=== PATIENT | female | born 1940 | race Caucasian/White ===

== ENCOUNTER 2017-11-24 12:30 | Inpatient (IN) | payer MEDICAID, MEDICARE ==
--- NOTE | 2017-11-24 13:17 | C.PDOC ---
History Of Present Illness 77 year old female presents to the emergency department with a complaint of a chest pain and shortness of breath x3-4 days. 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 came from [place] 1 mo ago. Associated left foot swelling, and fever at night. Denies cough. Time Seen by Provider: 11/24/17 13:05 Chief Complaint (Nursing): Shortness Of Breath History Per: Patient History/Exam Limitations: no limitations Onset/Duration Of Symptoms: Days Current Symptoms Are (Timing): Still Present Past Medical History Reviewed: Historical Data, Nursing Documentation, Vital Signs Vital Signs: Last Vital Signs Temp 98 F 11/24/17 12:34 Pulse 67 11/24/17 17:03 Resp 16 11/24/17 17:03 BP 138/72 11/24/17 17:03 Pulse Ox 97 11/24/17 17:03 - Medical History PMH: CAD, Diabetes, HTN, Hypercholesterolemia Surgical History: CABG, Coronary Stent Family History: States: Unknown Family Hx - Social History Hx Tobacco Use: No Hx Alcohol Use: No Hx Substance Use: No - Immunization History Hx Tetanus Toxoid Vaccination: No Hx Influenza Vaccination: Yes Hx Pneumococcal Vaccination: Yes Review Of Systems Except As Marked, All Systems Reviewed And Found Negative. (As per HPI, othewise negative) Constitutional: Positive for: Fever Cardiovascular: Positive for: Chest Pain Respiratory: Positive for: Shortness of Breath. Negative for: Cough Musculoskeletal: Positive for: Other (Left foot swelling) Neurological: Positive for: Weakness (Left-sided (not new)) Physical Exam - Physical Exam Appears: Well, Non-toxic, No Acute Distress Skin: Normal Color, Warm, Dry Head: Atraumatic, Normacephalic, No Tenderness Chest: Symmetrical, No Deformity Cardiovascular: Rhythm Regular, No Murmur Respiratory: No Decreased Breath Sounds, No Accessory Muscle Use, No Wheezing, Other (crackles at the bases of the lungs bilaterally) Gastrointestinal/Abdominal: Normal Exam, Soft, No Tenderness Extremity: Normal ROM (Left-sided weakness), No Pedal Edema Neurological/Psych: Oriented x3, Normal Speech, Other ((+)lue weakness ) ED Course And Treatment - Laboratory Results Result Diagrams: 11/24/17 13:21 11/24/17 13:21 O2 Sat by Pulse Oximetry: 99 (RA) Pulse Ox Interpretation: Normal Medical Decision Making Medical Decision Making: cp ro acs pe,dvt pna - Time: 1311 EKG BNP CMP Troponin I CBC w/ diff PTT & Prothrombin Chest x-ray Aspirin 325 mg PO Duplex Venous Lower Extrm B/L Reevaluation --EKG: Normal sinus rhythm at 80 bpm. Non-specific ST wave changes laterally. new changes from previous. ct neg. trop neg. discussed wtih hospitalist. accepted. asa given Disposition - Disposition Disposition: HOSPITALIZED Disposition Time: 04:00 Condition: STABLE - Clinical Impression Clinical Impression: Chest pain - Scribe Statement Scribe~Attestation: Documented by Violetta Jacinto, acting as a~scribe~for Agapito Scanlon DO. ~ Provider~Scribe~Attestation: All medical record entries made by the~Kathiibe~were at my direction and personally dictated by me. I have reviewed the chart and agree that the record accurately reflects my personal performance of the history, physical exam, medical decision making, and the department course for this patient. I have also personally directed, reviewed, and agree with the discharge instructions and disposition. ~
[2017-11-24 13:28] LABS: HEMOGLOBIN 13.2 g/dL (11.0-16.0); MEAN CELL VOLUME 86.1 fL (81.0-99.0); MEAN CORPUSCULAR HEMOGLOBIN 30.5 pg (27.0-31.0); MEAN CORPUSCULAR HGB CONC 35.4 g/dL (33.0-37.0); RBC 4.32 Mil/uL (3.80-5.20); RED CELL DISTRIBUTION WIDTH 13.1 % (11.5-14.5); WHITE BLOOD COUNT 10.8 K/uL (4.8-10.8)
[2017-11-24 13:29] LABS: BASO # 0.1 K/uL (0.0-0.2); BASO % 0.7 % (0.0-2.0); EOS # 0.5 K/uL (0.0-0.7); EOS % 4.5 % (0.0-4.0); LYMPH # 1.7 K/uL (1.0-4.3); LYMPH % 15.9 % (20.0-40.0); MEAN PLATELET VOLUME 8.7 fL (7.2-11.7); MONO # 0.5 K/uL (0.0-0.8); MONO % 4.9 % (0.0-10.0)
[2017-11-24 13:43] LABS: INR 1.1; PROTHROMBIN TIME 12.1 SECONDS (9.7-12.2)
[2017-11-24 13:44] LABS: ALB/GLOB RATIO 1.1 (1.0-2.1); ALBUMIN 3.9 g/dL (3.5-5.0); ALT/SGPT 13 U/L (9-52); AST/SGOT 20 U/L (14-36); BLOOD UREA NITROGEN 16 mg/dL (7-17); CALCIUM 8.7 mg/dl (8.6-10.4); GFR AFRICAN-AMERICAN > 60; GFR NON-AFRICAN AMERICAN > 60
--- NOTE | 2017-11-24 14:47 | RAD ---
PROCEDURE: CHEST RADIOGRAPH, 1 VIEW HISTORY: chest pain COMPARISON: 05/01/2014 FINDINGS: LUNGS: Clear. PLEURA: No pneumothorax or pleural fluid seen. CARDIOVASCULAR: Normal. OSSEOUS STRUCTURES: No significant abnormalities. VISUALIZED UPPER ABDOMEN: Normal. OTHER FINDINGS: None. IMPRESSION: No active disease.
--- NOTE | 2017-11-24 15:29 | VASCLAB ---
PROCEDURE: Lower Extremity Venous Duplex Exam. HISTORY: leg swelling PRIORS: None. TECHNIQUE: Bilateral common femoral, femoral, popliteal and posterior tibial, peroneal and great saphenous veins were evaluated. Flow was assessed with color Doppler, compressibility, assessment of phasic flow and augmentation response. Report prepared by SLIM Golden, RVT FINDINGS: RIGHT: 1. Common Femoral Vein: 1.1. Compressibility - Fully compressible: Thrombus - None : Flow - Phasic: Augmentation -Normal: Reflux - None. 2. Femoral Vein: 2.1. Compressibility - Fully compressible: Thrombus - None : Flow - Phasic: Augmentation -Normal: Reflux - None. 3. Popliteal Vein: 3.1. Compressibility - Fully compressible: Thrombus - None : Flow - Phasic: Augmentation -Normal: Reflux - None. 4. Posterior Tibial Vein: 4.1. Compressibility - Fully compressible: Thrombus - None: Flow - Phasic: Augmentation -Normal: Reflux - None. 5. Peroneal Vein: 5.1. Compressibility - Fully compressible: Thrombus - None: Flow - Phasic: Augmentation -Normal: Reflux - None. 6. Great Saphenous Vein: 6.1. Compressibility - Fully compressible: Thrombus - None: Flow - Phasic: Augmentation - Normal: Reflux - None. LEFT: 1. Common Femoral Vein: 1.1. Compressibility - Fully compressible: Thrombus - None: Flow - Phasic: Augmentation -Normal: Reflux - None. 2. Femoral Vein: 2.1. Compressibility - Fully compressible: Thrombus - None: Flow - Phasic: Augmentation -Normal: Reflux - None. 3. Popliteal Vein: 3.1. Compressibility - Fully compressible: Thrombus - None : Flow - Phasic: Augmentation -Normal: Reflux - None. 4. Posterior Tibial Vein: 4.1. Compressibility - Fully compressible: Thrombus - None: Flow - Phasic: Augmentation -Normal: Reflux - None. 5. Peroneal Vein: 5.1. Compressibility - Fully compressible: Thrombus - None: Flow - Phasic: Augmentation -Normal: Reflux - None. 6. Great Saphenous Vein: 6.1. Compressibility - Fully compressible: Thrombus - None: Flow - Phasic: Augmentation - Normal: Reflux - None. OTHER FINDINGS: Right: None significant. Left: None significant. IMPRESSION: Right: No evidence of deep or superficial vein thrombosis of the right lower extremity. Normal valve function noted of the right side. Left: No evidence of deep or superficial vein thrombosis of the left lower extremity. Normal valve function noted of the left side.
--- NOTE | 2017-11-24 16:45 | CT ---
PROCEDURE: CT Chest with contrast (Pulmonary Angiogram) HISTORY: cp sob COMPARISON: None available. TECHNIQUE: Axial computed tomography images were obtained of the chest in the pulmonary arterial phase of enhancement. Coronal and sagittal reformatted images were created and reviewed. Intravenous contrast dose: 100 mL Visipaque 320 Radiation dose: Total exam DLP = 0192.81 mGy-cm. This CT exam was performed using one or more of the following dose reduction techniques: Automated exposure control, adjustment of the mA and/or kV according to patient size, and/or use of iterative reconstruction technique. FINDINGS: PULMONARY ARTERIES: Unremarkable. No pulmonary embolism. AORTA: No acute findings. No thoracic aortic aneurysm. LUNGS: Incidental 5 mm nodule in left upper lobe, lingular segment. No followup required. No other pulmonary mass. Mild bilateral dependent atelectasis in the lower lobes. No infiltrate. PLEURAL SPACES: Unremarkable. No effusion or pneuomothorax. HEART: Unremarkable. No cardiomegaly. No significant pericardial effusion. LYMPH NODES: Incidental 8 mm pre-vascular mediastinal node common nonspecific. No other mediastinal or hilar lymphadenopathy. BONES, CHEST WALL: Unremarkable. No fracture or destructive lesion OTHER FINDINGS: Unremarkable. IMPRESSION: No evidence of pulmonary embolism. No pulmonary infiltrate. No acute abnormality.
--- NOTE | 2017-11-24 17:29 | CP.PCM.HP ---
<Neli Weiss - Last Filed: 11/24/17 18:45> History of Present Illness - History of Present Illness History of Present Illness: CC: Chest pain, shortness of breath HPI: Patient presents with chest pain with breathing and shortness of breath. Patient's daughter at bedside and states that patient came back recently from [place] and started feeling chest pain that comes and goes with breathing. Patient states that it's a sharp pain. Patient lives at home with daughter. Per Daughter, Patient had a stroke in [place] October 15, 2017 and October 20, 2017) where she lost motor function of left upper extremity and decreased strength of left leg. Patient sits on the futon and is moved around the house in a wheelchair. Patient's daughter and patient state that patient is forgetful and memory is foggy. Patient's daughter states that she has difficulty eating at times and has decreased appetite. Patient denies fever, chills, nausea, vomiting, diarrhea, constipation. PMH: DM, Hypercholesterolemia, DE with stents x 2 events (latest about 2 years ago), Stroke x 2 (October 15, 2017, October 20, 2017 in [place]) PSH: stent placement Social history: no ETOH, no illicit drugs. No smoking. Patient lives at home with daughter. PMD: Dr. Wu Present on Admission - Present on Admission Any Indicators Present on Admission: No History of DVT/PE: No History of Uncontrolled Diabetes: No Urinary Catheter: No Decubitus Ulcer Present: No Review of Systems - Review of Systems Systems not reviewed;Unavailable: Acuity of Condition All systems: reviewed and no additional remarkable complaints except - Constitutional Constitutional: As Per HPI - Respiratory Respiratory: As Per HPI, Cough (non-productive, occasional). absent: Dyspnea, Hemoptysis, Wheezing, Stridor, Excessive Mucous Production, Change in Mucous Color - Genitourinary Genitourinary: Dysuria, Urinary Incontinence Past Patient History - Past Social History Smoking Status: Never Smoked - CARDIAC Hx Hypercholesterolemia: Yes Hx Hypertension: Yes - PSYCHIATRIC Hx Substance Use: No - SURGICAL HISTORY Hx Coronary Artery Bypass Graft: Yes Hx Coronary Stent: Yes Meds Allergies/Adverse Reactions: Allergies Allergy/AdvReac Type Severity Reaction Status Date / Time No Known Allergies Allergy Verified 05/01/14 12:49 Physical Exam - Constitutional Appears: Non-toxic, No Acute Distress, Chronically Ill - Head Exam Head Exam: NORMAL INSPECTION, NORMOCEPHALIC - Eye Exam Eye Exam: EOMI, Normal appearance Pupil Exam: NORMAL ACCOMODATION, PERRL - ENT Exam ENT Exam: Mucous Membranes Moist, Normal Exam - Neck Exam Neck exam: Positive for: Full Rom, Normal Inspection - Respiratory Exam Respiratory Exam: Chest Wall Tenderness (right side that travels to back on palpation of ribs, sternal chest pain. ). absent: Accessory Muscle Use - Cardiovascular Exam Cardiovascular Exam: REGULAR RHYTHM, +S1, +S2 - GI/Abdominal Exam GI & Abdominal Exam: Normal Bowel Sounds, Soft. absent: Tenderness - Extremities Exam Extremities exam: Positive for: full ROM. Negative for: pedal edema - Back Exam Back exam: FULL ROM, NORMAL INSPECTION. absent: paraspinal tenderness - Neurological Exam Neurological exam: Alert Additional comments: Patient has 3/5 muscle strength of left lower extremity Patient has 5/5 muscle strength of right upper and right lower extremity Patient's left upper extremity is kept in a sling like position unless lifted by patients own right upper extremity. Patient states no sensation of left lower extremity - Psychiatric Exam Psychiatric exam: Normal Affect, Normal Mood - Skin Skin Exam: Dry, Intact, Pallor Results - Vital Signs Recent Vital Signs: Last Vital Signs Temp 98 F 11/24/17 12:34 Pulse 67 11/24/17 17:03 Resp 16 11/24/17 17:03 BP 138/72 11/24/17 17:03 Pulse Ox 97 11/24/17 17:03 - Labs Result Diagrams: 11/24/17 13:21 11/24/17 13:21 Labs: Laboratory Results - last 24 hr 11/24/17 11/24/17 11/24/17 13:21 13:21 13:21 WBC 10.8 RBC 4.32 Hgb 13.2 Hct 37.2 MCV 86.1 D MCH 30.5 MCHC 35.4 RDW 13.1 Plt Count 270 MPV 8.7 Neut % (Auto) 74.0 Lymph % (Auto) 15.9 L [place] % (Auto) 4.9 Eos % (Auto) 4.5 H Baso % (Auto) 0.7 Neut # (Auto) 8.0 H Lymph # (Auto) 1.7 [place] # (Auto) 0.5 Eos # (Auto) 0.5 Baso # (Auto) 0.1 PT 12.1 INR 1.1 APTT 30 Sodium 139 Potassium 3.7 Chloride 101 Carbon Dioxide 26 Anion Gap 16 BUN 16 Creatinine 0.8 Est GFR ( Amer) > 60 Est GFR (Non-Af Amer) > 60 Random Glucose 322 H Calcium 8.7 Total Bilirubin 0.5 AST 20 ALT 13 Alkaline Phosphatase 75 Troponin I < 0.0120 NT-Pro-B Natriuret Pep 68.0 Total Protein 7.6 Albumin 3.9 Globulin 3.7 Albumin/Globulin Ratio 1.1 Assessment & Plan - Assessment and Plan (Free Text) Assessment: chest pain, SOB, ACS r/o YARI neg x 1, f/u YARI Q6H 1900, 0100 CT Chest: incidental 5mm nodule on left upper lobe, lingular segment. No evidence of PE. no pulmonary infiltrate CXR: no active disease ASA 325 mg PO once given in ED Cardiac stent x 2 (last stent placed 2 years ago) Cardio consult: Dr. Muñoz Plavix 75 mg POQD ASA 81 mg PO QD glucotrol 10mg POQD CVA x 2 October 15, 2017 and October 20, 2017 Neuro: Dr. Yessica PAYTON glucotrol 10mg POQD ?arrythmia? cardizem Social: Speak with slab worker about Visiting nurse, home health care, patient may need physical therapy and/or help at home due to left lower extremity weakness and left upper extremity immobility secondary to stroke ( October 15, 2017 and October 20, 2017) discussed with Dr. Tia Weiss DO PGY1 - Date & Time Date: 11/24/17 Time: 18:26 <Nimo Weber - Last Filed: 11/28/17 00:10> Results - Vital Signs Recent Vital Signs: Last Vital Signs Temp 99 F 11/27/17 15:40 Pulse 74 11/27/17 15:46 Resp 18 11/27/17 15:40 BP 156/63 H 11/27/17 15:40 Pulse Ox 96 11/27/17 15:40 - Labs Result Diagrams: 11/27/17 07:20 11/27/17 07:20 Labs: Laboratory Results - last 24 hr 11/27/17 11/27/17 11/27/17 06:39 07:20 07:20 WBC 9.8 RBC 4.12 Hgb 12.4 Hct 35.5 MCV 86.1 MCH 30.1 MCHC 35.0 RDW 13.3 Plt Count 231 MPV 8.6 Neut % (Auto) 58.3 Lymph % (Auto) 27.2 [place] % (Auto) 7.1 Eos % (Auto) 6.8 H Baso % (Auto) 0.6 Neut # (Auto) 5.7 Lymph # (Auto) 2.7 [place] # (Auto) 0.7 Eos # (Auto) 0.7 Baso # (Auto) 0.1 Sodium 142 Potassium 5.0 Chloride 104 Carbon Dioxide 29 Anion Gap 14 BUN 9 Creatinine 0.8 Est GFR ( Amer) > 60 Est GFR (Non-Af Amer) > 60 POC Glucose (mg/dL) 133 H Random Glucose 134 H Calcium 9.0 Phosphorus 3.9 Magnesium 1.8 Total Bilirubin 0.4 AST 23 ALT 10 Alkaline Phosphatase 68 Total Protein 7.2 Albumin 3.8 Globulin 3.4 Albumin/Globulin Ratio 1.1 11/27/17 11/27/17 11/27/17 12:00 16:59 21:11 WBC RBC Hgb Hct MCV MCH MCHC RDW Plt Count MPV Neut % (Auto) Lymph % (Auto) [place] % (Auto) Eos % (Auto) Baso % (Auto) Neut # (Auto) Lymph # (Auto) [place] # (Auto) Eos # (Auto) Baso # (Auto) Sodium Potassium Chloride Carbon Dioxide Anion Gap BUN Creatinine Est GFR ( Amer) Est GFR (Non-Af Amer) POC Glucose (mg/dL) 159 H 151 H 126 H Random Glucose Calcium Phosphorus Magnesium Total Bilirubin AST ALT Alkaline Phosphatase Total Protein Albumin Globulin Albumin/Globulin Ratio Attending/Attestation - Attestation I have personally seen and examined this patient.: Yes I have fully participated in the care of the patient.: Yes I have reviewed all pertinent clinical information: Yes Notes (Text): Patient was seen and examined by me in the ER History taken from her daughter. Patient has dementia.s/p stroke in October 2017 with L side weakness She was brought for chest pain. 1.Chest r/o ACS 2.Recent CVA Neuro consult,work up for CVA and PT 3.HTN ,s/p stent and CAD continue home meds Assessment and the plan discussed with the resident I agree with the documentation of the residents assessment athe plan
[2017-11-24] MEDS ORDERED: diltiaZEM 240 mg/24 Hours CD Cap PO ONE (18:40)
[2017-11-24] MEDS ORDERED: Glucagon Recombinant 1 mg Inj IM PRN (18:41)
[2017-11-24] MEDS ORDERED: Dextrose 50% SYRINGE Inj (50 ml) IV PRN (18:41)
[2017-11-24 20:07] LABS: CK-MB 0.84 ng/mL (0.0-3.38); TROPONIN I 0.016 ng/mL (0.00-0.120)
--- NOTE | 2017-11-24 21:46 | CP.PCM.CON ---
History of Present Illness - History of Present Illness History of Present Illness: 77 years old lady with history of diabetes, questionable coronary artery disease and percutaneous intervention. The daughter does not family member that time and place of THE procedure if any. Reportedly she was in [place] where she had cerebrovascular accident, currently she is confused bedridden and left arm flaccid. She was admitted through the emergency department with reported chest pain. Upon questioning there is no chest pain and no EKG changes, enzymes are negative. There was a report in the chart of pleuritic chest pain however the patient and the daughter denies at this time. With the history of diabetes the likelihood of coronary artery disease is high whether or not with percutaneous intervention mentioned. We will rule out DE by enzymes check an echocardiogram and observe. She has a high risk for complication as invasive management. We will follow-up with the neurology workup. Review of Systems - Review of Systems Systems not reviewed;Unavailable: Altered Mental Status, Language Barrier - Constitutional Constitutional: Anorexia, Weakness - EENT Eyes: absent: Discharge Ears: absent: Ear Discharge, Dizziness Nose/Mouth/Throat: absent: Epistaxis - Cardiovascular Cardiovascular: absent: Acrocyanosis, Chest Pain, Diaphoresis, Dyspnea, Edema, Palpitations, Syncope - Respiratory Respiratory: absent: Cough, Hemoptysis - Gastrointestinal Gastrointestinal: absent: Abdominal Pain, Diarrhea, Hematochezia, Vomiting - Genitourinary Genitourinary: absent: Change in Urinary Stream - Reproductive: Female Reproductive:Female: Post Menopausal Past Patient History - Past Social History Smoking Status: Never Smoked - CARDIAC Hx Hypercholesterolemia: Yes Hx Hypertension: Yes - MUSCULOSKELETAL/RHEUMATOLOGICAL Hx Falls: Yes - PSYCHIATRIC Hx Substance Use: No - SURGICAL HISTORY Hx Coronary Artery Bypass Graft: Yes Hx Coronary Stent: Yes Meds Allergies/Adverse Reactions: Allergies Allergy/AdvReac Type Severity Reaction Status Date / Time No Known Allergies Allergy Verified 05/01/14 12:49 - Medications Medications: Current Medications Aspirin (Aspirin Chewable) 81 mg PO DAILY [facility] Clopidogrel Bisulfate (Plavix) 75 mg PO DAILY [facility] Dextrose (Dextrose 50% Inj) 0 ml IV STAT PRN; Protocol PRN Reason: Hypoglycemia Protocol Dextrose (Glutose 15) 0 gm PO ONCE PRN; Protocol PRN Reason: Hypoglycemia Protocol Diltiazem HCl (Cardizem) 240 mg PO DAILY [facility] Glipizide (Glucotrol) 10 mg PO DAILY [facility] Glucagon (Glucagen Diagnostic Kit) 0 mg IM STAT PRN; Protocol PRN Reason: Hypoglycemia Protocol Heparin Sodium (Porcine) (Heparin) 5,000 units SC Q8 [facility] Dextrose (Dextrose 5% In Water 1000 Ml) 1,000 mls @ 0 mls/hr IV .Q0M PRN; Protocol; Per Protocol PRN Reason: Hypoglycemia Protocol Insulin Human Regular (Novolin R) 0 unit SC ACHS [facility] PRN Reason: Protocol Rosuvastatin Calcium (Crestor) 20 mg PO HS [facility] Physical Exam - Constitutional Appears: Non-toxic - Head Exam Head Exam: ATRAUMATIC - Eye Exam Eye Exam: EOMI - ENT Exam ENT Exam: Mucous Membranes Moist - Neck Exam Neck exam: Negative for: Lymphadenopathy, Thyromegaly - Respiratory Exam Respiratory Exam: Clear to Auscultation Bilateral. absent: Rales - Cardiovascular Exam Cardiovascular Exam: REGULAR RHYTHM, Systolic Murmur - GI/Abdominal Exam GI & Abdominal Exam: Normal Bowel Sounds. absent: Organomegaly - Rectal Exam Rectal Exam: Deferred - Extremities Exam Extremities exam: Positive for: normal capillary refill. Negative for: calf tenderness - Neurological Exam Neurological exam: Altered - Psychiatric Exam Psychiatric exam: Anxious - Skin Skin Exam: Dry Results - Vital Signs Recent Vital Signs: Last Vital Signs Temp 98 F 11/24/17 12:34 Pulse 67 11/24/17 17:03 Resp 16 11/24/17 17:03 BP 138/72 11/24/17 17:03 Pulse Ox 99 11/24/17 19:19 - Labs Result Diagrams: 11/24/17 13:21 11/24/17 13:21 Labs: Laboratory Results - last 24 hr 11/24/17 11/24/17 11/24/17 13:21 13:21 13:21 WBC 10.8 RBC 4.32 Hgb 13.2 Hct 37.2 MCV 86.1 D MCH 30.5 MCHC 35.4 RDW 13.1 Plt Count 270 MPV 8.7 Neut % (Auto) 74.0 Lymph % (Auto) 15.9 L [place] % (Auto) 4.9 Eos % (Auto) 4.5 H Baso % (Auto) 0.7 Neut # (Auto) 8.0 H Lymph # (Auto) 1.7 [place] # (Auto) 0.5 Eos # (Auto) 0.5 Baso # (Auto) 0.1 PT 12.1 INR 1.1 APTT 30 Sodium 139 Potassium 3.7 Chloride 101 Carbon Dioxide 26 Anion Gap 16 BUN 16 Creatinine 0.8 Est GFR ( Amer) > 60 Est GFR (Non-Af Amer) > 60 Random Glucose 322 H Calcium 8.7 Total Bilirubin 0.5 AST 20 ALT 13 Alkaline Phosphatase 75 Total Creatine Kinase CK-MB (Mass) Troponin I < 0.0120 NT-Pro-B Natriuret Pep 68.0 Total Protein 7.6 Albumin 3.9 Globulin 3.7 Albumin/Globulin Ratio 1.1 11/24/17 19:35 WBC RBC Hgb Hct MCV MCH MCHC RDW Plt Count MPV Neut % (Auto) Lymph % (Auto) [place] % (Auto) Eos % (Auto) Baso % (Auto) Neut # (Auto) Lymph # (Auto) [place] # (Auto) Eos # (Auto) Baso # (Auto) PT INR APTT Sodium Potassium Chloride Carbon Dioxide Anion Gap BUN Creatinine Est GFR ( Amer) Est GFR (Non-Af Amer) Random Glucose Calcium Total Bilirubin AST ALT Alkaline Phosphatase Total Creatine Kinase 32 CK-MB (Mass) 0.84 Troponin I 0.0160 NT-Pro-B Natriuret Pep Total Protein Albumin Globulin Albumin/Globulin Ratio Assessment & Plan (1) Chest pain Status: Acute Comment: atypical with pleuritic component check an echocardiogram and enzymes (2) History of CVA (cerebrovascular accident) Status: Chronic (3) Diabetes mellitus Status: Chronic (4) History of percutaneous coronary intervention Status: Chronic
[2017-11-24] MEDS: (Novolin R) Insulin Human Regular 100 units/ml vial SC SCH (22:21)
[2017-11-25 01:49] LABS: CK-MB 0.95 ng/mL (0.0-3.38); TROPONIN I 0.012 ng/mL (0.00-0.120)
[2017-11-25] MEDS: (Novolin R) Insulin Human Regular 100 units/ml vial SC SCH ×4 (08:00→21:57)
[2017-11-25 08:18] LABS: BASO # 0.1 K/uL (0.0-0.2); BASO % 0.8 % (0.0-2.0); EOS # 0.8 K/uL (0.0-0.7); EOS % 8.9 % (0.0-4.0); HEMOGLOBIN 12.5 g/dL (11.0-16.0); LYMPH # 2.2 K/uL (1.0-4.3); LYMPH % 23.8 % (20.0-40.0); MEAN CELL VOLUME 85.1 fL (81.0-99.0); MEAN CORPUSCULAR HEMOGLOBIN 30.1 pg (27.0-31.0); MEAN CORPUSCULAR HGB CONC 35.4 g/dL (33.0-37.0); MEAN PLATELET VOLUME 8.4 fL (7.2-11.7); MONO # 0.5 K/uL (0.0-0.8); MONO % 5.5 % (0.0-10.0); NEUT # 5.6 K/uL (1.8-7.0); RBC 4.14 Mil/uL (3.80-5.20); RED CELL DISTRIBUTION WIDTH 12.9 % (11.5-14.5); WHITE BLOOD COUNT 9.1 K/uL (4.8-10.8)
[2017-11-25 08:30] LABS: ALBUMIN 3.4 g/dL (3.5-5.0); ALT/SGPT 15 U/L (9-52); AST/SGOT 20 U/L (14-36); BLOOD UREA NITROGEN 12 mg/dL (7-17); CALCIUM 9.1 mg/dl (8.6-10.4); GFR AFRICAN-AMERICAN > 60; GFR NON-AFRICAN AMERICAN > 60; HDL CHOLESTEROL 30 mg/dL (30-70)
[2017-11-25 08:41] LABS: LDL CHOLESTEROL 73 mg/dL (0-129)
[2017-11-25] MEDS ORDERED: diltiaZEM 240 mg/24 Hours CD Cap PO SCH (10:00)
--- NOTE | 2017-11-25 10:11 | CP.PCM.PN ---
Subjective - Date & Time of Evaluation Date of Evaluation: 11/25/17 Time of Evaluation: 09:45 - Subjective Subjective: Patient seen and examined at bedside with family present. No acute events reported overnight. Patient still has no strength on left upper extremity and decreased strength on left lower extremity. Patient has good appetite, resting in bed comfortably. She denies fever, chills, shortness of breath, chest pain, nausea, vomiting, diarrhea, or urinary symptoms. Objective - Vital Signs/Intake and Output Vital Signs (last 24 hours): Temp Pulse Resp BP Pulse Ox 98.0 F 80 20 155/62 H 99 11/25/17 07:00 11/25/17 07:00 11/25/17 07:00 11/25/17 07:00 11/25/17 07:00 Intake and Output: 11/25/17 11/25/17 06:59 18:59 Intake Total 260 Balance 260 - Medications Medications: Current Medications Aspirin (Aspirin Chewable) 81 mg PO DAILY [facility] Clopidogrel Bisulfate (Plavix) 75 mg PO DAILY [facility] Dextrose (Dextrose 50% Inj) 0 ml IV STAT PRN; Protocol PRN Reason: Hypoglycemia Protocol Dextrose (Glutose 15) 0 gm PO ONCE PRN; Protocol PRN Reason: Hypoglycemia Protocol Diltiazem HCl (Cardizem) 240 mg PO DAILY [facility] Glipizide (Glucotrol) 10 mg PO DAILY [facility] Glucagon (Glucagen Diagnostic Kit) 0 mg IM STAT PRN; Protocol PRN Reason: Hypoglycemia Protocol Heparin Sodium (Porcine) (Heparin) 5,000 units SC Q8 [facility] Last Admin: 11/25/17 05:54 Dose: 5,000 units Dextrose (Dextrose 5% In Water 1000 Ml) 1,000 mls @ 0 mls/hr IV .Q0M PRN; Protocol; Per Protocol PRN Reason: Hypoglycemia Protocol Insulin Human Regular (Novolin R) 0 unit SC ACHS [facility] PRN Reason: Protocol Last Admin: 11/24/17 22:21 Dose: Not Given Rosuvastatin Calcium (Crestor) 20 mg PO HS [facility] Last Admin: 11/24/17 22:20 Dose: 20 mg - Labs Labs: 11/25/17 08:05 11/25/17 08:05 PT 12.1 SECONDS (9.7-12.2) 11/24/17 13:21 INR 1.1 11/24/17 13:21 APTT 30 SECONDS (21-34) 11/24/17 13:21 - Additional Findings Additional findings: - Constitutional Appears: Non-toxic, No Acute Distress, Chronically Ill - Head Exam Head Exam: NORMAL INSPECTION, NORMOCEPHALIC - Eye Exam Eye Exam: EOMI, Normal appearance Pupil Exam: NORMAL ACCOMODATION, PERRL - ENT Exam ENT Exam: Mucous Membranes Moist, Normal Exam - Neck Exam Neck exam: Positive for: Full Rom, Normal Inspection - Respiratory Exam Respiratory Exam: Chest Wall Tenderness (right side that travels to back on palpation of ribs, sternal chest pain. ). absent: Accessory Muscle Use - Cardiovascular Exam Cardiovascular Exam: REGULAR RHYTHM, +S1, +S2 - GI/Abdominal Exam GI & Abdominal Exam: Normal Bowel Sounds, Soft. absent: Tenderness - Extremities Exam Extremities exam: Positive for: full ROM. Negative for: pedal edema - Back Exam Back exam: FULL ROM, NORMAL INSPECTION. absent: paraspinal tenderness - Neurological Exam Neurological exam: Alert Additional comments: Patient has 3/5 muscle strength of left lower extremity Patient has 5/5 muscle strength of right upper and right lower extremity Patient's left upper extremity is kept in a sling like position unless lifted by patients own right upper extremity. Patient states no sensation of left lower extremity - Psychiatric Exam Psychiatric exam: Normal Affect, Normal Mood - Skin Skin Exam: Dry, Intact, Pallor Assessment and Plan - Assessment and Plan (Free Text) Assessment: Chest pain -Resolved -Troponin negative x3 -EKG negative for acute ST changes -CTA shows no evidence of PE -LE doppler shows no evidence of DVT -Echo shows estimate EF 46%, mild impaired systolic function -Cardiology consulted, Dr. Muñoz help appreciated -Follow neurology recommendations -Plavix 75 mg -ASA 81 mg Hx of Right sided CVA -Neurology consulted, Dr. 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 Per Dr. Lama, will arrange for neurology intervention procedure -Follow up with carotid doppler DM -Glipizide 10mg po -ISS -Hypoglycemic protocol -Accucheck ACHS Prophylactic measures -Plavix, ASA -GI ppx not indicated -PT/OT Dispo: patient will require home visiting nurse and physical therapy upon discharge
--- NOTE | 2017-11-25 13:10 | CARD ---
APPROVED REPORT EXAM: Two-dimensional and M-mode echocardiogram with Doppler and color Doppler. Other Information Quality : GoodRhythm : INDICATION CVA/TIA CAD Chest Pain 2D DIMENSIONS IVSd1.3 (0.7-1.1cm)LVDd2.9 (3.9-5.9cm) LVOT Diameter1.5 (1.8-2.4cm)PWd1.3 (0.7-1.1cm) LVDs2.2 (2.5-4.0cm)FS (%) 22.0 % LVEF (%)46.1 (>50%) M-Mode DIMENSIONS Left Atrium (MM)3.16 (2.5-4.0cm)Aortic Root2.76 (2.2-3.7cm) Aortic Cusp Exc.1.46 (1.5-2.0cm) Aortic Valve AI P 1/2 [id number] Mitral Valve MV E Dziiemhq147.1cm/sMV A Jcndekrn374.9cm/sMV [id number] E/A ratio0.9MVA (PHT)2.00cm2 TDI E/Lateral E'0.0E/Medial E'0.0 Tricuspid Valve TR Peak Grgzoarw765lk/sTR Peak Gr.[id number] LEFT VENTRICLE The left ventricle is normal size. There is mild concentric left ventricular hypertrophy. The systolic function is mildly impaired. There is global hypokinesis of the left ventricle. Transmitral Doppler flow pattern is Grade I-abnormal relaxation pattern. RIGHT VENTRICLE The right ventricle is normal size. There is normal right ventricular wall thickness. The right ventricular systolic function is normal. ATRIA The left atrium size is normal. The right atrium size is normal. AORTIC VALVE The aortic valve is moderately thickened. There is mild aortic regurgitation. There is no aortic valvular stenosis. MITRAL VALVE The mitral valve is moderately thickened. There is no mitral valve stenosis. There is no mitral valve regurgitation noted. TRICUSPID VALVE The tricuspid valve is normal in structure. There is no tricuspid valve regurgitation noted. GREAT VESSELS The aortic root is normal in size. PERICARDIAL EFFUSION There is a small loculated anterior pericardial effusion. <Conclusion> The left ventricle is normal size. There is mild concentric left ventricular hypertrophy. The systolic function is mildly impaired. There is global hypokinesis of the left ventricle. Transmitral Doppler flow pattern is Grade I-abnormal relaxation pattern. There is mild aortic regurgitation.
--- NOTE | 2017-11-25 15:09 | MRI ---
PROCEDURE: MRI BRAIN WITHOUT CONTRAST HISTORY: stroke COMPARISON: None. TECHNIQUE: Multiplanar, multisequence MR images of the brain were obtained without intravenous contrast enhancement. FINDINGS: HEMORRHAGE: None. DWI: Heterogeneous restricted diffusion pattern seen involving a sub distribution of the anterior to mid right middle cerebral artery distribution compatible with a subacute or acute infarct with small infarction of the right parietal lobe ended discontinuous fashion. No significant mass effect appreciated in the infarcted may be hyperacute. BRAIN PARENCHYMA: Diffuse cerebral atrophy and chronic microangiopathy are reiterated with by thalamic, bilateral basal ganglia chronic lacunes identified. A chronic lobar infarct in the left occipital lobe. One are 2 tiny chronic lacune is seen in the right cerebellum as well. VENTRICLES: Unremarkable. No hydrocephalus. CRANIUM: Unremarkable. ORBITS: Grossly unremarkable. PARANASAL SINUSES/MASTOIDS: Clear VASCULAR SYSTEM: Skull base flow voids intact. OTHER FINDINGS: None. IMPRESSION: 1. Potential hyperacute lobar infarction right frontal lobe and limited portions of the right parietal lobe as there is no significant mass effect at this time. 2. Small chronic lobar infarction left occipital lobe. Multiple chronic lacunes noted. 3. Reiterated age related neuro degenerative changes. CT follow-up advised.
[2017-11-25] MEDS ORDERED: Iohexol 300 100 ML IJ ONE (16:23)
--- NOTE | 2017-11-25 16:54 | CT ---
PROCEDURE: CT Angiography of the Brain. HISTORY: stroke COMPARISON: None available. TECHNIQUE: CT angiography of the intracranial and neck arteries was performed. Coronal and sagittal maximum intensity projection reformatted images were generated. Contrast Dose: Omnipaque 300, 100 cc Radiation dose:Total exam DLP = 381.26 mGy-cm. This CT exam was performed using one or more of the following dose reduction techniques: Automated exposure control, adjustment of the mA and/or kV according to patient size, and/or use of iterative reconstruction technique. FINDINGS: INTERNAL CEREBRAL ARTERIES: The right ICA is occluded completely. The left internal carotid arteries skull base, petrous, cavernous and supraclinoid segments are bilaterally widely patent. ANTERIOR CEREBRAL ARTERIES: Unremarkable. A1 and A2 segments are widely patent. Smaller distal branches unremarkable, as visualized. MIDDLE CEREBRAL ARTERIES: Unremarkable. M1 and M2 segments are widely patent. Perisylvian branches grossly symmetric. POSTERIOR CIRCULATION: Basilar Artery: Unremarkable. Distal Vertebral Arteries: Unremarkable. Posterior Cerebral Arteries: Unremarkable. Posterior Inferior Cerebellar Arteries: Unremarkable. NECK CTA: Common Carotid arteries: The bilateral common carotid appear widely patent from their origins to their bifurcations with no significant stenosis appreciated. No evidence to suggest common carotid artery dissection. Internal Carotid arteries: There is a high-grade stenosis at the origin of the right internal carotid artery with the subsequent occlusion proxy 1 cm after the origin. No reconstitution is appreciated distally. No significant stenosis is appreciated throughout the left cervical internal carotid artery segment and there is no evidence of dissection either. External Carotid arteries: Appear unremarkable bilaterally. Vertebral arteries: The bilateral vertebral arteries appear normal in caliber from their origins to their junction with the basilar artery. No significant stenosis or definite pattern of dissection. ANEURYSM/ VASCULAR MALFORMATIONS: None. OTHER FINDINGS: Incidental extensive coronary artery atherosclerosis. IMPRESSION: 1. 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 No enhancement is seen in the skullbase/ intracranial right ICA segment either. Not necessarily discordant with ultrasound carotid arteries 11/25/2017 as this test covers only the initial few cm of the internal carotid arteries bilaterally. 2. Right anterior and middle cerebral artery collateralized blood flows provided via patent anterior communicating and posterior communicating arteries. 3. Widely patent cervical and, skullbase and intracranial left ICA. Widely patent bilateral common carotid arteries.
--- NOTE | 2017-11-25 22:33 | CP.PCM.CON ---
History of Present Illness - History of Present Illness History of Present Illness: 77 yr old woman who was brought here from [place], with chief complaint of chest pain and shortness of breath, who also had a stroke on October 20, 2017 when she was in [place], presenting with acute leg weakness. Apparently, the patient had a prior stroke, territory unknown about a year ago, leaving her with right arm weakness. She was evaluated there, but couldnt complete her workup due to lack of electricity in [facility]. Daughter became concerned when she became weaker in her left leg a week ago and brought her to [place]. 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 She has minimal decrease in ft, and pin on the left side, and no facial droop. Carotid Dopplers were already done and MRI Brain is pending. Dopplers show 100 % occlusion in the right ICA. The patient is already on aspirin and plavix. PMH/PSH: DM, HTN, FH/SH: lives in [place], no tobacco, no etoh. Has 8 children. All:nkda ON exam: AAOX3. pupils 3mm-2mm with light EOMI. CN 2-12 normal. Speech fluent, can name and repeat. motor; right arm plegia, left le/5, left foot drop, Sensory: decreased ft, pin, in left arm and left leg. Gait : not tested. DTR: +3 rul and rll and +2 ll bl. Toes downgoing. No clonus. Past Patient History - Past Social History Smoking Status: Never Smoked - CARDIAC Hx Hypercholesterolemia: Yes Hx Hypertension: Yes - MUSCULOSKELETAL/RHEUMATOLOGICAL Hx Falls: Yes - PSYCHIATRIC Hx Substance Use: No - SURGICAL HISTORY Hx Coronary Artery Bypass Graft: Yes Hx Coronary Stent: Yes Meds Allergies/Adverse Reactions: Allergies Allergy/AdvReac Type Severity Reaction Status Date / Time No Known Allergies Allergy Verified 05/01/14 12:49 - Medications Medications: Current Medications Aspirin (Aspirin Chewable) 81 mg PO DAILY [facility] Clopidogrel Bisulfate (Plavix) 75 mg PO DAILY [facility] Dextrose (Dextrose 50% Inj) 0 ml IV STAT PRN; Protocol PRN Reason: Hypoglycemia Protocol Dextrose (Glutose 15) 0 gm PO ONCE PRN; Protocol PRN Reason: Hypoglycemia Protocol Diltiazem HCl (Cardizem) 240 mg PO DAILY [facility] Glipizide (Glucotrol) 10 mg PO DAILY [facility] Glucagon (Glucagen Diagnostic Kit) 0 mg IM STAT PRN; Protocol PRN Reason: Hypoglycemia Protocol Heparin Sodium (Porcine) (Heparin) 5,000 units SC Q8 [facility] Last Admin: 11/25/17 05:54 Dose: 5,000 units Dextrose (Dextrose 5% In Water 1000 Ml) 1,000 mls @ 0 mls/hr IV .Q0M PRN; Protocol; Per Protocol PRN Reason: Hypoglycemia Protocol Insulin Human Regular (Novolin R) 0 unit SC ACHS [facility] PRN Reason: Protocol Last Admin: 11/24/17 22:21 Dose: Not Given Rosuvastatin Calcium (Crestor) 20 mg PO HS [facility] Last Admin: 11/24/17 22:20 Dose: 20 mg Results - Vital Signs Recent Vital Signs: Last Vital Signs Temp 98.0 F 11/25/17 07:00 Pulse 80 11/25/17 07:00 Resp 20 11/25/17 07:00 BP 155/62 H 11/25/17 07:00 Pulse Ox 99 11/25/17 07:00 - Labs Result Diagrams: 11/25/17 08:05 11/25/17 08:05 Labs: Laboratory Results - last 24 hr 11/24/17 11/24/17 11/24/17 13:21 13:21 13:21 WBC 10.8 RBC 4.32 Hgb 13.2 Hct 37.2 MCV 86.1 D MCH 30.5 MCHC 35.4 RDW 13.1 Plt Count 270 MPV 8.7 Neut % (Auto) 74.0 Lymph % (Auto) 15.9 L [place] % (Auto) 4.9 Eos % (Auto) 4.5 H Baso % (Auto) 0.7 Neut # (Auto) 8.0 H Lymph # (Auto) 1.7 [place] # (Auto) 0.5 Eos # (Auto) 0.5 Baso # (Auto) 0.1 PT 12.1 INR 1.1 APTT 30 Sodium 139 Potassium 3.7 Chloride 101 Carbon Dioxide 26 Anion Gap 16 BUN 16 Creatinine 0.8 Est GFR ( Amer) > 60 Est GFR (Non-Af Amer) > 60 POC Glucose (mg/dL) Random Glucose 322 H Calcium 8.7 Phosphorus Magnesium Total Bilirubin 0.5 AST 20 ALT 13 Alkaline Phosphatase 75 Total Creatine Kinase CK-MB (Mass) Troponin I < 0.0120 NT-Pro-B Natriuret Pep 68.0 Total Protein 7.6 Albumin 3.9 Globulin 3.7 Albumin/Globulin Ratio 1.1 Triglycerides Cholesterol LDL Cholesterol Direct HDL Cholesterol 11/24/17 11/24/17 11/25/17 19:35 21:36 01:20 WBC RBC Hgb Hct MCV MCH MCHC RDW Plt Count MPV Neut % (Auto) Lymph % (Auto) [place] % (Auto) Eos % (Auto) Baso % (Auto) Neut # (Auto) Lymph # (Auto) [place] # (Auto) Eos # (Auto) Baso # (Auto) PT INR APTT Sodium Potassium Chloride Carbon Dioxide Anion Gap BUN Creatinine Est GFR ( Amer) Est GFR (Non-Af Amer) POC Glucose (mg/dL) 174 H Random Glucose Calcium Phosphorus Magnesium Total Bilirubin AST ALT Alkaline Phosphatase Total Creatine Kinase 32 31 CK-MB (Mass) 0.84 0.95 Troponin I 0.0160 0.0120 NT-Pro-B Natriuret Pep Total Protein Albumin Globulin Albumin/Globulin Ratio Triglycerides Cholesterol LDL Cholesterol Direct HDL Cholesterol 11/25/17 11/25/17 11/25/17 06:13 08:05 08:05 WBC 9.1 RBC 4.14 Hgb 12.5 Hct 35.2 MCV 85.1 MCH 30.1 MCHC 35.4 RDW 12.9 Plt Count 256 MPV 8.4 Neut % (Auto) 61.0 Lymph % (Auto) 23.8 [place] % (Auto) 5.5 Eos % (Auto) 8.9 H Baso % (Auto) 0.8 Neut # (Auto) 5.6 Lymph # (Auto) 2.2 [place] # (Auto) 0.5 Eos # (Auto) 0.8 H Baso # (Auto) 0.1 PT INR APTT Sodium 140 Potassium 4.2 Chloride 103 Carbon Dioxide 26 Anion Gap 15 BUN 12 Creatinine 0.6 L Est GFR ( Amer) > 60 Est GFR (Non-Af Amer) > 60 POC Glucose (mg/dL) 167 H Random Glucose 143 H Calcium 9.1 Phosphorus 3.9 Magnesium 1.8 Total Bilirubin 0.4 AST 20 ALT 15 Alkaline Phosphatase 65 Total Creatine Kinase CK-MB (Mass) Troponin I NT-Pro-B Natriuret Pep Total Protein 6.6 Albumin 3.4 L Globulin 3.3 Albumin/Globulin Ratio 1.0 Triglycerides 168 H Cholesterol 130 LDL Cholesterol Direct 73 HDL Cholesterol 30 11/25/17 11:29 WBC RBC Hgb Hct MCV MCH MCHC RDW Plt Count MPV Neut % (Auto) Lymph % (Auto) [place] % (Auto) Eos % (Auto) Baso % (Auto) Neut # (Auto) Lymph # (Auto) [place] # (Auto) Eos # (Auto) Baso # (Auto) PT INR APTT Sodium Potassium Chloride Carbon Dioxide Anion Gap BUN Creatinine Est GFR ( Amer) Est GFR (Non-Af Amer) POC Glucose (mg/dL) 167 H Random Glucose Calcium Phosphorus Magnesium Total Bilirubin AST ALT Alkaline Phosphatase Total Creatine Kinase CK-MB (Mass) Troponin I NT-Pro-B Natriuret Pep Total Protein Albumin Globulin Albumin/Globulin Ratio Triglycerides Cholesterol LDL Cholesterol Direct HDL Cholesterol Assessment & Plan - Assessment and Plan (Free Text) Assessment: 77 yr old woman with what appears to subacute stroke on MRI BRain Plan: 77 yr old woman with subacute stroke that is ischemic in nature, with MRI Brain showing stroke in right motor strip extending in to the subcortical regions. This is her second stroke in a year, and CTA of head and neck would be helpful, as well as stroke workup. Plan: 1. aspirin 325 mg po daily with plavix 75 mg po daily. 2. IV fluids normal saline 100 cc's 3. Echo 4. Physical therapy 5. DVT prophylaxis with venodynes. 6. Possible neurovascular consult if cta shows significant stenosis. Thank you Dr. copeland
--- NOTE | 2017-11-26 07:43 | CP.PCM.PN ---
Subjective - Date & Time of Evaluation Date of Evaluation: 11/26/17 Time of Evaluation: 07:43 - Subjective Subjective: Patient seen and examined at bedside. No acute events reported overnight. Patient is resting in bed comfortably eating breakfast. She still complains of no strength on left upper extremity and decreased strength on left lower extremity. She denies fever, chills, shortness of breath, chest pain, nausea, vomiting, diarrhea, or urinary symptoms. Objective - Vital Signs/Intake and Output Vital Signs (last 24 hours): Temp Pulse Resp BP Pulse Ox 98.3 F 62 20 144/58 L 96 11/26/17 04:25 11/26/17 04:25 11/26/17 04:25 11/26/17 04:25 11/26/17 04:25 Intake and Output: 11/26/17 11/26/17 06:59 18:59 Output Total 300 Balance -300 - Medications Medications: Current Medications Aspirin (Aspirin Chewable) 81 mg PO DAILY [facility] Last Admin: 11/25/17 14:13 Dose: 81 mg Clopidogrel Bisulfate (Plavix) 75 mg PO DAILY [facility] Last Admin: 11/25/17 14:13 Dose: 75 mg Dextrose (Dextrose 50% Inj) 0 ml IV STAT PRN; Protocol PRN Reason: Hypoglycemia Protocol Dextrose (Glutose 15) 0 gm PO ONCE PRN; Protocol PRN Reason: Hypoglycemia Protocol Diltiazem HCl (Cardizem) 240 mg PO DAILY [facility] Last Admin: 11/25/17 14:13 Dose: 240 mg Glipizide (Glucotrol) 10 mg PO DAILY [facility] Glucagon (Glucagen Diagnostic Kit) 0 mg IM STAT PRN; Protocol PRN Reason: Hypoglycemia Protocol Heparin Sodium (Porcine) (Heparin) 5,000 units SC Q8 [facility] Last Admin: 11/26/17 05:25 Dose: 5,000 units Dextrose (Dextrose 5% In Water 1000 Ml) 1,000 mls @ 0 mls/hr IV .Q0M PRN; Protocol; Per Protocol PRN Reason: Hypoglycemia Protocol Insulin Human Regular (Novolin R) 0 unit SC ACHS [facility] PRN Reason: Protocol Last Admin: 11/25/17 21:57 Dose: Not Given Rosuvastatin Calcium (Crestor) 20 mg PO HS [facility] Last Admin: 11/25/17 21:57 Dose: 20 mg - Labs Labs: 11/25/17 08:05 11/25/17 08:05 PT 12.1 SECONDS (9.7-12.2) 11/24/17 13:21 INR 1.1 11/24/17 13:21 APTT 30 SECONDS (21-34) 11/24/17 13:21 - Additional Findings Additional findings: - Constitutional Appears: Non-toxic, No Acute Distress, Chronically Ill - Head Exam Head Exam: NORMAL INSPECTION, NORMOCEPHALIC - Eye Exam Eye Exam: EOMI, Normal appearance Pupil Exam: NORMAL ACCOMODATION, PERRL - ENT Exam ENT Exam: Mucous Membranes Moist, Normal Exam - Neck Exam Neck exam: Positive for: Full Rom, Normal Inspection - Respiratory Exam Respiratory Exam: Chest Wall Tenderness (right side that travels to back on palpation of ribs, sternal chest pain. ). absent: Accessory Muscle Use - Cardiovascular Exam Cardiovascular Exam: REGULAR RHYTHM, +S1, +S2 - GI/Abdominal Exam GI & Abdominal Exam: Normal Bowel Sounds, Soft. absent: Tenderness - Extremities Exam Extremities exam: Positive for: full ROM. Negative for: pedal edema - Back Exam Back exam: FULL ROM, NORMAL INSPECTION. absent: paraspinal tenderness - Neurological Exam Neurological exam: Alert, awake, oriented x3 No slurred speech, no facial droop Decreased left upper and lower extremity sensory Motor 5/5 RLE and RUE, 3/5 LLE - Psychiatric Exam Psychiatric exam: Normal Affect, Normal Mood - Skin Skin Exam: Dry, Intact Assessment and Plan - Assessment and Plan (Free Text) Assessment: Hx of Right sided CVA -Neurology consulted, Dr. 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 Baltazar help appreciated Chest pain -Resolved -Troponin negative x3 -EKG negative for acute ST changes -CTA shows no evidence of PE -LE doppler shows no evidence of DVT -Echo shows estimate EF 46%, mild impaired systolic function -Cardiology consulted, Dr. Muñoz help appreciated -Follow neurology recommendations -Plavix 75 mg -ASA 81 mg DM -Glipizide 10mg po -ISS -Hypoglycemic protocol -Accucheck ACHS Prophylactic measures -Plavix, ASA -GI ppx not indicated -PT/OT Dispo: patient will require home visiting nurse and physical therapy upon discharge
[2017-11-26 07:57] LABS: BASO # 0.1 K/uL (0.0-0.2); BASO % 0.9 % (0.0-2.0); EOS # 0.8 K/uL (0.0-0.7); EOS % 6.7 % (0.0-4.0); LYMPH % 26.1 % (20.0-40.0); MEAN CELL VOLUME 84.7 fL (81.0-99.0); MEAN CORPUSCULAR HEMOGLOBIN 29.9 pg (27.0-31.0); MEAN CORPUSCULAR HGB CONC 35.3 g/dL (33.0-37.0); MEAN PLATELET VOLUME 8.4 fL (7.2-11.7); MONO # 0.7 K/uL (0.0-0.8); MONO % 6.1 % (0.0-10.0); NEUT # 6.9 K/uL (1.8-7.0); NEUT % 60.2 % (50.0-75.0); RBC 4.34 Mil/uL (3.80-5.20); WHITE BLOOD COUNT 11.5 K/uL (4.8-10.8)
[2017-11-26] MEDS: (Novolin R) Insulin Human Regular 100 units/ml vial SC SCH ×4 (08:02→23:00)
[2017-11-26 08:19] LABS: ALB/GLOB RATIO 1.1 (1.0-2.1); ALBUMIN 4.1 g/dL (3.5-5.0); ALT/SGPT 11 U/L (9-52); AST/SGOT 23 U/L (14-36); BLOOD UREA NITROGEN 11 mg/dL (7-17); CALCIUM 9.2 mg/dl (8.6-10.4); GFR AFRICAN-AMERICAN > 60; GFR NON-AFRICAN AMERICAN > 60
--- NOTE | 2017-11-26 10:00 | CP.PCM.PN ---
Subjective - Date & Time of Evaluation Date of Evaluation: 11/26/17 Time of Evaluation: 09:57 - Subjective Subjective: Mr. Gutierrez was seen and examined at the bedside. She is alert, oriented x 3. She denies any headache, lightheadedness, but claims of vision problem which has been going on for a couple months. She remains with left sided weakness including asymmetrical sensation. She is able to follow simple commands and tolerate PO intake. 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 No enhancement is seen in the skullbase/intracranial right ICA segment either. Not necessary discordant with ultrasound carotid arteries. Right anterior and middle MCA collateralized blood flows provided via patent anterior communicating and posterior communicating arteries. Widely patent cervical and skullbase and intracranial left ICA. Widely patent bilateral common carotid arteries. There was no untoward events overnight. Objective - Vital Signs/Intake and Output Vital Signs (last 24 hours): Temp Pulse Resp BP Pulse Ox 98.1 F 69 20 133/88 96 11/26/17 08:18 11/26/17 08:18 11/26/17 08:18 11/26/17 08:18 11/26/17 08:18 Intake and Output: 11/26/17 11/26/17 06:59 18:59 Output Total 300 Balance -300 - Medications Medications: Current Medications Aspirin (Aspirin Chewable) 81 mg PO DAILY [facility] Last Admin: 11/26/17 09:45 Dose: 81 mg Clopidogrel Bisulfate (Plavix) 75 mg PO DAILY [facility] Last Admin: 11/26/17 09:45 Dose: 75 mg Dextrose (Dextrose 50% Inj) 0 ml IV STAT PRN; Protocol PRN Reason: Hypoglycemia Protocol Dextrose (Glutose 15) 0 gm PO ONCE PRN; Protocol PRN Reason: Hypoglycemia Protocol Diltiazem HCl (Cardizem) 240 mg PO DAILY [facility] Last Admin: 11/26/17 09:44 Dose: 240 mg Glipizide (Glucotrol) 10 mg PO DAILY [facility] Glucagon (Glucagen Diagnostic Kit) 0 mg IM STAT PRN; Protocol PRN Reason: Hypoglycemia Protocol Heparin Sodium (Porcine) (Heparin) 5,000 units SC Q8 [facility] Last Admin: 11/26/17 05:25 Dose: 5,000 units Dextrose (Dextrose 5% In Water 1000 Ml) 1,000 mls @ 0 mls/hr IV .Q0M PRN; Protocol; Per Protocol PRN Reason: Hypoglycemia Protocol Sodium Chloride (Sodium Chloride 0.9%) 1,000 mls @ 100 mls/hr IV .Q10H [facility] Insulin Human Regular (Novolin R) 0 unit SC ACHS [facility] PRN Reason: Protocol Last Admin: 11/26/17 08:02 Dose: Not Given Rosuvastatin Calcium (Crestor) 20 mg PO HS [facility] Last Admin: 11/25/17 21:57 Dose: 20 mg - Labs Labs: 11/26/17 07:45 11/26/17 07:45 PT 12.1 SECONDS (9.7-12.2) 11/24/17 13:21 INR 1.1 11/24/17 13:21 APTT 30 SECONDS (21-34) 11/24/17 13:21 - Constitutional Appears: No Acute Distress - Head Exam Head Exam: NORMAL INSPECTION - Eye Exam Pupil Exam: PERRL Additional comments: sluggish 2 mm - Neurological Exam Neurological Exam: Alert, Awake, Oriented x3 Neuro motor strength exam: Left Upper Extremity: 2/1, Right Upper Extremity: 5, Left Lower Extremity: 2/1, Right Lower Extremity: 5 Additional comments: alert, awake, follows commands, asymmetrical sensation with left is less sensitive than the right. Assessment and Plan (1) History of CVA (cerebrovascular accident) Assessment & Plan: Case discussed with Dr. Lama, continue all current medical, physical, occupational, and speech therapies. Recommend neurointerventionalist to evaluate and recommend treatment for right ICA ( Dr. Jae Baltazar is aware). Recommend to keep head of bed elevated, blood pressure, and glycemic control. Status: Chronic
[2017-11-26] MEDS: Sodium Chloride 0.9% 1,000 ML IV SCH ×2 (10:16→20:30)
[2017-11-26 14:54] LABS: SQUAMOUS EPITHIAL < 1 /hpf (0-5); URINE BILIRUBIN NEGATIVE (NEGATIVE); URINE BLOOD NEGATIVE (NEGATIVE); URINE CLARITY Clear (Clear); URINE COLOR Yellow (YELLOW); URINE GLUCOSE (UA) NORMAL (Normal); URINE LEUKOCYTE ESTERASE NEG Leu/uL (Negative); URINE PROTEIN NEGATIVE (NEGATIVE); URINE UROBILINOGEN NORMAL mg/dL (0.2-1.0)
--- NOTE | 2017-11-27 04:43 | CP.PCM.PN ---
<Antwon Fields - Last Filed: 11/27/17 04:44> Subjective - Date & Time of Evaluation Date of Evaluation: 11/27/17 Time of Evaluation: 04:45 - Subjective Subjective: Progress note. Patient seen and examined at bedside. No acute events reported overnight. Patient is resting in bed comfortably. She still complains of no strength on left upper extremity and decreased strength on left lower extremity. She denies fever, chills, shortness of breath, chest pain, nausea, vomiting, diarrhea, or urinary symptoms. Objective - Vital Signs/Intake and Output Vital Signs (last 24 hours): Temp Pulse Resp BP Pulse Ox 97.9 F 56 L 20 165/65 H 96 11/26/17 23:20 11/27/17 01:00 11/26/17 23:20 11/26/17 23:20 11/27/17 01:00 Intake and Output: 11/26/17 11/27/17 18:59 06:59 Intake Total 1100 Output Total 400 Balance 700 - Medications Medications: Current Medications Aspirin (Aspirin Chewable) 81 mg PO DAILY [facility] Last Admin: 11/26/17 09:45 Dose: 81 mg Clopidogrel Bisulfate (Plavix) 75 mg PO DAILY [facility] Last Admin: 11/26/17 09:45 Dose: 75 mg Dextrose (Dextrose 50% Inj) 0 ml IV STAT PRN; Protocol PRN Reason: Hypoglycemia Protocol Dextrose (Glutose 15) 0 gm PO ONCE PRN; Protocol PRN Reason: Hypoglycemia Protocol Diltiazem HCl (Cardizem) 240 mg PO DAILY [facility] Last Admin: 11/26/17 09:44 Dose: 240 mg Glipizide (Glucotrol) 10 mg PO DAILY [facility] Last Admin: 11/26/17 18:26 Dose: 10 mg Glucagon (Glucagen Diagnostic Kit) 0 mg IM STAT PRN; Protocol PRN Reason: Hypoglycemia Protocol Heparin Sodium (Porcine) (Heparin) 5,000 units SC Q8 [facility] Last Admin: 11/26/17 23:00 Dose: 5,000 units Dextrose (Dextrose 5% In Water 1000 Ml) 1,000 mls @ 0 mls/hr IV .Q0M PRN; Protocol; Per Protocol PRN Reason: Hypoglycemia Protocol Sodium Chloride (Sodium Chloride 0.9%) 1,000 mls @ 100 mls/hr IV .Q10H [facility] Last Admin: 11/26/17 20:30 Dose: 100 mls/hr Insulin Human Regular (Novolin R) 0 unit SC ACHS [facility] PRN Reason: Protocol Last Admin: 11/26/17 23:00 Dose: Not Given Rosuvastatin Calcium (Crestor) 20 mg PO HS [facility] Last Admin: 11/26/17 23:00 Dose: 20 mg - Labs Labs: 11/26/17 07:45 11/26/17 07:45 PT 12.1 SECONDS (9.7-12.2) 11/24/17 13:21 INR 1.1 11/24/17 13:21 APTT 30 SECONDS (21-34) 11/24/17 13:21 - Constitutional Appears: Non-toxic, No Acute Distress, Chronically Ill - Head Exam Head Exam: ATRAUMATIC, NORMAL INSPECTION, NORMOCEPHALIC - Eye Exam Eye Exam: EOMI - ENT Exam ENT Exam: Mucous Membranes Moist - Respiratory Exam Respiratory Exam: Chest Wall Tenderness - Cardiovascular Exam Cardiovascular Exam: REGULAR RHYTHM, +S1, +S2 - GI/Abdominal Exam GI & Abdominal Exam: Soft, Normal Bowel Sounds. absent: Tenderness - Extremities Exam Extremities Exam: Full ROM, Normal Inspection - Back Exam Back Exam: NORMAL INSPECTION - Neurological Exam Neurological Exam: Alert, Awake, Oriented x3 Neuro motor strength exam: Left Upper Extremity: 5, Right Upper Extremity: 5, Left Lower Extremity: 3, Right Lower Extremity: 5 - Psychiatric Exam Psychiatric exam: Normal Affect, Normal Mood - Skin Skin Exam: Dry, Intact, Normal Color, Warm Assessment and Plan - Assessment and Plan (Free Text) Assessment: This is a 77 yo female with 1. Hx of Right sided CVA -Neurology consulted, Dr. Lama. recs appreciated -MRI brain shows potential hyperacute lobar infarction right frontal lobe -CT head/neck shows high-grade stenosis >75% at the origin of the right ICA ( see report) -Imaging results discussed with neurology team -Follow up with carotid doppler -Neurointerventionalist consulted, Dr. Baltazar. melchor appreciated 2. Chest pain -Resolved -Troponin negative x3 -EKG negative for acute ST changes -CTA shows no evidence of PE -LE doppler shows no evidence of DVT -Echo shows estimate EF 46%, mild impaired systolic function -Cardiology consulted, Dr. Wanda pfeiffer appreciated -Follow neurology recommendations -Plavix 75 mg po daily -ASA 81 mg po daily 3. hx of DM -Glipizide 10mg po daily -regular ISS -Hypoglycemic protocol -Accucheck ACHS 4. GI/DVT Prophylactic measures -asa 81 mg po daily -plavix 75 mg po daily -GI ppx not indicated -PT/OT Dispo: patient will require home visiting nurse and physical therapy upon discharge <Bj Craig - Last Filed: 11/27/17 12:07> Objective - Vital Signs/Intake and Output Vital Signs (last 24 hours): Temp Pulse Resp BP Pulse Ox 98.2 F 63 20 137/57 L 98 11/27/17 07:40 11/27/17 07:40 11/27/17 07:40 11/27/17 07:40 11/27/17 07:40 Intake and Output: 11/27/17 11/27/17 06:59 18:59 Intake Total 1900 Output Total 700 Balance 1200 - Medications Medications: Current Medications Aspirin (Aspirin Chewable) 81 mg PO DAILY [facility] Last Admin: 11/27/17 10:07 Dose: 81 mg Clopidogrel Bisulfate (Plavix) 75 mg PO DAILY [facility] Last Admin: 11/27/17 10:06 Dose: 75 mg Dextrose (Dextrose 50% Inj) 0 ml IV STAT PRN; Protocol PRN Reason: Hypoglycemia Protocol Dextrose (Glutose 15) 0 gm PO ONCE PRN; Protocol PRN Reason: Hypoglycemia Protocol Diltiazem HCl (Cardizem) 240 mg PO DAILY [facility] Last Admin: 11/27/17 10:07 Dose: 240 mg Glipizide (Glucotrol) 10 mg PO DAILY [facility] Last Admin: 11/27/17 10:09 Dose: 10 mg Glucagon (Glucagen Diagnostic Kit) 0 mg IM STAT PRN; Protocol PRN Reason: Hypoglycemia Protocol Heparin Sodium (Porcine) (Heparin) 5,000 units SC Q8 [facility] Last Admin: 11/27/17 05:32 Dose: 5,000 units Dextrose (Dextrose 5% In Water 1000 Ml) 1,000 mls @ 0 mls/hr IV .Q0M PRN; Protocol; Per Protocol PRN Reason: Hypoglycemia Protocol Sodium Chloride (Sodium Chloride 0.9%) 1,000 mls @ 100 mls/hr IV .Q10H [facility] Last Admin: 11/27/17 05:41 Dose: 100 mls/hr Insulin Human Regular (Novolin R) 0 unit SC [facility] PRN Reason: Protocol Last Admin: 11/27/17 08:00 Dose: Not Given Rosuvastatin Calcium (Crestor) 20 mg PO HS [facility] Last Admin: 11/26/17 23:00 Dose: 20 mg - Labs Labs: 11/27/17 07:20 11/27/17 07:20 PT 12.1 SECONDS (9.7-12.2) 11/24/17 13:21 INR 1.1 11/24/17 13:21 APTT 30 SECONDS (21-34) 11/24/17 13:21 Attending/Attestation - Attestation I have personally seen and examined this patient.: Yes I have fully participated in the care of the patient.: Yes I have reviewed all pertinent clinical information, including history, physical exam and plan: Yes Notes (Text): 11/27/17 11:58 Medical attending: Patient was seen and examined by me. Agree with the above note by the resident The patient's family members were present at bedside and we discussed Patient was confused according to the family. She was awake, and alert and talkative but the family remarked she seemed off. The left body weakness remains at this time. Left upper arm and hand strength is 0/5. 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 Pending if neuro interventionalist can intervene thank you Bj Craig
[2017-11-27] MEDS: Sodium Chloride 0.9% 1,000 ML IV SCH ×2 (05:41→17:39)
[2017-11-27 07:30] LABS: BASO # 0.1 K/uL (0.0-0.2); BASO % 0.6 % (0.0-2.0); EOS # 0.7 K/uL (0.0-0.7); EOS % 6.8 % (0.0-4.0); HEMOGLOBIN 12.4 g/dL (11.0-16.0); LYMPH # 2.7 K/uL (1.0-4.3); LYMPH % 27.2 % (20.0-40.0); MEAN CELL VOLUME 86.1 fL (81.0-99.0); MEAN CORPUSCULAR HEMOGLOBIN 30.1 pg (27.0-31.0); MEAN PLATELET VOLUME 8.6 fL (7.2-11.7); MONO # 0.7 K/uL (0.0-0.8); MONO % 7.1 % (0.0-10.0); NEUT # 5.7 K/uL (1.8-7.0); NEUT % 58.3 % (50.0-75.0); RBC 4.12 Mil/uL (3.80-5.20); RED CELL DISTRIBUTION WIDTH 13.3 % (11.5-14.5); WHITE BLOOD COUNT 9.8 K/uL (4.8-10.8)
[2017-11-27 07:56] LABS: ALB/GLOB RATIO 1.1 (1.0-2.1); ALBUMIN 3.8 g/dL (3.5-5.0); ALT/SGPT 10 U/L (9-52); AST/SGOT 23 U/L (14-36); BLOOD UREA NITROGEN 9 mg/dL (7-17); GFR AFRICAN-AMERICAN > 60; GFR NON-AFRICAN AMERICAN > 60
[2017-11-27] MEDS: (Novolin R) Insulin Human Regular 100 units/ml vial SC SCH ×4 (08:00→21:32)
[2017-11-28] MEDS: Sodium Chloride 0.9% 1,000 ML IV SCH ×4 (01:36→21:47)
[2017-11-28 06:23] LABS: BASO # 0.1 K/uL (0.0-0.2); BASO % 0.6 % (0.0-2.0); EOS # 0.8 K/uL (0.0-0.7); EOS % 7.3 % (0.0-4.0); HEMOGLOBIN 12.3 g/dL (11.0-16.0); LYMPH # 2.9 K/uL (1.0-4.3); LYMPH % 26.1 % (20.0-40.0); MEAN CELL VOLUME 85.2 fL (81.0-99.0); MEAN CORPUSCULAR HEMOGLOBIN 30.2 pg (27.0-31.0); MEAN CORPUSCULAR HGB CONC 35.4 g/dL (33.0-37.0); MEAN PLATELET VOLUME 8.4 fL (7.2-11.7); MONO # 0.7 K/uL (0.0-0.8); MONO % 6.3 % (0.0-10.0); NEUT # 6.5 K/uL (1.8-7.0); NEUT % 59.7 % (50.0-75.0); RBC 4.07 Mil/uL (3.80-5.20); WHITE BLOOD COUNT 10.9 K/uL (4.8-10.8)
[2017-11-28 06:41] LABS: ALB/GLOB RATIO 1.2 (1.0-2.1); ALT/SGPT 11 U/L (9-52); AST/SGOT 24 U/L (14-36); BLOOD UREA NITROGEN 6 mg/dL (7-17); CALCIUM 8.9 mg/dl (8.6-10.4); GFR AFRICAN-AMERICAN > 60; GFR NON-AFRICAN AMERICAN > 60
[2017-11-28] MEDS: (Novolin R) Insulin Human Regular 100 units/ml vial SC SCH ×4 (08:06→21:47)
--- NOTE | 2017-11-28 09:42 | VASCLAB ---
PROCEDURE: HISTORY: CVA and left weakness COMPARISON: None available. TECHNIQUE: Grayscale and duplex Doppler evaluation of the cervical carotid and vertebral arteries were performed. The common carotid, carotid bifurcations and cervical Internal Carotid Artery (ICA) and proximal External Carotid Artery (ECA) were evaluated. The vertebral arteries were evaluated for gross patency and flow direction. Report prepared by SITA Malcolm FINDINGS: RIGHT CAROTID ARTERIES: 1. Common Carotid Artery: Moderate plaque formation of the right CCA which does not result in hemodynamically significant stenosis. Maximum Peak Systolic velocity: 62.5 cm/sec: End-diastolic velocity 0 cm/sec. 2. Carotid Bifurcation: Heterogeneous and calcified plaque formation. Maximum Peak Systolic velocity: 59.9 cm/sec: End-diastolic velocity 0 cm/sec. 3. Internal Carotid Artery: Severe plaque formation of the left ICA. Plaque description: Heterogeneous and calcified 3.1. Proximal Segment: Peak systolic velocity 41.9 cm/sec: End-diastolic velocity 0 cm/sec - % stenosis 3.2. Middle Segment: Peak systolic velocity 24.8 cm/sec: End-diastolic velocity 0 cm/sec - % stenosis 3.3. Distal Segment: Peak systolic velocity 15.7 cm/sec: End-diastolic velocity 0 cm/sec - % stenosis 4. External Carotid Artery: Mild plaque formation of the right proximal ECA which results in a hemodynamically significant stenosis. Peak systolic velocity 194.9 cm/sec 5. ICA/CCA Ratio: 1.0 LEFT CAROTID ARTERIES: 1. Common Carotid Artery: Moderate plaque formation of the left CCA which does not result in hemodynamically significant stenosis. Maximum Peak Systolic velocity: 68.0 cm/sec: End-diastolic velocity 17.5 cm/sec. 2. Carotid Bifurcation: Heterogeneous and calcified plaque formation. Maximum Peak Systolic velocity: 79.0 cm/sec: End-diastolic velocity 20.8 cm/sec. 3. Internal Carotid Artery: Moderate plaque formation of the left proximal ICA which results in a hemodynamically significant stenosis. Plaque description: Heterogeneous and calcified 3.1. Proximal Segment: Peak systolic velocity 194.8 cm/sec: End-diastolic velocity 83.3 cm/sec - % stenosis 60-70% 3.2. Middle Segment: Peak systolic velocity 88.9 cm/sec: End-diastolic velocity 22.8 cm/sec - % stenosis 0-15% 3.3. Distal Segment: Peak systolic velocity 76.6 cm/sec: End-diastolic velocity 20.8 cm/sec - % stenosis 0-15% 4. External Carotid Artery: Moderate plaque formation of the right proximal ECA which results in hemodynamically significant stenosis. Peak systolic velocity 175.8 cm/sec 5. ICA/CCA Ratio: 3.5 VERTEBRAL ARTERIES: 1. Right Vertebral Artery: The right vertebral artery flow direction is antegrade. 2. Left Vertebral Artery: The left vertebral artery flow direction is antegrade. OTHER FINDINGS: 1. Blip like flow noted in the ICA suggestive of ICA occlusion. Further testing recommended for correlation. 2. Left Brachial Blood pressure: mmHg. IMPRESSION: RIGHT: Duplex scan suggest possible Internal Carotid Artery occlusion. Further testing recommended for correlation. LEFT: Duplex scan suggest hemodynamically significant stenosis of the left Internal Carotid Artery
--- NOTE | 2017-11-28 12:14 | CP.PCM.PN ---
Subjective - Date & Time of Evaluation Date of Evaluation: 11/28/17 Time of Evaluation: 12:00 - Subjective Subjective: Occlusion of internal carotid with reconstitution at the level of the [place], echo with mildly depressed left ventricular contractility, expected with diabetes, no DE. Needs to change diltiazem to MILLY inhibitor and beta ramonita of your choice Objective - Vital Signs/Intake and Output Vital Signs (last 24 hours): Temp Pulse Resp BP Pulse Ox 98.2 F 62 20 138/63 96 11/28/17 09:00 11/28/17 09:00 11/28/17 09:00 11/28/17 09:00 11/28/17 09:00 Intake and Output: 11/28/17 11/28/17 06:59 18:59 Intake Total 500 Output Total 1200 Balance -700 - Medications Medications: Current Medications Aspirin (Aspirin Chewable) 81 mg PO DAILY [facility] Last Admin: 11/28/17 09:31 Dose: 81 mg Clopidogrel Bisulfate (Plavix) 75 mg PO DAILY [facility] Last Admin: 11/28/17 09:31 Dose: 75 mg Dextrose (Dextrose 50% Inj) 0 ml IV STAT PRN; Protocol PRN Reason: Hypoglycemia Protocol Dextrose (Glutose 15) 0 gm PO ONCE PRN; Protocol PRN Reason: Hypoglycemia Protocol Diltiazem HCl (Cardizem) 240 mg PO DAILY [facility] Last Admin: 11/28/17 09:31 Dose: 240 mg Glipizide (Glucotrol) 10 mg PO DAILY [facility] Last Admin: 11/28/17 09:33 Dose: 10 mg Glucagon (Glucagen Diagnostic Kit) 0 mg IM STAT PRN; Protocol PRN Reason: Hypoglycemia Protocol Heparin Sodium (Porcine) (Heparin) 5,000 units SC Q12 [facility] Last Admin: 11/28/17 11:30 Dose: 5,000 units Dextrose (Dextrose 5% In Water 1000 Ml) 1,000 mls @ 0 mls/hr IV .Q0M PRN; Protocol; Per Protocol PRN Reason: Hypoglycemia Protocol Sodium Chloride (Sodium Chloride 0.9%) 1,000 mls @ 100 mls/hr IV .Q10H [facility] Last Admin: 11/28/17 11:00 Dose: Not Given Insulin Human Regular (Novolin R) 0 unit SC ACHS [facility] PRN Reason: Protocol Last Admin: 11/28/17 08:06 Dose: 2 unit Pneumococcal Polyvalent Vaccine (Pneumovax 23 Vaccine) 0.5 ml IM .ONCE ONE Stop: 11/29/17 10:01 Rosuvastatin Calcium (Crestor) 20 mg PO HS [facility] Last Admin: 11/27/17 21:33 Dose: 20 mg - Labs Labs: 11/28/17 06:16 11/28/17 06:16 PT 12.1 SECONDS (9.7-12.2) 11/24/17 13:21 INR 1.1 11/24/17 13:21 APTT 30 SECONDS (21-34) 11/24/17 13:21 - Constitutional Appears: Non-toxic - Head Exam Head Exam: ATRAUMATIC - Eye Exam Eye Exam: EOMI - ENT Exam ENT Exam: Mucous Membranes Moist - Neck Exam Neck Exam: absent: Lymphadenopathy, Thyromegaly - Respiratory Exam Respiratory Exam: Clear to Ausculation Bilateral. absent: Rales - Cardiovascular Exam Cardiovascular Exam: REGULAR RHYTHM, Murmur - GI/Abdominal Exam GI & Abdominal Exam: Normal Bowel Sounds. absent: Organomegaly - Rectal Exam Rectal Exam: Deferred - Extremities Exam Extremities Exam: Normal Capillary Refill. absent: Calf Tenderness - Neurological Exam Neurological Exam: Alert, Oriented x3 - Psychiatric Exam Psychiatric exam: Normal Mood - Skin Skin Exam: Dry Assessment and Plan (1) Chest pain Status: Acute (2) History of CVA (cerebrovascular accident) Status: Chronic (3) Diabetes mellitus Status: Chronic (4) History of percutaneous coronary intervention Status: Chronic
--- NOTE | 2017-11-28 13:57 | CP.PCM.PN ---
<IselaNeli - Last Filed: 11/28/17 13:57> Subjective - Date & Time of Evaluation Date of Evaluation: 11/28/17 Time of Evaluation: 14:13 - Subjective Subjective: Progress Note Patient seen and examined at bedside. No acute events overnight. Patient states she feels a little better but expresses some frustration since she use to write with her left hand and her left arm and hand are not mobile. Objective - Vital Signs/Intake and Output Vital Signs (last 24 hours): Temp Pulse Resp BP Pulse Ox 98.2 F 62 20 138/63 96 11/28/17 09:00 11/28/17 09:00 11/28/17 09:00 11/28/17 09:00 11/28/17 09:00 Intake and Output: 11/28/17 11/28/17 06:59 18:59 Intake Total 500 Output Total 1200 Balance -700 - Medications Medications: Current Medications Aspirin (Aspirin Chewable) 81 mg PO DAILY [facility] Last Admin: 11/28/17 09:31 Dose: 81 mg Clopidogrel Bisulfate (Plavix) 75 mg PO DAILY [facility] Last Admin: 11/28/17 09:31 Dose: 75 mg Dextrose (Dextrose 50% Inj) 0 ml IV STAT PRN; Protocol PRN Reason: Hypoglycemia Protocol Dextrose (Glutose 15) 0 gm PO ONCE PRN; Protocol PRN Reason: Hypoglycemia Protocol Diltiazem HCl (Cardizem) 240 mg PO DAILY [facility] Last Admin: 11/28/17 09:31 Dose: 240 mg Glipizide (Glucotrol) 10 mg PO DAILY [facility] Last Admin: 11/28/17 09:33 Dose: 10 mg Glucagon (Glucagen Diagnostic Kit) 0 mg IM STAT PRN; Protocol PRN Reason: Hypoglycemia Protocol Heparin Sodium (Porcine) (Heparin) 5,000 units SC Q12 [facility] Last Admin: 11/28/17 11:30 Dose: 5,000 units Dextrose (Dextrose 5% In Water 1000 Ml) 1,000 mls @ 0 mls/hr IV .Q0M PRN; Protocol; Per Protocol PRN Reason: Hypoglycemia Protocol Sodium Chloride (Sodium Chloride 0.9%) 1,000 mls @ 100 mls/hr IV .Q10H [facility] Last Admin: 11/28/17 12:30 Dose: 100 mls/hr Insulin Human Regular (Novolin R) 0 unit SC ACHS [facility] PRN Reason: Protocol Last Admin: 11/28/17 12:25 Dose: Not Given Pneumococcal Polyvalent Vaccine (Pneumovax 23 Vaccine) 0.5 ml IM .ONCE ONE Stop: 11/29/17 10:01 Rosuvastatin Calcium (Crestor) 20 mg PO [facility] Last Admin: 11/27/17 21:33 Dose: 20 mg - Labs Labs: 11/28/17 06:16 11/28/17 06:16 PT 12.1 SECONDS (9.7-12.2) 11/24/17 13:21 INR 1.1 11/24/17 13:21 APTT 30 SECONDS (21-34) 11/24/17 13:21 - Additional Findings Additional findings: - Constitutional Appears: Non-toxic, No Acute Distress, Chronically Ill - Head Exam Head Exam: NORMAL INSPECTION, NORMOCEPHALIC - Eye Exam Eye Exam: EOMI, Normal appearance Pupil Exam: NORMAL ACCOMODATION, PERRL - ENT Exam ENT Exam: Mucous Membranes Moist, Normal Exam - Neck Exam Neck exam: Positive for: Full Rom, Normal Inspection - Respiratory Exam Respiratory Exam: Chest Wall Tenderness (right side that travels to back on palpation of ribs, sternal chest pain. ). absent: Accessory Muscle Use - Cardiovascular Exam Cardiovascular Exam: REGULAR RHYTHM, +S1, +S2 - GI/Abdominal Exam GI & Abdominal Exam: Normal Bowel Sounds, Soft. absent: Tenderness - Extremities Exam Extremities exam: Positive for: full ROM. Negative for: pedal edema - Back Exam Back exam: FULL ROM, NORMAL INSPECTION. absent: paraspinal tenderness - Neurological Exam Neurological exam: Alert Additional comments: Patient has 3/5 muscle strength of left lower extremity Patient has 5/5 muscle strength of right lower extremity Patient has 0/5 muscle strength of right upper extremity Patient's left upper extremity is kept in a sling like position unless lifted by patients own right upper extremity. Patient states no sensation of left lower extremity - Psychiatric Exam Psychiatric exam: Normal Affect, Normal Mood Assessment and Plan - Assessment and Plan (Free Text) Assessment: This is a 77 yo female with 1. Hx of Right sided CVA -Neurology consulted, Dr. Lama. 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 -f/u up Neurointerventionalist consulted, Dr. Baltazar 2. Chest pain -Resolved -Troponin negative x3 -EKG negative for acute ST changes -CTA shows no evidence of PE -LE doppler shows no evidence of DVT -Echo shows estimate EF 46%, mild impaired systolic function -Cardiology consulted, Dr. Muñoz -Follow neurology recommendations -Plavix 75 mg po daily -ASA 81 mg po daily 3. hx of DM -Glipizide 10mg po daily -regular ISS -Hypoglycemic protocol -Accucheck ACHS 4. GI/DVT Prophylactic measures -asa 81 mg po daily -plavix 75 mg po daily -GI ppx not indicated -PT/OT Dispo: patient will require home visiting nurse and physical therapy upon discharge f/u Neurointerventionalist Dr. Baltazar's recommendation discusssed with Dr. Kiara Weiss, DO PGY1 <Bj Craig - Last Filed: 11/28/17 16:06> Objective - Vital Signs/Intake and Output Vital Signs (last 24 hours): Temp Pulse Resp BP Pulse Ox 98.2 F 68 20 138/63 96 11/28/17 09:00 11/28/17 12:00 11/28/17 09:00 11/28/17 09:00 11/28/17 09:00 Intake and Output: 11/28/17 11/28/17 06:59 18:59 Intake Total 500 Output Total 1200 Balance -700 - Medications Medications: Current Medications Aspirin (Aspirin Chewable) 81 mg PO DAILY [facility] Last Admin: 11/28/17 09:31 Dose: 81 mg Clopidogrel Bisulfate (Plavix) 75 mg PO DAILY [facility] Last Admin: 11/28/17 09:31 Dose: 75 mg Dextrose (Dextrose 50% Inj) 0 ml IV STAT PRN; Protocol PRN Reason: Hypoglycemia Protocol Dextrose (Glutose 15) 0 gm PO ONCE PRN; Protocol PRN Reason: Hypoglycemia Protocol Diltiazem HCl (Cardizem) 240 mg PO DAILY [facility] Last Admin: 11/28/17 09:31 Dose: 240 mg Glipizide (Glucotrol) 10 mg PO DAILY [facility] Last Admin: 11/28/17 09:33 Dose: 10 mg Glucagon (Glucagen Diagnostic Kit) 0 mg IM STAT PRN; Protocol PRN Reason: Hypoglycemia Protocol Heparin Sodium (Porcine) (Heparin) 5,000 units SC Q12 [facility] Last Admin: 11/28/17 11:30 Dose: 5,000 units Dextrose (Dextrose 5% In Water 1000 Ml) 1,000 mls @ 0 mls/hr IV .Q0M PRN; Protocol; Per Protocol PRN Reason: Hypoglycemia Protocol Sodium Chloride (Sodium Chloride 0.9%) 1,000 mls @ 100 mls/hr IV .Q10H [facility] Last Admin: 11/28/17 12:30 Dose: 100 mls/hr Insulin Human Regular (Novolin R) 0 unit SC ACHS [facility] PRN Reason: Protocol Last Admin: 11/28/17 12:25 Dose: Not Given Pneumococcal Polyvalent Vaccine (Pneumovax 23 Vaccine) 0.5 ml IM .ONCE ONE Stop: 11/29/17 10:01 Rosuvastatin Calcium (Crestor) 20 mg PO HS [facility] Last Admin: 11/27/17 21:33 Dose: 20 mg - Labs Labs: 11/28/17 06:16 11/28/17 06:16 PT 12.1 SECONDS (9.7-12.2) 11/24/17 13:21 INR 1.1 11/24/17 13:21 APTT 30 SECONDS (21-34) 11/24/17 13:21 Attending/Attestation - Attestation I have personally seen and examined this patient.: Yes I have fully participated in the care of the patient.: Yes I have reviewed all pertinent clinical information, including history, physical exam and plan: Yes Notes (Text): 11/28/17 16:06 Medical Attending: Patient was seen and examined by me, agree with the above note by medical collector. I reviewed the above note by medical collector and for the most part agree, however there appears to be some areas of the neuro exam which were different I also examined as well. I will address this tomorrow When we saw her we had not yet had a decision if neuro interventional would be able to get in there for her right carotid area stenosis. Monitor the patient, possibly the patient can benefit from a carotid endarterectomy In the meantime she continues with PT/OT. She was frustrated by the ongoing weakness of her left arm, left hand, as well as her left lower extremity. She was fully conversant with us, pleasant affect. Family members was present at bedside as well Thank you very much, Bj Craig
--- NOTE | 2017-11-28 14:06 | CP.PCM.CON ---
History of Present Illness - History of Present Illness History of Present Illness: NEURO-INTERVENTIONAL CONSULTATION The patient is a 77 year old female with multiple vascular risk factors including DM 2. who suffered a right hemispheric anterior circulation infarct as likely result of a right ICA acute occlusion. Ultrasound shows high grade stenosis, with CTA showing distal to that occlusion. The right MARS and MCA appear to be filling via centralization across an acomm. There is no severe contralateral ICA stenosis. Review of Systems - Constitutional Constitutional: As Per HPI - EENT Eyes: As Per HPI - Musculoskeletal Musculoskeletal: As Per HPI - Neurological Neurological: As Per HPI Past Patient History - Past Social History Smoking Status: Never Smoked - CARDIAC Hx Cardiac Disorders: Yes Hx Hypercholesterolemia: Yes Hx Hypertension: Yes - NEUROLOGICAL HX Cerebrovascular Accident: Yes (left side weakness) - ENDOCRINE/METABOLIC Hx Diabetes Mellitus Type 2: Yes - MUSCULOSKELETAL/RHEUMATOLOGICAL Hx Falls: No - PSYCHIATRIC Hx Substance Use: No - SURGICAL HISTORY Hx Coronary Artery Bypass Graft: Yes Hx Coronary Stent: Yes Meds Allergies/Adverse Reactions: Allergies Allergy/AdvReac Type Severity Reaction Status Date / Time No Known Allergies Allergy Verified 05/01/14 12:49 - Medications Medications: Current Medications Aspirin (Aspirin Chewable) 81 mg PO DAILY [facility] Last Admin: 11/28/17 09:31 Dose: 81 mg Clopidogrel Bisulfate (Plavix) 75 mg PO DAILY [facility] Last Admin: 11/28/17 09:31 Dose: 75 mg Dextrose (Dextrose 50% Inj) 0 ml IV STAT PRN; Protocol PRN Reason: Hypoglycemia Protocol Dextrose (Glutose 15) 0 gm PO ONCE PRN; Protocol PRN Reason: Hypoglycemia Protocol Diltiazem HCl (Cardizem) 240 mg PO DAILY [facility] Last Admin: 11/28/17 09:31 Dose: 240 mg Glipizide (Glucotrol) 10 mg PO DAILY [facility] Last Admin: 11/28/17 09:33 Dose: 10 mg Glucagon (Glucagen Diagnostic Kit) 0 mg IM STAT PRN; Protocol PRN Reason: Hypoglycemia Protocol Heparin Sodium (Porcine) (Heparin) 5,000 units SC Q12 [facility] Last Admin: 11/28/17 11:30 Dose: 5,000 units Dextrose (Dextrose 5% In Water 1000 Ml) 1,000 mls @ 0 mls/hr IV .Q0M PRN; Protocol; Per Protocol PRN Reason: Hypoglycemia Protocol Sodium Chloride (Sodium Chloride 0.9%) 1,000 mls @ 100 mls/hr IV .Q10H [facility] Last Admin: 11/28/17 12:30 Dose: 100 mls/hr Insulin Human Regular (Novolin R) 0 unit SC ACHS [facility] PRN Reason: Protocol Last Admin: 11/28/17 12:25 Dose: Not Given Pneumococcal Polyvalent Vaccine (Pneumovax 23 Vaccine) 0.5 ml IM .ONCE ONE Stop: 11/29/17 10:01 Rosuvastatin Calcium (Crestor) 20 mg PO [facility] Last Admin: 11/27/17 21:33 Dose: 20 mg Physical Exam - Neurological Exam Additional comments: NEURO EXAM AOx3 PERRL, EOMI No facial droop No dysarthria No aphasia Left UE 0/5 Left LE 2/5 with proximal stronger than distal full strength on right. Results - Vital Signs Recent Vital Signs: Last Vital Signs Temp 98.2 F 11/28/17 09:00 Pulse 62 11/28/17 09:00 Resp 20 11/28/17 09:00 BP 138/63 11/28/17 09:00 Pulse Ox 96 11/28/17 09:00 - Labs Result Diagrams: 11/28/17 06:16 11/28/17 06:16 Labs: Laboratory Results - last 24 hr 11/27/17 11/27/17 11/28/17 16:59 21:11 06:16 WBC 10.9 H RBC 4.07 Hgb 12.3 Hct 34.7 MCV 85.2 MCH 30.2 MCHC 35.4 RDW 13.0 Plt Count 244 MPV 8.4 Neut % (Auto) 59.7 Lymph % (Auto) 26.1 [place] % (Auto) 6.3 Eos % (Auto) 7.3 H Baso % (Auto) 0.6 Neut # (Auto) 6.5 Lymph # (Auto) 2.9 [place] # (Auto) 0.7 Eos # (Auto) 0.8 H Baso # (Auto) 0.1 Sodium Potassium Chloride Carbon Dioxide Anion Gap BUN Creatinine Est GFR ( Amer) Est GFR (Non-Af Amer) POC Glucose (mg/dL) 151 H 126 H Random Glucose Calcium Phosphorus Magnesium Total Bilirubin AST ALT Alkaline Phosphatase Total Protein Albumin Globulin Albumin/Globulin Ratio 11/28/17 11/28/17 11/28/17 06:16 06:21 11:48 WBC RBC Hgb Hct MCV MCH MCHC RDW Plt Count MPV Neut % (Auto) Lymph % (Auto) [place] % (Auto) Eos % (Auto) Baso % (Auto) Neut # (Auto) Lymph # (Auto) [place] # (Auto) Eos # (Auto) Baso # (Auto) Sodium 142 Potassium 3.9 Chloride 103 Carbon Dioxide 28 Anion Gap 15 BUN 6 L Creatinine 0.7 Est GFR ( Amer) > 60 Est GFR (Non-Af Amer) > 60 POC Glucose (mg/dL) 162 H 111 H Random Glucose 162 H Calcium 8.9 Phosphorus 3.1 Magnesium 1.7 Total Bilirubin 0.4 AST 24 ALT 11 Alkaline Phosphatase 71 Total Protein 7.3 Albumin 4.0 Globulin 3.4 Albumin/Globulin Ratio 1.2 Assessment & Plan - Assessment and Plan (Free Text) Assessment: 77 year old female with a symptomatic right ICA intracranial occlusion. Plan: 1-given that there is no flow in the right ICA contributing to the intra- cranial circulation, there is no current indication for revascularization. 2-Recommend medical therapy as per the Neurology service, agree with dual anti- platelets and high dose statin. - Date & Time Date: 11/28/17 Time: 14:06
--- NOTE | 2017-11-28 14:30 | CARD ---
APPROVED REPORT EKG Measurement Heart [id number] <Conclusion> Normal sinus rhythm ST & T wave abnormality, consider lateral ischemia Abnormal ECG
--- NOTE | 2017-11-28 14:36 | CARD ---
APPROVED REPORT EKG Measurement Heart [id number] <Conclusion> Normal sinus rhythm ST & T wave abnormality, consider lateral ischemia Abnormal ECG
[2017-11-29] MEDS: (Novolin R) Insulin Human Regular 100 units/ml vial SC SCH ×4 (07:31→22:19)
[2017-11-29 07:42] LABS: BASO # 0.1 K/uL (0.0-0.2); BASO % 0.7 % (0.0-2.0); EOS # 0.7 K/uL (0.0-0.7); EOS % 7.3 % (0.0-4.0); HEMOGLOBIN 12.6 g/dL (11.0-16.0); LYMPH # 2.3 K/uL (1.0-4.3); LYMPH % 22.9 % (20.0-40.0); MEAN CELL VOLUME 85.4 fL (81.0-99.0); MEAN CORPUSCULAR HEMOGLOBIN 30.3 pg (27.0-31.0); MEAN CORPUSCULAR HGB CONC 35.5 g/dL (33.0-37.0); MEAN PLATELET VOLUME 8.5 fL (7.2-11.7); MONO # 0.6 K/uL (0.0-0.8); MONO % 6.3 % (0.0-10.0); NEUT # 6.2 K/uL (1.8-7.0); NEUT % 62.8 % (50.0-75.0); RBC 4.15 Mil/uL (3.80-5.20); WHITE BLOOD COUNT 9.9 K/uL (4.8-10.8)
[2017-11-29 08:10] LABS: ALB/GLOB RATIO 1.2 (1.0-2.1); ALBUMIN 3.9 g/dL (3.5-5.0); ALT/SGPT 15 U/L (9-52); AST/SGOT 31 U/L (14-36); BLOOD UREA NITROGEN 6 mg/dL (7-17); CALCIUM 9.2 mg/dl (8.6-10.4); GFR AFRICAN-AMERICAN > 60; GFR NON-AFRICAN AMERICAN > 60
--- NOTE | 2017-11-29 08:57 | CP.PCM.PN ---
Subjective - Date & Time of Evaluation Date of Evaluation: 11/29/17 Time of Evaluation: 08:57 - Subjective Subjective: Ms. Gutierrez was seen and examined at the bedside. She is alert, oriented x 3. She denies any lightheadedness,blurred vision, photophobia, phonophobia, nausea , or vomiting. but claims of vision problem which has been going on for a couple months.She complains of headache in the occipital area with pain scale 2/ 10, non-radiating. She remains with left sided weakness including asymmetrical sensation. She is able to follow simple commands and tolerate PO intake. There was no untoward events overnight. Objective - Vital Signs/Intake and Output Vital Signs (last 24 hours): Temp Pulse Resp BP Pulse Ox 98.6 F 72 20 164/68 H 97 11/29/17 07:10 11/29/17 07:49 11/29/17 07:10 11/29/17 07:10 11/29/17 07:10 Intake and Output: 11/29/17 11/29/17 06:59 18:59 Intake Total 2050 Output Total 1375 Balance 675 - Medications Medications: Current Medications Aspirin (Aspirin Chewable) 81 mg PO DAILY [facility] Last Admin: 11/28/17 09:31 Dose: 81 mg Clopidogrel Bisulfate (Plavix) 75 mg PO DAILY [facility] Last Admin: 11/28/17 09:31 Dose: 75 mg Dextrose (Dextrose 50% Inj) 0 ml IV STAT PRN; Protocol PRN Reason: Hypoglycemia Protocol Dextrose (Glutose 15) 0 gm PO ONCE PRN; Protocol PRN Reason: Hypoglycemia Protocol Diltiazem HCl (Cardizem) 240 mg PO DAILY [facility] Last Admin: 11/28/17 09:31 Dose: 240 mg Glipizide (Glucotrol) 10 mg PO DAILY [facility] Last Admin: 11/28/17 09:33 Dose: 10 mg Glucagon (Glucagen Diagnostic Kit) 0 mg IM STAT PRN; Protocol PRN Reason: Hypoglycemia Protocol Heparin Sodium (Porcine) (Heparin) 5,000 units SC Q12 [facility] Last Admin: 11/28/17 22:27 Dose: 5,000 units Dextrose (Dextrose 5% In Water 1000 Ml) 1,000 mls @ 0 mls/hr IV .Q0M PRN; Protocol; Per Protocol PRN Reason: Hypoglycemia Protocol Sodium Chloride (Sodium Chloride 0.9%) 1,000 mls @ 100 mls/hr IV .Q10H [facility] Last Admin: 11/28/17 21:47 Dose: Not Given Insulin Human Regular (Novolin R) 0 unit SC ACHS [facility] PRN Reason: Protocol Last Admin: 11/29/17 07:31 Dose: Not Given Magnesium Oxide (Mag-Ox) 400 mg PO BID [facility] Pneumococcal Polyvalent Vaccine (Pneumovax 23 Vaccine) 0.5 ml IM .ONCE ONE Stop: 11/29/17 10:01 Rosuvastatin Calcium (Crestor) 20 mg PO HS [facility] Last Admin: 11/28/17 22:27 Dose: 20 mg - Labs Labs: 11/29/17 07:23 11/29/17 07:23 PT 12.1 SECONDS (9.7-12.2) 11/24/17 13:21 INR 1.1 11/24/17 13:21 APTT 30 SECONDS (21-34) 11/24/17 13:21 - Constitutional Appears: No Acute Distress - Head Exam Head Exam: NORMAL INSPECTION - Eye Exam Pupil Exam: PERRL - Neurological Exam Neurological Exam: Alert, Awake, Oriented x3 Neuro motor strength exam: Left Upper Extremity: 2/1, Right Upper Extremity: 5, Left Lower Extremity: 3, Right Lower Extremity: 3 Additional comments: Neurological unchanged from previous examination. Assessment and Plan (1) History of CVA (cerebrovascular accident) Assessment & Plan: Case discussed with Dr. Juan, continue all current medical, physical, occupational therapies. Recommend magnesium oxide 400 mg PO BID, if the headache persist to severe kindly repeat CT of the head without contrast. Recommend head of the head elevated at least 30 degrees, normotensive, and glycemic control. Status: Chronic
[2017-11-29] MEDS: Magnesium Oxide 400 mg Tab UD PO SCH ×2 (09:19→19:00)
[2017-11-29] MEDS ORDERED: Pneumococcal 23-Valent Vaccine IM ONE (10:00)
--- NOTE | 2017-11-29 14:56 | CP.PCM.CON ---
History of Present Illness - History of Present Illness History of Present Illness: Vascular Surgery- Dr. Wilson (covering for Dr. Slade) Reason for Consult: Carotid Stenosis 77F w/ pmhx signficaint for DM, CAD s/p VT w/ stent x2, TIA and CVA in [place] within the last 4 years presents to [facility] w/ Shortness of breath and left sided weakness. Grandson at bedside providing history. Code Stroke was called. After work up w/ US and CTA of head and neck shows Right carotid stenosis and surgery was consulted. Patient states having left sided weakness for > 3 weeks. Patient recently came from [place] one week ago and is living with family. Family was concerned and subsequently brought her to the ER. Currently has continued weakness in Left upper and lower extremities. Denies: fevers, chills, nausea, vomiting, diarrhea, difficulty swallowing, facial paralysis. PMH: stated above. CVA x2 PSH: cornary stents (2 years ago) ALL: NKDA Socialhx: no tobacco, etoh, recreational drug use FH: non-contributory 12 pt review of system conducted, negative otherwise noted above PMD: Dr. Wu Review of Systems - Review of Systems All systems: reviewed and no additional remarkable complaints except - Constitutional Constitutional: As Per HPI Past Patient History - Past Social History Smoking Status: Never Smoked - CARDIAC Hx Cardiac Disorders: Yes Hx Hypercholesterolemia: Yes Hx Hypertension: Yes - NEUROLOGICAL HX Cerebrovascular Accident: Yes (left side weakness) - ENDOCRINE/METABOLIC Hx Diabetes Mellitus Type 2: Yes - MUSCULOSKELETAL/RHEUMATOLOGICAL Hx Falls: No - PSYCHIATRIC Hx Substance Use: No - SURGICAL HISTORY Hx Coronary Artery Bypass Graft: Yes Hx Coronary Stent: Yes Meds Allergies/Adverse Reactions: Allergies Allergy/AdvReac Type Severity Reaction Status Date / Time No Known Allergies Allergy Verified 05/01/14 12:49 - Medications Medications: Current Medications Aspirin (Aspirin Chewable) 81 mg PO DAILY [facility] Last Admin: 11/29/17 09:19 Dose: 81 mg Carvedilol (Coreg) 3.125 mg PO BID [facility] Last Admin: 11/29/17 11:53 Dose: 3.125 mg Clopidogrel Bisulfate (Plavix) 75 mg PO DAILY [facility] Last Admin: 11/29/17 09:19 Dose: 75 mg Dextrose (Dextrose 50% Inj) 0 ml IV STAT PRN; Protocol PRN Reason: Hypoglycemia Protocol Dextrose (Glutose 15) 0 gm PO ONCE PRN; Protocol PRN Reason: Hypoglycemia Protocol Diltiazem HCl (Cardizem) 240 mg PO DAILY [facility] Last Admin: 11/29/17 09:20 Dose: 240 mg Glipizide (Glucotrol) 10 mg PO DAILY [facility] Last Admin: 11/29/17 09:23 Dose: 10 mg Glucagon (Glucagen Diagnostic Kit) 0 mg IM STAT PRN; Protocol PRN Reason: Hypoglycemia Protocol Heparin Sodium (Porcine) (Heparin) 5,000 units SC Q12 [facility] Last Admin: 11/29/17 09:20 Dose: 5,000 units Dextrose (Dextrose 5% In Water 1000 Ml) 1,000 mls @ 0 mls/hr IV .Q0M PRN; Protocol; Per Protocol PRN Reason: Hypoglycemia Protocol Insulin Human Regular (Novolin R) 0 unit SC ACHS [facility] PRN Reason: Protocol Last Admin: 11/29/17 12:01 Dose: Not Given Lisinopril (Zestril) 5 mg PO DAILY [facility] Last Admin: 11/29/17 11:53 Dose: 5 mg Magnesium Oxide (Mag-Ox) 400 mg PO BID [facility] Last Admin: 11/29/17 09:19 Dose: 400 mg Rosuvastatin Calcium (Crestor) 20 mg PO HS [facility] Last Admin: 11/28/17 22:27 Dose: 20 mg Physical Exam - Constitutional Appears: Non-toxic, No Acute Distress - Head Exam Head Exam: ATRAUMATIC Additional comments: CN II-XII intact - Eye Exam Eye Exam: EOMI - ENT Exam ENT Exam: Mucous Membranes Moist - Neck Exam Neck exam: Negative for: Lymphadenopathy - Respiratory Exam Respiratory Exam: NORMAL BREATHING PATTERN. absent: Accessory Muscle Use, Rales , Rhonchi, Wheezes, Respiratory Distress - Cardiovascular Exam Cardiovascular Exam: +S1, +S2. absent: Bradycardia, Tachycardia Additional comments: No carotid bruit noted on ascultation - GI/Abdominal Exam GI & Abdominal Exam: Soft. absent: Distended, Firm, Guarding, Rigid, Tenderness - Extremities Exam Additional comments: LUE 0/5 muscle strength LLE 0/5 muscle strength passive ROM, no muscle rigidity 5/5 muscle strength Right U and LE - Neurological Exam Neurological exam: Alert, CN II-XII Intact, Oriented x3 - Psychiatric Exam Psychiatric exam: Normal Affect - Skin Skin Exam: Intact, Warm Results - Vital Signs Recent Vital Signs: Last Vital Signs Temp 98.6 F 11/29/17 07:10 Pulse 72 11/29/17 07:49 Resp 20 11/29/17 07:10 BP 164/68 H 11/29/17 07:10 Pulse Ox 97 11/29/17 07:10 - Labs Result Diagrams: 11/29/17 07:23 11/29/17 07:23 Labs: Laboratory Results - last 24 hr 11/28/17 11/28/17 11/29/17 16:21 21:05 06:45 WBC RBC Hgb Hct MCV MCH MCHC RDW Plt Count MPV Neut % (Auto) Lymph % (Auto) [place] % (Auto) Eos % (Auto) Baso % (Auto) Neut # (Auto) Lymph # (Auto) [place] # (Auto) Eos # (Auto) Baso # (Auto) Sodium Potassium Chloride Carbon Dioxide Anion Gap BUN Creatinine Est GFR ( Amer) Est GFR (Non-Af Amer) POC Glucose (mg/dL) 133 H 124 H 134 H Random Glucose Calcium Phosphorus Magnesium Total Bilirubin AST ALT Alkaline Phosphatase Total Protein Albumin Globulin Albumin/Globulin Ratio 11/29/17 11/29/17 11/29/17 07:23 07:23 11:41 WBC 9.9 RBC 4.15 Hgb 12.6 Hct 35.4 MCV 85.4 MCH 30.3 MCHC 35.5 RDW 13.0 Plt Count 248 MPV 8.5 Neut % (Auto) 62.8 Lymph % (Auto) 22.9 [place] % (Auto) 6.3 Eos % (Auto) 7.3 H Baso % (Auto) 0.7 Neut # (Auto) 6.2 Lymph # (Auto) 2.3 [place] # (Auto) 0.6 Eos # (Auto) 0.7 Baso # (Auto) 0.1 Sodium 140 Potassium 4.2 Chloride 106 Carbon Dioxide 23 Anion Gap 15 BUN 6 L Creatinine 0.7 Est GFR ( Amer) > 60 Est GFR (Non-Af Amer) > 60 POC Glucose (mg/dL) 78 Random Glucose 118 H Calcium 9.2 Phosphorus 4.1 Magnesium 1.8 Total Bilirubin 0.4 AST 31 ALT 15 Alkaline Phosphatase 62 Total Protein 7.3 Albumin 3.9 Globulin 3.4 Albumin/Globulin Ratio 1.2 Assessment & Plan - Assessment and Plan (Free Text) Assessment: 77F with Right Carotid Stenosis Plan: - US and CTA reviewed showing complete occulsion of the R. ICA - no acute surgical intervention indicated at this time - continue medical management per primary team - discussed w/ Dr. Wilson surgical attending (Covering for Dr. Slade) PGY1
--- NOTE | 2017-11-29 15:36 | CP.PCM.PN ---
<Neli Weiss - Last Filed: 11/29/17 15:36> Subjective - Date & Time of Evaluation Date of Evaluation: 11/29/17 Time of Evaluation: 15:42 - Subjective Subjective: Progress Note for Dr. Craig Patient states she feels a little better, patient currently denies dizziness, headache, nausea, vomiting, diarrhea. It was stressed the importance of exercise and physical therapy. Objective - Vital Signs/Intake and Output Vital Signs (last 24 hours): Temp Pulse Resp BP Pulse Ox 98.6 F 72 20 164/68 H 97 11/29/17 07:10 11/29/17 07:49 11/29/17 07:10 11/29/17 07:10 11/29/17 07:10 Intake and Output: 11/29/17 11/29/17 06:59 18:59 Intake Total 2050 500 Output Total 1375 600 Balance 675 -100 - Medications Medications: Current Medications Aspirin (Aspirin Chewable) 81 mg PO DAILY [facility] Last Admin: 11/29/17 09:19 Dose: 81 mg Carvedilol (Coreg) 3.125 mg PO BID [facility] Last Admin: 11/29/17 11:53 Dose: 3.125 mg Clopidogrel Bisulfate (Plavix) 75 mg PO DAILY [facility] Last Admin: 11/29/17 09:19 Dose: 75 mg Dextrose (Dextrose 50% Inj) 0 ml IV STAT PRN; Protocol PRN Reason: Hypoglycemia Protocol Dextrose (Glutose 15) 0 gm PO ONCE PRN; Protocol PRN Reason: Hypoglycemia Protocol Diltiazem HCl (Cardizem) 240 mg PO DAILY [facility] Last Admin: 11/29/17 09:20 Dose: 240 mg Glipizide (Glucotrol) 10 mg PO DAILY [facility] Last Admin: 11/29/17 09:23 Dose: 10 mg Glucagon (Glucagen Diagnostic Kit) 0 mg IM STAT PRN; Protocol PRN Reason: Hypoglycemia Protocol Heparin Sodium (Porcine) (Heparin) 5,000 units SC Q12 [facility] Last Admin: 11/29/17 09:20 Dose: 5,000 units Dextrose (Dextrose 5% In Water 1000 Ml) 1,000 mls @ 0 mls/hr IV .Q0M PRN; Protocol; Per Protocol PRN Reason: Hypoglycemia Protocol Insulin Human Regular (Novolin R) 0 unit SC ACHS [facility] PRN Reason: Protocol Last Admin: 11/29/17 12:01 Dose: Not Given Lisinopril (Zestril) 5 mg PO DAILY [facility] Last Admin: 11/29/17 11:53 Dose: 5 mg Magnesium Oxide (Mag-Ox) 400 mg PO BID [facility] Last Admin: 11/29/17 09:19 Dose: 400 mg Rosuvastatin Calcium (Crestor) 20 mg PO HS [facility] Last Admin: 11/28/17 22:27 Dose: 20 mg - Labs Labs: 11/29/17 07:23 11/29/17 07:23 PT 12.1 SECONDS (9.7-12.2) 11/24/17 13:21 INR 1.1 11/24/17 13:21 APTT 30 SECONDS (21-34) 11/24/17 13:21 - Additional Findings Additional findings: - Constitutional Appears: Non-toxic, No Acute Distress, Chronically Ill - Head Exam Head Exam: NORMAL INSPECTION, NORMOCEPHALIC - Eye Exam Eye Exam: EOMI, Normal appearance Pupil Exam: NORMAL ACCOMODATION, PERRL - ENT Exam ENT Exam: Mucous Membranes Moist, Normal Exam - Neck Exam Neck exam: Positive for: Full Rom, Normal Inspection - Respiratory Exam Respiratory Exam: Chest Wall Tenderness (right side that travels to back on palpation of ribs, sternal chest pain. ). absent: Accessory Muscle Use - Cardiovascular Exam Cardiovascular Exam: REGULAR RHYTHM, +S1, +S2 - GI/Abdominal Exam GI & Abdominal Exam: Normal Bowel Sounds, Soft. absent: Tenderness - Extremities Exam Extremities exam: Positive for: full ROM. Negative for: pedal edema - Back Exam Back exam: FULL ROM, NORMAL INSPECTION. absent: paraspinal tenderness - Neurological Exam Neurological exam: Alert Additional comments: Patient has 3/5 muscle strength of left lower extremity Patient has 5/5 muscle strength of right lower extremity Patient has 0/5 muscle strength of right upper extremity Patient's left upper extremity is kept in a sling like position unless lifted by patients own right upper extremity. Patient states no sensation of left lower extremity - Psychiatric Exam Psychiatric exam: Normal Affect, Normal Mood Assessment and Plan - Assessment and Plan (Free Text) Assessment: This is a 77 yo female with 1. Hx of Right sided CVA -Neurology consulted, Dr. 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 Baltazar: right hemispheric anterior circulation infarct as likely result of a right ICA acute occlusion. Ultrasound shows high grade stenosis, with CTA showing distal to that occlusion. The right MARS and MCA appear to be filling via centralization across an AComm. There is no severe contralateral ICA stenosis. No intervention at this time. - Dr. Slade Consulted, Dr. Robert galindo, will follow up 2. Chest pain -Resolved -Troponin negative x3 -EKG negative for acute ST changes -CTA shows no evidence of PE -LE doppler shows no evidence of DVT -Echo shows estimate EF 46%, mild impaired systolic function -Cardiology consulted, Dr. Muñoz -Follow neurology recommendations -Plavix 75 mg po daily -ASA 81 mg po daily 3. hx of DM -Glipizide 10mg po daily -Regular ISS -Hypoglycemic protocol -Accucheck ACHS 4. GI/DVT Prophylactic measures -ASA 81 mg po daily -Plavix 75 mg po daily -GI ppx not indicated -PT/OT Dispo: patient will require home visiting nurse and physical therapy upon discharge Dr. Slade Consulted, Dr. Robert galindo, will follow up discusssed with Dr. Kiara Weiss, DO PGY1 <Bj Craig - Last Filed: 11/29/17 17:26> Objective - Vital Signs/Intake and Output Vital Signs (last 24 hours): Temp Pulse Resp BP Pulse Ox 98.7 F 69 20 154/75 H 97 11/29/17 15:59 11/29/17 15:59 11/29/17 15:59 11/29/17 15:59 11/29/17 15:59 Intake and Output: 11/29/17 11/29/17 06:59 18:59 Intake Total 2050 500 Output Total 1375 600 Balance 675 -100 - Medications Medications: Current Medications Aspirin (Aspirin Chewable) 81 mg PO DAILY [facility] Last Admin: 11/29/17 09:19 Dose: 81 mg Carvedilol (Coreg) 3.125 mg PO BID [facility] Last Admin: 11/29/17 11:53 Dose: 3.125 mg Clopidogrel Bisulfate (Plavix) 75 mg PO DAILY [facility] Last Admin: 05/30/18 09:19 Dose: 75 mg Dextrose (Dextrose 50% Inj) 0 ml IV STAT PRN; Protocol PRN Reason: Hypoglycemia Protocol Dextrose (Glutose 15) 0 gm PO ONCE PRN; Protocol PRN Reason: Hypoglycemia Protocol Diltiazem HCl (Cardizem) 240 mg PO DAILY [facility] Last Admin: 11/29/17 09:20 Dose: 240 mg Glipizide (Glucotrol) 10 mg PO DAILY [facility] Last Admin: 11/29/17 09:23 Dose: 10 mg Glucagon (Glucagen Diagnostic Kit) 0 mg IM STAT PRN; Protocol PRN Reason: Hypoglycemia Protocol Heparin Sodium (Porcine) (Heparin) 5,000 units SC Q12 [facility] Last Admin: 11/29/17 09:20 Dose: 5,000 units Dextrose (Dextrose 5% In Water 1000 Ml) 1,000 mls @ 0 mls/hr IV .Q0M PRN; Protocol; Per Protocol PRN Reason: Hypoglycemia Protocol Insulin Human Regular (Novolin R) 0 unit SC ACHS [facility] PRN Reason: Protocol Last Admin: 11/29/17 12:01 Dose: Not Given Lisinopril (Zestril) 5 mg PO DAILY [facility] Last Admin: 11/29/17 11:53 Dose: 5 mg Magnesium Oxide (Mag-Ox) 400 mg PO BID [facility] Last Admin: 11/29/17 09:19 Dose: 400 mg Rosuvastatin Calcium (Crestor) 20 mg PO HS [facility] Last Admin: 11/28/17 22:27 Dose: 20 mg - Labs Labs: 11/29/17 07:23 11/29/17 07:23 PT 12.1 SECONDS (9.7-12.2) 11/24/17 13:21 INR 1.1 11/24/17 13:21 APTT 30 SECONDS (21-34) 11/24/17 13:21 Attending/Attestation - Attestation I have personally seen and examined this patient.: Yes I have fully participated in the care of the patient.: Yes I have reviewed all pertinent clinical information, including history, physical exam and plan: Yes Notes (Text): 11/29/17 17:24 Medical attending: Patient was seen and examined by me. Agree with the above note by the resident The patient's situation is not changed from previous - she continues to have the left upper arm and left hand weakness 0/5 - the left leg is 3/5 strength. She was again talkative and alert. Today family members were not present at bedside will try to see if patient is candidate for carotid enderacteomy or not. If not then our plan is medical managment and see if she can go to a rehab. Bj Craig
[2017-11-30] MEDS: Sodium Chloride 0.9% 1,000 ML IV SCH ×4 (00:48→13:58)
[2017-11-30] MEDS: (Novolin R) Insulin Human Regular 100 units/ml vial SC SCH ×3 (07:32→17:10)
--- NOTE | 2017-11-30 07:52 | CP.PCM.DIS ---
Provider - Provider Date of Admission: 11/27/17 14:55 Attending physician: Bj Craig DO Consults: Dr. Wanda Slade Time Spent in preparation of Discharge (in minutes): 35 Hospital Course - Lab Results Lab Results: Micro Results 11/26/17 14:35 Urine,Clean Catch Urine Culture - Final 10-50,000 CFU/ML. MULTIPLE SPECIES. PROBABLE CONTAMINATION. Most Recent Lab Values WBC 9.9 K/uL (4.8-10.8) 11/29/17 07:23 RBC 4.15 Mil/uL (3.80-5.20) 11/29/17 07:23 Hgb 12.6 g/dL (11.0-16.0) 11/29/17 07:23 Hct 35.4 % (34.0-47.0) 11/29/17 07:23 MCV 85.4 fL (81.0-99.0) 11/29/17 07:23 MCH 30.3 pg (27.0-31.0) 11/29/17 07:23 MCHC 35.5 g/dL (33.0-37.0) 11/29/17 07:23 RDW 13.0 % (11.5-14.5) 11/29/17 07:23 Plt Count 248 K/uL (130-400) 11/29/17 07:23 MPV 8.5 fL (7.2-11.7) 11/29/17 07:23 Neut % (Auto) 62.8 % (50.0-75.0) 11/29/17 07:23 Lymph % (Auto) 22.9 % (20.0-40.0) 11/29/17 07:23 Arthur % (Auto) 6.3 % (0.0-10.0) 11/29/17 07:23 Eos % (Auto) 7.3 % (0.0-4.0) H 11/29/17 07:23 Baso % (Auto) 0.7 % (0.0-2.0) 11/29/17 07:23 Neut # (Auto) 6.2 K/uL (1.8-7.0) 11/29/17 07:23 Lymph # (Auto) 2.3 K/uL (1.0-4.3) 11/29/17 07:23 Arthur # (Auto) 0.6 K/uL (0.0-0.8) 11/29/17 07:23 Eos # (Auto) 0.7 K/uL (0.0-0.7) 11/29/17 07:23 Baso # (Auto) 0.1 K/uL (0.0-0.2) 11/29/17 07:23 PT 12.1 SECONDS (9.7-12.2) 11/24/17 13:21 INR 1.1 11/24/17 13:21 APTT 30 SECONDS (21-34) 11/24/17 13:21 Sodium 140 mmol/L (132-148) 11/29/17 07:23 Potassium 4.2 mmol/L (3.6-5.2) 11/29/17 07:23 Chloride 106 mmol/L (98-107) 11/29/17 07:23 Carbon Dioxide 23 mmol/L (22-30) 11/29/17 07:23 Anion Gap 15 (10-20) 11/29/17 07:23 BUN 6 mg/dL (7-17) L 11/29/17 07:23 Creatinine 0.7 mg/dL (0.7-1.2) 11/29/17 07:23 Est GFR ( Amer) > 60 11/29/17 07:23 Est GFR (Non-Af Amer) > 60 11/29/17 07:23 POC Glucose (mg/dL) 110 mg/dL (65-110) 11/29/17 20:56 Random Glucose 118 mg/dL (65-105) H 11/29/17 07:23 Hemoglobin A1c 8.7 % (4.2-6.5) H 11/25/17 08:05 Calcium 9.2 mg/dl (8.6-10.4) 11/29/17 07:23 Phosphorus 4.1 mg/dL (2.5-4.5) 11/29/17 07:23 Magnesium 1.8 mg/dL (1.6-2.3) 11/29/17 07:23 Total Bilirubin 0.4 mg/dL (0.2-1.3) 11/29/17 07:23 AST 31 U/L (14-36) 11/29/17 07:23 ALT 15 U/L (9-52) 11/29/17 07:23 Alkaline Phosphatase 62 U/L (38-126) 11/29/17 07:23 Total Creatine Kinase 31 U/L (30-135) 11/25/17 01:20 CK-MB (Mass) 0.95 ng/mL (0.0-3.38) 11/25/17 01:20 Troponin I 0.0120 ng/mL (0.00-0.120) 11/25/17 01:20 NT-Pro-B Natriuret Pep 68.0 pg/mL (0-900) 11/24/17 13:21 Total Protein 7.3 g/dL (6.3-8.3) 11/29/17 07:23 Albumin 3.9 g/dL (3.5-5.0) 11/29/17 07:23 Globulin 3.4 gm/dL (2.2-3.9) 11/29/17 07:23 Albumin/Globulin Ratio 1.2 (1.0-2.1) 11/29/17 07:23 Triglycerides 168 mg/dL (0-149) H 11/25/17 08:05 Cholesterol 130 mg/dL (0-199) 11/25/17 08:05 LDL Cholesterol Direct 73 mg/dL (0-129) 11/25/17 08:05 HDL Cholesterol 30 mg/dL (30-70) 11/25/17 08:05 Urine Color Yellow (YELLOW) 11/26/17 14:35 Urine Clarity Clear (Clear) 11/26/17 14:35 Urine pH 7.0 (5.0-8.0) 11/26/17 14:35 Ur Specific [place] 1.049 (1.003-1.030) H 11/26/17 14:35 Urine Protein Negative mg/dL (NEGATIVE) 11/26/17 14:35 Urine Glucose (UA) Normal mg/dL (Normal) 11/26/17 14:35 Urine Ketones Negative mg/dL (NEGATIVE) 11/26/17 14:35 Urine Blood Negative (NEGATIVE) 11/26/17 14:35 Urine Nitrate Negative (NEGATIVE) 11/26/17 14:35 Urine Bilirubin Negative (NEGATIVE) 11/26/17 14:35 Urine Urobilinogen Normal mg/dL (0.2-1.0) 11/26/17 14:35 Ur Leukocyte Esterase Neg Robb/uL (Negative) 11/26/17 14:35 Urine WBC (Auto) 1 /hpf (0-5) 11/26/17 14:35 Urine RBC (Auto) 3 /hpf (0-3) 11/26/17 14:35 Ur Squamous Epith Cells < 1 /hpf (0-5) 11/26/17 14:35 - Hospital Course Hospital Course: CC: Chest pain, shortness of breath HPI: Patient presents with chest pain with breathing and shortness of breath. Patient's daughter at bedside and states that patient came back recently from [place] and started feeling chest pain that comes and goes with breathing. Patient states that it's a sharp pain. Patient lives at home with daughter. Per Daughter, Patient had a stroke in [place] October 15, 2017 and October 20, 2017) where she lost motor function of left upper extremity and decreased strength of left leg. Patient sits on the futon and is moved around the house in a wheelchair. Patient's daughter and patient state that patient is forgetful and memory is foggy. Patient's daughter states that she has difficulty eating at times and has decreased appetite. Hospital Course Patient seen and examined at bedside. No acute events overnight. - Date & Time of H&P Date of H&P: 11/30/17 Time of H&P: 16:44 Discharge Exam - Head Exam Head Exam: ATRAUMATIC, NORMAL INSPECTION, NORMOCEPHALIC - Eye Exam Eye Exam: EOMI, Normal appearance - ENT Exam ENT Exam: Mucous Membranes Moist - Neck Exam Neck exam: Full Rom - Cardiovascular Exam Cardiovascular Exam: REGULAR RHYTHM, +S1, +S2. absent: Bradycardia, Tachycardia - GI/Abdominal Exam GI & Abdominal Exam: Normal Bowel Sounds, Soft. absent: Unremarkable - Extremities Exam Extremities exam: normal capillary refill Additional comments: right upper extremity strength 0/5 left upper extremity strength 5/5 Left lower extremity strength 5/5 Right lower extremity strength 2-3/5 - Back Exam Back exam: CVA tenderness (L), FULL ROM. absent: CVA tenderness (R) - Neurological Exam Neurological exam: CN II-XII Intact, Normal Gait - Psychiatric Exam Psychiatric exam: Flat Affect, Normal Affect, Normal Mood - Skin Skin Exam: Dry, Intact, Pallor, Warm Discharge Plan - Follow Up Plan Condition: STABLE Disposition: REHAB FACILITY/REHAB UNIT Additional Instructions: Patient to go to [facility] for rehabilitation. Patient will need physical therapy continue home medications and blood pressure medications listed on discharge
[2017-11-30 07:55] LABS: BASO # 0.1 K/uL (0.0-0.2); BASO % 0.8 % (0.0-2.0); EOS # 0.6 K/uL (0.0-0.7); EOS % 5.6 % (0.0-4.0); HEMOGLOBIN 12.2 g/dL (11.0-16.0); LYMPH # 2.7 K/uL (1.0-4.3); LYMPH % 25.2 % (20.0-40.0); MEAN CELL VOLUME 85.3 fL (81.0-99.0); MEAN CORPUSCULAR HEMOGLOBIN 30.2 pg (27.0-31.0); MEAN CORPUSCULAR HGB CONC 35.4 g/dL (33.0-37.0); MEAN PLATELET VOLUME 8.6 fL (7.2-11.7); MONO # 0.8 K/uL (0.0-0.8); MONO % 7.8 % (0.0-10.0); NEUT # 6.4 K/uL (1.8-7.0); NEUT % 60.6 % (50.0-75.0); RBC 4.04 Mil/uL (3.80-5.20); RED CELL DISTRIBUTION WIDTH 13.1 % (11.5-14.5); WHITE BLOOD COUNT 10.6 K/uL (4.8-10.8)
[2017-11-30 08:21] LABS: ALB/GLOB RATIO 1.1 (1.0-2.1); ALBUMIN 3.8 g/dL (3.5-5.0); ALT/SGPT 27 U/L (9-52); AST/SGOT 24 U/L (14-36); BLOOD UREA NITROGEN 9 mg/dL (7-17); CALCIUM 9.5 mg/dl (8.6-10.4); GFR AFRICAN-AMERICAN > 60; GFR NON-AFRICAN AMERICAN > 60
--- NOTE | 2017-11-30 08:22 | CP.PCM.PN ---
Subjective - Date & Time of Evaluation Date of Evaluation: 11/30/17 Time of Evaluation: 08:22 - Subjective Subjective: Ms. Gutierrez was seen and examined at the bedside. She is alert, oriented x 3. She denies any lightheadedness,blurred vision, photophobia, phonophobia, nausea , or vomiting. but claims of vision problem which has been going on for a couple months.She complains of headache in the frontal area with pain scale 2/10 , non-radiating. She further claims of not able to sleep due to the noise from roommate. She remains with left sided weakness including asymmetrical sensation. She is able to follow simple commands and tolerate PO intake. There was no untoward events overnight. Objective - Vital Signs/Intake and Output Vital Signs (last 24 hours): Temp Pulse Resp BP Pulse Ox 98.4 F 56 L 18 137/52 L 100 11/30/17 07:40 11/30/17 07:40 11/30/17 07:40 11/30/17 07:40 11/30/17 07:40 Intake and Output: 11/30/17 11/30/17 06:59 18:59 Intake Total 1850 Output Total 600 Balance 1250 - Medications Medications: Current Medications Aspirin (Aspirin Chewable) 81 mg PO DAILY [facility] Last Admin: 11/29/17 09:19 Dose: 81 mg Carvedilol (Coreg) 3.125 mg PO BID [facility] Last Admin: 11/29/17 19:00 Dose: 3.125 mg Clopidogrel Bisulfate (Plavix) 75 mg PO DAILY [facility] Last Admin: 11/29/17 09:19 Dose: 75 mg Dextrose (Dextrose 50% Inj) 0 ml IV STAT PRN; Protocol PRN Reason: Hypoglycemia Protocol Dextrose (Glutose 15) 0 gm PO ONCE PRN; Protocol PRN Reason: Hypoglycemia Protocol Diltiazem HCl (Cardizem) 240 mg PO DAILY [facility] Last Admin: 11/29/17 09:20 Dose: 240 mg Glipizide (Glucotrol) 10 mg PO DAILY [facility] Last Admin: 11/29/17 09:23 Dose: 10 mg Glucagon (Glucagen Diagnostic Kit) 0 mg IM STAT PRN; Protocol PRN Reason: Hypoglycemia Protocol Heparin Sodium (Porcine) (Heparin) 5,000 units SC Q12 [facility] Last Admin: 11/29/17 22:28 Dose: 5,000 units Dextrose (Dextrose 5% In Water 1000 Ml) 1,000 mls @ 0 mls/hr IV .Q0M PRN; Protocol; Per Protocol PRN Reason: Hypoglycemia Protocol Sodium Chloride (Sodium Chloride 0.9%) 1,000 mls @ 100 mls/hr IV .Q10H [facility] Last Admin: 11/30/17 02:34 Dose: 100 mls/hr Insulin Human Regular (Novolin R) 0 unit SC ACHS [facility] PRN Reason: Protocol Last Admin: 11/30/17 07:32 Dose: Not Given Lisinopril (Zestril) 5 mg PO DAILY [facility] Last Admin: 11/29/17 11:53 Dose: 5 mg Magnesium Oxide (Mag-Ox) 400 mg PO BID [facility] Last Admin: 11/29/17 19:00 Dose: 400 mg Rosuvastatin Calcium (Crestor) 20 mg PO HS [facility] Last Admin: 11/29/17 22:27 Dose: 20 mg - Labs Labs: 11/30/17 07:40 11/30/17 07:40 PT 12.1 SECONDS (9.7-12.2) 11/24/17 13:21 INR 1.1 11/24/17 13:21 APTT 30 SECONDS (21-34) 11/24/17 13:21 - Constitutional Appears: No Acute Distress - Head Exam Head Exam: NORMAL INSPECTION - Eye Exam Pupil Exam: PERRL - Neurological Exam Neurological Exam: Alert, Awake, Oriented x3 Neuro motor strength exam: Left Upper Extremity: 0, Right Upper Extremity: 5, Left Lower Extremity: 2/1, Right Lower Extremity: 5 Additional comments: Neurological unchanged from previous examination. Assessment and Plan (1) History of CVA (cerebrovascular accident) Assessment & Plan: Case discussed with Dr. Juan, continue all current medical, physical, occupational therapies. Recommend head of the head elevated at least 30 degrees , normotensive, and glycemic control. Recommend to follow an outpatient neurologist for follow up with her stroke. Status: Chronic
[2017-11-30] MEDS: Magnesium Oxide 400 mg Tab UD PO SCH ×2 (09:22→18:05)
--- NOTE | 2017-11-30 11:18 | CP.PCM.PN ---
<Neli Weiss - Last Filed: 11/30/17 11:18> Subjective - Date & Time of Evaluation Date of Evaluation: 11/30/17 Time of Evaluation: 11:17 - Subjective Subjective: Progress Note for Dr. Craig Patient states she feels a little better. Patient denies fever, chills, chest pain, dizziness, headache, nausea, vomiting, diarrhea. It was stressed the importance of exercise and physical therapy. Patient states she will try Objective - Vital Signs/Intake and Output Vital Signs (last 24 hours): Temp Pulse Resp BP Pulse Ox 98.4 F 56 L 18 137/52 L 100 11/30/17 07:40 11/30/17 07:40 11/30/17 07:40 11/30/17 07:40 11/30/17 07:40 Intake and Output: 11/30/17 11/30/17 06:59 18:59 Intake Total 1850 Output Total 600 Balance 1250 - Medications Medications: Current Medications Aspirin (Aspirin Chewable) 81 mg PO DAILY [facility] Last Admin: 11/30/17 09:23 Dose: 81 mg Carvedilol (Coreg) 3.125 mg PO BID [facility] Last Admin: 11/30/17 09:23 Dose: 3.125 mg Clopidogrel Bisulfate (Plavix) 75 mg PO DAILY [facility] Last Admin: 11/30/17 09:22 Dose: 75 mg Dextrose (Dextrose 50% Inj) 0 ml IV STAT PRN; Protocol PRN Reason: Hypoglycemia Protocol Dextrose (Glutose 15) 0 gm PO ONCE PRN; Protocol PRN Reason: Hypoglycemia Protocol Diltiazem HCl (Cardizem) 240 mg PO DAILY [facility] Last Admin: 11/30/17 09:23 Dose: 240 mg Glipizide (Glucotrol) 10 mg PO DAILY [facility] Last Admin: 11/29/17 09:23 Dose: 10 mg Glucagon (Glucagen Diagnostic Kit) 0 mg IM STAT PRN; Protocol PRN Reason: Hypoglycemia Protocol Heparin Sodium (Porcine) (Heparin) 5,000 units SC Q12 [facility] Last Admin: 11/30/17 09:24 Dose: 5,000 units Dextrose (Dextrose 5% In Water 1000 Ml) 1,000 mls @ 0 mls/hr IV .Q0M PRN; Protocol; Per Protocol PRN Reason: Hypoglycemia Protocol Sodium Chloride (Sodium Chloride 0.9%) 1,000 mls @ 100 mls/hr IV .Q10H [facility] Last Admin: 11/30/17 02:34 Dose: 100 mls/hr Insulin Human Regular (Novolin R) 0 unit SC ACHS [facility] PRN Reason: Protocol Last Admin: 11/30/17 07:32 Dose: Not Given Lisinopril (Zestril) 5 mg PO DAILY [facility] Last Admin: 11/30/17 09:22 Dose: 5 mg Magnesium Oxide (Mag-Ox) 400 mg PO BID [facility] Last Admin: 11/30/17 09:22 Dose: 400 mg Rosuvastatin Calcium (Crestor) 20 mg PO HS [facility] Last Admin: 11/29/17 22:27 Dose: 20 mg - Labs Labs: 11/30/17 07:40 11/30/17 07:40 PT 12.1 SECONDS (9.7-12.2) 11/24/17 13:21 INR 1.1 11/24/17 13:21 APTT 30 SECONDS (21-34) 11/24/17 13:21 - Additional Findings Additional findings: - Constitutional Appears: Non-toxic, No Acute Distress, Chronically Ill - Head Exam Head Exam: NORMAL INSPECTION, NORMOCEPHALIC - Eye Exam Eye Exam: EOMI, Normal appearance Pupil Exam: NORMAL ACCOMODATION, PERRL - ENT Exam ENT Exam: Mucous Membranes Moist, Normal Exam - Neck Exam Neck exam: Positive for: Full Rom, Normal Inspection - Respiratory Exam Respiratory Exam: Chest Wall Tenderness (right side that travels to back on palpation of ribs, sternal chest pain. ). absent: Accessory Muscle Use - Cardiovascular Exam Cardiovascular Exam: REGULAR RHYTHM, +S1, +S2 - GI/Abdominal Exam GI & Abdominal Exam: Normal Bowel Sounds, Soft. absent: Tenderness - Extremities Exam Extremities exam: Positive for: full ROM. Negative for: pedal edema - Back Exam Back exam: FULL ROM, NORMAL INSPECTION. absent: paraspinal tenderness - Neurological Exam Neurological exam: Alert Additional comments: Patient has 3/5 muscle strength of left lower extremity Patient has 5/5 muscle strength of right lower extremity Patient has 0/5 muscle strength of right upper extremity Patient's left upper extremity is kept in a sling like position unless lifted by patients own right upper extremity. Patient states no sensation of left lower extremity - Psychiatric Exam Psychiatric exam: Normal Affect, Normal Mood Assessment and Plan - Assessment and Plan (Free Text) Assessment: This is a 77 yo female with 1. Hx of Right sided CVA -Neurology consulted, Dr. 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 Baltazar: right hemispheric anterior circulation infarct as likely result of a right ICA acute occlusion. Ultrasound shows high grade stenosis, with CTA showing distal to that occlusion. The right MARS and MCA appear to be filling via centralization across an AComm. There is no severe contralateral ICA stenosis. No intervention at this time. - Dr. Slade Consulted, Dr. Jones covering: no intervention at this time for right ICA 2. Chest pain -Resolved -Troponin negative x3 -EKG negative for acute ST changes -CTA shows no evidence of PE -LE doppler shows no evidence of DVT -Echo shows estimate EF 46%, mild impaired systolic function -Cardiology consulted, Dr. Muñoz -Plavix 75 mg po daily -ASA 81 mg po daily 3. hx of DM -Glipizide 10mg po daily -Regular ISS -Hypoglycemic protocol -Accucheck ACHS 4. GI/DVT Prophylactic measures -ASA 81 mg po daily -Plavix 75 mg po daily -GI ppx not indicated -PT/OT Dispo: patient will require home visiting nurse and physical therapy upon discharge No neurointerventionalist interventions at this time. Dr. Slade Consulted, Dr. Jones covering: no surgical interventions as there is 100% occlusion currently waiting [facility]A placement as patient has Medicare discussed with Dr. Kiara Weiss DO PGY1 <Bj Craig - Last Filed: 11/30/17 17:16> Objective - Vital Signs/Intake and Output Vital Signs (last 24 hours): Temp Pulse Resp BP Pulse Ox 99.3 F 67 20 162/56 H 98 11/30/17 15:54 11/30/17 15:54 11/30/17 15:54 11/30/17 15:54 11/30/17 15:54 Intake and Output: 11/30/17 11/30/17 06:59 18:59 Intake Total 1850 800 Output Total 600 750 Balance 1250 50 - Medications Medications: Current Medications Aspirin (Aspirin Chewable) 81 mg PO DAILY [facility] Last Admin: 11/30/17 09:23 Dose: 81 mg Carvedilol (Coreg) 3.125 mg PO BID [facility] Last Admin: 11/30/17 09:23 Dose: Not Given Clopidogrel Bisulfate (Plavix) 75 mg PO DAILY [facility] Last Admin: 11/30/17 09:22 Dose: 75 mg Dextrose (Dextrose 50% Inj) 0 ml IV STAT PRN; Protocol PRN Reason: Hypoglycemia Protocol Dextrose (Glutose 15) 0 gm PO ONCE PRN; Protocol PRN Reason: Hypoglycemia Protocol Diltiazem HCl (Cardizem) 240 mg PO DAILY [facility] Last Admin: 11/30/17 10:00 Dose: Not Given Glipizide (Glucotrol) 10 mg PO DAILY [facility] Last Admin: 11/30/17 11:00 Dose: 10 mg Glucagon (Glucagen Diagnostic Kit) 0 mg IM STAT PRN; Protocol PRN Reason: Hypoglycemia Protocol Heparin Sodium (Porcine) (Heparin) 5,000 units SC Q12 [facility] Last Admin: 11/30/17 09:24 Dose: 5,000 units Dextrose (Dextrose 5% In Water 1000 Ml) 1,000 mls @ 0 mls/hr IV .Q0M PRN; Protocol; Per Protocol PRN Reason: Hypoglycemia Protocol Sodium Chloride (Sodium Chloride 0.9%) 1,000 mls @ 100 mls/hr IV .Q10H [facility] Last Admin: 11/30/17 13:58 Dose: 100 mls/hr Insulin Human Regular (Novolin R) 0 unit SC ACHS [facility] PRN Reason: Protocol Last Admin: 11/30/17 12:18 Dose: 2 unit Lisinopril (Zestril) 5 mg PO DAILY [facility] Last Admin: 11/30/17 09:22 Dose: 5 mg Magnesium Oxide (Mag-Ox) 400 mg PO BID [facility] Last Admin: 11/30/17 09:22 Dose: 400 mg Rosuvastatin Calcium (Crestor) 20 mg PO HS [facility] Last Admin: 11/29/17 22:27 Dose: 20 mg - Labs Labs: 11/30/17 07:40 11/30/17 07:40 PT 12.1 SECONDS (9.7-12.2) 11/24/17 13:21 INR 1.1 11/24/17 13:21 APTT 30 SECONDS (21-34) 11/24/17 13:21 Attending/Attestation - Attestation I have personally seen and examined this patient.: Yes I have fully participated in the care of the patient.: Yes I have reviewed all pertinent clinical information, including history, physical exam and plan: Yes Notes (Text): 11/30/17 17:11 Medical attending: Patient was seen and examined by me. Agree with the above note by the resident The patient was not in any acute distress when we saw and examined her. The continues to have the left hand and arm weakness 0/5 while the leg is 3/5 Patient is not a candidate for interventional procedures. Patient will be on medication including Plavix, ASA, Crestor and also BP control Pending KASSANDRA at this time thank you Bj Craig
[2017-11-30 16:55] VITALS: RESP 20; O2SAT 98
[2017-11-30 17:59] VITALS: PULSE 74
[2017-11-30 20:06] VITALS: TEMP 97.8
[2017-11-30 20:13] VITALS: BP 150/62
--- NOTE | 2017-12-01 06:26 | CARD ---
APPROVED REPORT EKG Measurement Heart [id number] <Conclusion> Normal sinus rhythm ST & T wave abnormality, consider lateral ischemia Abnormal ECG
== END 2017-11-30 21:20 | DRG 68 ==
LOC: C.ER 12:30 → C.9E 17:21 → C.6T 17:51 → OBSVTOIN 11-27 14:55
PROVIDERS: ADMIT Internal Medicine; ATTEND Hospitalist
DX: I65.21 Occlusion and stenosis of right carotid artery (principal); Z68.1 Body mass index [BMI] 19.9 or less, adult; I25.10 Atherosclerotic heart disease of native coronary artery without angina pectoris; Z74.01 Bed confinement status; Z86.73 Personal history of transient ischemic attack (TIA), and cerebral infarction without residual deficits; Z95.5 Presence of coronary angioplasty implant and graft; I25.2 Old myocardial infarction; I10 Essential (primary) hypertension; E78.00 Pure hypercholesterolemia, unspecified; E11.9 Type 2 diabetes mellitus without complications; Z79.4 Long term (current) use of insulin

== ENCOUNTER 2018-02-06 21:55 | Emergency (ER) | payer MEDICAID, MEDICARE ==
[2018-02-06 22:16] VITALS: RESP 18
--- NOTE | 2018-02-06 23:15 | C.PDOC ---
History Of Present Illness Patient presents to the ER after she slipped and fell out of her bed when trying to get on the commode. The fall was witness by family members. Patient has a Hx previous stroke with left sided hemiplegia. Currently she is complaining of left hip pain and mild left temporal/parietal pain. Denies LOC, headache, nausea, or vomiting. - HPI Time Seen by Provider: 02/06/18 23:04 Chief Complaint (Nursing): Trauma History Per: Patient History/Exam Limitations: no limitations Onset/Duration Of Symptoms: Hrs Injury Occurred (Timing): Just Before Arrival Location Of Injury: Left: Head (Temporal/Parietal area), Hip Recent travel outside of the [place]: No - Fall Fall:Prior To Injury: Slipped Past Medical History Reviewed: Historical Data, Nursing Documentation, Vital Signs Vital Signs: Last Vital Signs Temp 98.6 F 02/06/18 22:15 Pulse 62 02/06/18 22:15 Resp 18 02/06/18 22:15 BP 116/67 02/06/18 22:15 Pulse Ox 96 02/06/18 23:23 - Medical History PMH: CAD, Depression, Diabetes, HTN, Hypercholesterolemia Surgical History: CABG, Coronary Stent - [facility] Procedures GROUP PSYCHOTHERAPY (12/12/17) INDIVIDUAL PSYCHOTHERAPY, BEHAVIORAL (12/12/17) Family History: States: No Known Family Hx - Social History Hx Tobacco Use: No Hx Alcohol Use: No Hx Substance Use: No - Immunization History Hx Tetanus Toxoid Vaccination: No Hx Influenza Vaccination: Yes Hx Pneumococcal Vaccination: Yes Review Of Systems Cardiovascular: Negative for: Chest Pain, Palpitations Respiratory: Negative for: Cough, Shortness of Breath Gastrointestinal: Negative for: Nausea, Vomiting Musculoskeletal: Positive for: Other (Left hip pain, Left temporal/parietal pain ). Negative for: Neck Pain Neurological: Negative for: Weakness, Numbness, Headache Physical Exam - Physical Exam Appears: Non-toxic Skin: Warm, Dry Head: Normacephalic Eye(s): bilateral: Normal Inspection, PERRL, EOMI Oral Mucosa: Moist Neck: Trachea Midline, No Midline Cervical Tenderness, No Paracervical Tenderness, Supple Chest: Symmetrical, No Tenderness Cardiovascular: Rhythm Regular Respiratory: No Rales, No Rhonchi, No Wheezing Gastrointestinal/Abdominal: Soft, No Tenderness Back: No Vertebral Tenderness, No Paraspinal Tenderness Extremity: Other (No pain with passive motion of left hip) Pulses: Left Radial: Normal, Right Radial: Normal, Left Dorsalis Pedis: Normal, Right Dorsalis Pedis: Normal Neurological/Psych: Oriented x3, Other (Left hemiplegia) ED Course And Treatment O2 Sat by Pulse Oximetry: 96 (Room air) Pulse Ox Interpretation: Normal Progress Note: Left hip x-ray and CT head ordered. Reevaluation Time: 00:09 Reassessment Condition: Improved Disposition Counseled Patient/Family Regarding: Studies Performed, Diagnosis - Disposition Referrals: Emely Wu MD [Staff Provider] - Disposition: HOME/ ROUTINE Disposition Time: 23:15 Condition: FAIR Instructions: Contusion (DC), Preventing Falls, Minor Head Injury (DC) Forms: [employer] (Moroccan) - Clinical Impression Clinical Impression: Minor head injury without loss of consciousness, Contusion of left hip, Fall - Scribe Statement The provider has reviewed the documentation as recorded by the Scribe Jorge Page All medical record entries made by the Scribe were at my direction and personally dictated by me. I have reviewed the chart and agree that the record accurately reflects my personal performance of the history, physical exam, medical decision making, and the department course for this patient. I have also personally directed, reviewed, and agree with the discharge instructions and disposition.
[2018-02-07 00:13] VITALS: BP 122/66; PULSE 67; TEMP 98.7; O2SAT 98
--- NOTE | 2018-02-07 07:22 | RAD ---
Date of service: 02/06/2018 PROCEDURE: LEFT HIP WITH PELVIS RADIOGRAPHS HISTORY: R/O FX LEFT HIP COMPARISON: None available. TECHNIQUE: AP views of the pelvis soft hip been submitted for interpretation as well as a frog-leg lateral view left hip joint. FINDINGS: No acute fracture or dislocation is identified affecting the left hip joint. Pelvic ring is intact as well without fracture appreciable. Pubic symphysis appears unremarkable. Cortical sclerosis seen at the articular cortex of the bilateral hip joints with left hip joint somewhat narrowed more so than the right compatible degenerative joint disease bilaterally. Sacroiliac joints are also rather sclerotic at the articular surfaces inferiorly. Lower sacrum and coccyx are obscured by bowel the remainder unremarkable. The iliac bones appear intact swells the pubic bones/pubic symphysis. IMPRESSION: No acute fracture or dislocation left hip joint with the pelvic ring intact without fracture as well. degenerative changes are seen the left greater than right hip joints and are symmetric at the bilateral sacroiliac joints.
--- NOTE | 2018-02-07 07:56 | CT ---
Date of service: 02/06/2018 PROCEDURE: CT HEAD WITHOUT CONTRAST. HISTORY: fall COMPARISON: None available. TECHNIQUE: Axial computed tomography images were obtained through the head/brain without intravenous contrast. Radiation dose: Total exam DLP = 816 mGy-cm. This CT exam was performed using one or more of the following dose reduction techniques: Automated exposure control, adjustment of the mA and/or kV according to patient size, and/or use of iterative reconstruction technique. FINDINGS: HEMORRHAGE: No intracranial hemorrhage. BRAIN: Encephalomalacia in the right frontal, bilateral parietal lobes, and left occipital lobe. Moderate white matter disease and volume loss are identified; for example, there is prominent confluent low attenuation seen within the right frontal and parietal periventricular and subcortical white matter suggestive for chronic ischemic changes. VENTRICLES: Prominent. CALVARIUM: Unremarkable. PARANASAL SINUSES: Unremarkable as visualized. No significant inflammatory changes. MASTOID AIR CELLS: Unremarkable as visualized. No inflammatory changes. OTHER FINDINGS: Superficial soft tissue swelling along the superior left calvarium. IMPRESSION: No acute intracranial hemorrhage. Encephalomalacia in the right frontal, bilateral parietal lobes, and left occipital lobe. Moderate white matter disease and volume loss are identified; for example, there is prominent confluent low attenuation seen within the right frontal and parietal periventricular and subcortical white matter suggestive for chronic ischemic changes. Additional findings as above. If symptoms persists, consider correlation with MRI. These findings were preliminarily reported at 11:55 p.m. on 02/06/[address] Lianna Benson from [facility].
== END 2018-02-07 00:24 | disposition home or self-care (01) ==
LOC: C.ER 21:55
DX: S09.90XA Unspecified injury of head, initial encounter (principal); S70.02XA Contusion of left hip, initial encounter; W06.XXXA Fall from bed, initial encounter; Y92.003 Bedroom of unspecified non-institutional (private) residence as the place of occurrence of the external cause; E11.9 Type 2 diabetes mellitus without complications; I25.10 Atherosclerotic heart disease of native coronary artery without angina pectoris; I69.354 Hemiplegia and hemiparesis following cerebral infarction affecting left non-dominant side

== ENCOUNTER 2018-03-03 16:28 | Emergency (ER) | payer MEDICARE, MEDICAID ==
[2018-03-03 16:45] VITALS: TEMP 98.6
[2018-03-03 17:44] LABS: BASO # 0.1 K/uL (0.0-0.2); BASO % 1.3 % (0.0-2.0); EOS # 0.4 K/uL (0.0-0.7); EOS % 4.1 % (0.0-4.0); HEMOGLOBIN 12.7 g/dL (11.0-16.0); LYMPH # 3.2 K/uL (1.0-4.3); LYMPH % 32.5 % (20.0-40.0); MEAN CELL VOLUME 84.2 fL (81.0-99.0); MEAN CORPUSCULAR HEMOGLOBIN 30.5 pg (27.0-31.0); MEAN CORPUSCULAR HGB CONC 36.2 g/dL (33.0-37.0); MEAN PLATELET VOLUME 8.1 fL (7.2-11.7); MONO # 0.7 K/uL (0.0-0.8); MONO % 7.3 % (0.0-10.0); NEUT # 5.4 K/uL (1.8-7.0); NEUT % 54.8 % (50.0-75.0); NRBC % 0.2 % (0.0-2.0); RBC 4.16 Mil/uL (3.80-5.20); RED CELL DISTRIBUTION WIDTH 13.1 % (11.5-14.5); WHITE BLOOD COUNT 9.9 K/uL (4.8-10.8)
[2018-03-03 17:56] LABS: ALB/GLOB RATIO 1.3 (1.0-2.1)
[2018-03-03 17:57] LABS: ALBUMIN 4.2 g/dL (3.5-5.0); ALT/SGPT 24 U/L (9-52); AST/SGOT 12 U/L (14-36); BLOOD UREA NITROGEN 15 mg/dL (7-17); CALCIUM 9.8 mg/dl (8.6-10.4); GFR NON-AFRICAN AMERICAN > 60; LIPASE 53 U/L (23-300)
--- NOTE | 2018-03-03 18:07 | C.PDOC ---
History Of Present Illness 77 year old female presents to ED complaining of intermittent mild shortness of breath for the last several days, particularly when lying flat. Patient also complains of lower abdominal distention/pain, and dysuria for one week. Patient has a history of urinary incontinence and wears a diaper. She denies chest pain, palpitations, cough, fever, vomiting, diarrhea, hematuria. Time Seen by Provider: 03/03/18 16:42 Chief Complaint (Nursing): Shortness Of Breath History Per: Patient History/Exam Limitations: no limitations Onset/Duration Of Symptoms: Days Current Symptoms Are (Timing): Still Present Current Respiratory Medications: See Home Med List Severity: Mild Past Medical History Reviewed: Historical Data, Nursing Documentation, Vital Signs Vital Signs: Last Vital Signs Temp 98.6 F 03/03/18 18:40 Pulse 68 03/03/18 18:40 Resp 18 03/03/18 18:40 BP 154/68 H 03/03/18 18:40 Pulse Ox 97 03/03/18 18:49 - Medical History PMH: Atrial Fibrillation, CAD, Depression, Diabetes, HTN, Hypercholesterolemia Surgical History: CABG, Coronary Stent - [facility] Procedures GROUP PSYCHOTHERAPY (12/12/17) INDIVIDUAL PSYCHOTHERAPY, BEHAVIORAL (12/12/17) Family History: States: No Known Family Hx - Social History Hx Tobacco Use: No Hx Alcohol Use: Yes (hx of social drinking) Hx Substance Use: No - Immunization History Hx Tetanus Toxoid Vaccination: No Hx Influenza Vaccination: Yes Hx Pneumococcal Vaccination: Yes Review Of Systems Constitutional: Negative for: Fever Cardiovascular: Negative for: Chest Pain, Palpitations Respiratory: Positive for: Shortness of Breath (intermittent shortness of breath partucularly with lying flat). Negative for: Cough Gastrointestinal: Positive for: Abdominal Pain (lower abdomen pain ), Other ( lower abdominal distention). Negative for: Vomiting, Diarrhea Genitourinary: Positive for: Dysuria. Negative for: Hematuria, Vaginal Discharge, Vaginal Bleeding Skin: Negative for: Rash Physical Exam - Physical Exam Appears: Well, Non-toxic, No Acute Distress, Other (speaking in full sentences) Skin: Warm, Dry Head: Atraumatic, Normacephalic Eye(s): bilateral: Normal Inspection Oral Mucosa: Moist Neck: Supple Chest: Symmetrical Cardiovascular: Rhythm Regular Respiratory: Normal Breath Sounds, No Rales, No Rhonchi, No Wheezing Gastrointestinal/Abdominal: Bowel Sounds, Soft, Tenderness (mild suprapubic TTP) , No Guarding, No Rebound, Other (surgical scar over suprapubic area, (-) McBurney's) Back: Normal Inspection, No CVA Tenderness Neurological/Psych: Oriented x3, Normal Speech, Normal Cognition, Other ( Chronic left arm weakness.) ED Course And Treatment - Laboratory Results Result Diagrams: 03/03/18 17:41 03/03/18 17:41 O2 Sat by Pulse Oximetry: 97 (RA) Pulse Ox Interpretation: Normal - Other Rad obs series X-Ray: Interpreted by Me, Viewed By Me (constipation, no air fluid levels, no infiltrate) Progress Note: Blood work, urinalysis, obstructive series ordered and reviewed. Reassessment Condition: Improved Disposition Counseled Patient/Family Regarding: Studies Performed, Diagnosis, Need For Followup, Rx Given - Disposition Referrals: Emely Edwards MD [Staff Provider] - Disposition: HOME/ ROUTINE Disposition Time: 18:35 Condition: STABLE Additional Instructions: FOLLOW UP WITH DR EDWARDS IN 1-2 DAYS USE MEDICATIONS DIRECTED DRINK PLENTY OF FLUIDS, AND INCREASE FIBER IN DIET RETURN TO ER IF SYMPTOMS WORSEN Prescriptions: Ciprofloxacin [Cipro] 1 tab PO BID #14 tab Docusate [Colace] 100 mg PO DAILY #30 cap Magnesium Citrate [Citrate of Mag] 300 ml PO ONCE PRN #1 bottle PRN Reason: Constipation Instructions: Constipation, Adult (DC), Urinary Tract Infection, Adult (DC) Forms: [employer] (New Zealander) Print Language: OMANI - Clinical Impression Clinical Impression: UTI (urinary tract infection), Constipation - Scribe Statement The provider has reviewed the documentation as recorded by the Birdie Pitt Kobi Provider Attestation: All medical record entries made by the Birdie were at my direction and personally dictated by me. I have reviewed the chart and agree that the record accurately reflects my personal performance of the history, physical exam, medical decision making, and the department course for this patient. I have also personally directed, reviewed, and agree with the discharge instructions and disposition.
[2018-03-03 18:16] LABS: URINE AMORPHOUS SEDIMENT RARE /ul (<OCC); URINE BACTERIA RARE (<OCC); URINE BILIRUBIN NEGATIVE (NEGATIVE); URINE BLOOD NEGATIVE (NEGATIVE); URINE CLARITY Hazy (Clear); URINE COLOR Yellow (YELLOW); URINE GLUCOSE (UA) 1+ mg/dL (Normal); URINE LEUKOCYTE ESTERASE NEG Leu/uL (Negative); URINE PROTEIN NEGATIVE (NEGATIVE); URINE UROBILINOGEN NORMAL mg/dL (0.2-1.0)
[2018-03-03 18:20] LABS: B-TYPE NATRIURETIC PEPTIDE 125 pg/mL (0-900); CK-MB 0.44 ng/mL (0.0-3.38)
[2018-03-03 18:41] VITALS: BP 154/68; PULSE 68; RESP 18
[2018-03-03 18:49] VITALS: O2SAT 97
--- NOTE | 2018-03-04 09:42 | RAD ---
Date of service: The the the the the the the the the the 03/03/2018 PROCEDURE: Radiographs of the chest and abdomen (obstructive series) HISTORY: Abd Pain, constipation COMPARISON: Made with CTA chest dated 11/24/2017 TECHNIQUE: AP radiograph of the chest, with upright and supine radiographs of the abdomen. FINDINGS: CHEST: Heart appears enlarged. Mild bibasilar atelectasis left greater than right. Previously noted small 5 mm nodule left lingular region not appreciated on this study. There is a mild levoscoliosis centered in the mid thoracic region ABDOMEN AND PELVIS: No evidence of free intraperitoneal air seen under the diaphragmatic surfaces. No evidence of acute mechanical bowel obstruction. There is moderate amount of stool seen within the distal descending sigmoid and rectum consistent with fecal retention/constipation. . IMPRESSION: Bibasilar atelectasis left greater than right. Findings consistent with constipation. No evidence of acute mechanical bowel obstruction.
== END 2018-03-03 18:51 | disposition home or self-care (01) ==
LOC: C.ER 16:28
DX: N39.0 Urinary tract infection, site not specified (principal); K59.00 Constipation, unspecified

== ENCOUNTER 2018-04-16 20:09 | Inpatient (IN) | payer MEDICARE, MEDICAID ==
[2018-04-16 20:24] LABS: BASO # 0.3 K/uL (0.0-0.2); BASO % 1.3 % (0.0-2.0); EOS # 0.1 K/uL (0.0-0.7); EOS % 0.5 % (0.0-4.0); HEMOGLOBIN 13.5 g/dL (11.0-16.0); LYMPH # 2.9 K/uL (1.0-4.3); LYMPH % 14.2 % (20.0-40.0); MEAN CELL VOLUME 85.5 fL (81.0-99.0); MEAN CORPUSCULAR HEMOGLOBIN 29.7 pg (27.0-31.0); MEAN CORPUSCULAR HGB CONC 34.7 g/dL (33.0-37.0); MEAN PLATELET VOLUME 8.8 fL (7.2-11.7); MONO # 1.3 K/uL (0.0-0.8); MONO % 6.2 % (0.0-10.0); NEUT # 16.1 K/uL (1.8-7.0); NEUT % 77.8 % (50.0-75.0); RBC 4.54 Mil/uL (3.80-5.20); RED CELL DISTRIBUTION WIDTH 13.3 % (11.5-14.5); WHITE BLOOD COUNT 20.7 K/uL (4.8-10.8)
[2018-04-16 20:32] LABS: INR 1.2; PROTHROMBIN TIME 13.4 SECONDS (9.7-12.2)
[2018-04-16 20:34] LABS: ALB/GLOB RATIO 1.3 (1.0-2.1); ALBUMIN 4.6 g/dL (3.5-5.0); ALT/SGPT 20 U/L (9-52); AST/SGOT 19 U/L (14-36); BLOOD UREA NITROGEN 17 mg/dL (7-17); CALCIUM 9.7 mg/dl (8.6-10.4); GFR NON-AFRICAN AMERICAN > 60; HDL CHOLESTEROL 42 mg/dL (30-70)
[2018-04-16 20:45] LABS: LDL CHOLESTEROL 61 mg/dL (0-129)
--- NOTE | 2018-04-16 21:03 | C.PDOC ---
History Of Present Illness 77 year old female is brought to the ED by family for evaluation of change in mental status that started at 08:00. Patient arrived to the ED at approximately 20:00. Family reports symptoms are progressively worsening, has trouble finding words, slurred speech. Patient has left over left facial droop, left arm and leg weakness from a previous CVA. Patient denies headache, dizziness, nausea, vomit, new injury, fall, trauma. Time Seen by Provider: 04/16/18 20:16 Chief Complaint (Nursing): Weakness/Neurological Deficit History Per: Patient, Family History/Exam Limitations: clinical condition Onset/Duration Of Symptoms: Hrs Current Symptoms Are (Timing): Still Present Activity At Onset Of Symptoms: Standing Associated Symptoms Preceding Syncopal Episode: Other Seizure Or Post-ictal Symptoms: None Fall Associated With With Symptoms: No Severity: None Recent travel outside of the [place]: No Additional History Per: Family Past Medical History Reviewed: Historical Data, Nursing Documentation, Vital Signs Vital Signs: Last Vital Signs Temp 100.6 F H 04/16/18 20:10 Pulse 90 04/16/18 20:10 Resp 18 04/16/18 20:10 BP 132/64 04/16/18 20:10 Pulse Ox 96 04/16/18 20:10 - Medical History PMH: Atrial Fibrillation, CAD, CVA, Depression, Diabetes, HTN, Hypercholesterolemia Surgical History: CABG, Coronary Stent - [facility] GROUP PSYCHOTHERAPY (12/12/17) INDIVIDUAL PSYCHOTHERAPY, BEHAVIORAL (12/12/17) Family History: States: Unknown Family Hx - Social History Hx Tobacco Use: No Hx Alcohol Use: Yes (hx of social drinking) Hx Substance Use: No - Immunization History Hx Tetanus Toxoid Vaccination: No Hx Influenza Vaccination: Yes Hx Pneumococcal Vaccination: Yes Review Of Systems Constitutional: Negative for: Fever, Chills Eyes: Negative for: Vision Change Cardiovascular: Negative for: Chest Pain Respiratory: Negative for: Shortness of Breath Gastrointestinal: Negative for: Nausea, Vomiting Neurological: Positive for: Altered Mental Status. Negative for: Weakness, Numbness, Dizziness Physical Exam - Physical Exam Appears: Non-toxic, No Acute Distress Skin: Normal Color, Warm, Dry Head: Atraumatic, Normacephalic, Other (mild left facial droop, baseline) Eye(s): bilateral: Normal Inspection, PERRL, EOMI Neck: Normal ROM, Supple Chest: Symmetrical Cardiovascular: Rhythm Regular Respiratory: Normal Breath Sounds, No Rales, No Rhonchi, No Wheezing Gastrointestinal/Abdominal: Soft, No Tenderness, No Guarding, No Rebound Extremity: Normal ROM Neurological/Psych: Oriented x3, No Normal Motor (baseline left arm and left leg weakness), Other (trouble finding words, able to follow commands correctly) Gait: Unable To Assess ED Course And Treatment - Laboratory Results Result Diagrams: 04/16/18 20:17 04/16/18 20:17 Lab Interpretation: Abnormal (leukocytosis of ? etiology, UA neg.) ECG: Interpreted By Me ECG Rhythm: Sinus Rhythm ECG Interpretation: Normal Rate From EC O2 Sat by Pulse Oximetry: 96 (ON RA) Pulse Ox Interpretation: Normal - Radiology CXR: Interpreted by Me CXR Interpretation: Yes: No Acute Disease - CT Scan/US CT head Other Rad Studies (CT/US): Read By Radiologist, Radiology Report Reviewed CT/US Interpretation: IMPRESSION: No acute intracranial abnormality. Extensive periventricular white matter ischemic changes particularly at the right anterior parietal region. Old infarct in the left occipital and right frontal lobes. No acute hemorrhage. Follow-up study for comparison and change is recommended. Findings communicated to Dr. Garcia 8-50pm EST. . Electronically signed on Apr 16, 2018 9:17:16 PM EDT by: Scott Phelps M.D., NICKI Certified By ABR & CBC[employer]. Fellowship Trained MRI and CT Specialist Reevaluation Time: 22:29 Reassessment Condition: Improved (@ baseline per family @ bedside) - Physician Consult Information Outcome Of Conversation: 2230: d/w yefri Hensley to admit. NIHSS Stroke Scale 2 - Date/Time Evaluation Performed Date Performed: 04/16/18 Time Performed: 20:00 When Was NIHSS Performed: Baseline - How Severe is the Stroke Level of Consciousness: 0=Alert LOC to Questions: 2=Neither correct LOC to commands: 1=Obeys one correctly Best Gaze: 0=Normal Visual: 0=No visual loss Facial: 1=Minor asymmetry (unchanged from prior mild L facial droop) Motor Arm - Left: 3=No effort against gravity (falls immediately) Motor Arm - Right: 0=No drift Motor Leg - Left: 3=No effort against gravity (falls immediately) Motor Leg - Right: 0=No drift Limb Ataxia: 0=Absent Sensory: 0=Normal Best Language: 1=Mild to moderate aphasia Dysarthia: 1=Mild to moderate slurring Extinction & Inattention (Neglect): 0=Normal, no object Score: 12 rTPA Inclusion/Exclusion - Refusal of Treatment Patient Refused Treatment: No - Inclusion Criteria for Altepase Patient is 18 years or Older: No The Clinical Diagnosis of Ischemic Stroke That is Causing a Potentially Disabling Neurological Deficit: Yes Time of Onset is Well Established to be Less Than 270 Minute Before Treatment Would Begin: No Risk/Benefit Discussed With Patient/Family Member Present: No - Exclusion Criteria for Altepase Uncontrolled Hypertension at Time of Treatment (Systolic BP above 185 or Diastolic BP above 110 mmHg): No Known Bleeding Diathesis Including but Not Limited to: Platelets Below 100,00 0/mm,PTT Above 40 sec After Heparin Use, Current Use of Oral Anitcoagulant With INR Greater Than 1.7 or PT Greater Than 15 secs: No Evidence of an Intracranial Hemorrhage: No Evidence of Major Acute Infarct With Signs Greater Than 1/3 MCA Territory: No Suspicion of Subarachnoid Hemorrhage on Pretreatment Evaluation Even if CT Head Negative For Hemorrhage: No - Warning to TPA With Conditions Following Conditions Weighed Against Anticipated Benefit: No Condition: Age Greater Than 75 years Medical Decision Making Medical Decision Making: Plan: * CT head * Labs * CXR * EKG * UA Code stroke called at 20:10. slurred speech and confusion since this morning approx 8AM, gradually worstening during the day. no new physical neurological deficit noted. Takes ASA and Plavix, taken this AM- defer ED dose. ddx: TIA vs new sub-acute stroke no uti Disposition Doctor Will See Patient In The: Hospital Counseled Patient/Family Regarding: Studies Performed, Diagnosis - Disposition Disposition: HOSPITALIZED Disposition Time: 22:30 Condition: GOOD - Clinical Impression Clinical Impression: Confusion and disorientation, Slurred speech - Scribe Statement The provider has reviewed the documentation as recorded by the Scribe Kyler Rodgers All medical record entries made by the Scribe were at my direction and personally dictated by me. I have reviewed the chart and agree that the record accurately reflects my personal performance of the history, physical exam, medical decision making, and the department course for this patient. I have also personally directed, reviewed, and agree with the discharge instructions and disposition.
[2018-04-16 22:03] LABS: SQUAMOUS EPITHIAL 1 /hpf (0-5); URINE BACTERIA RARE (<OCC); URINE BILIRUBIN NEGATIVE (NEGATIVE); URINE BLOOD NEGATIVE (NEGATIVE); URINE CLARITY Clear (Clear); URINE COLOR Yellow (YELLOW); URINE GLUCOSE (UA) NORMAL (Normal); URINE LEUKOCYTE ESTERASE NEG Leu/uL (Negative); URINE PROTEIN 1+ mg/dL (NEGATIVE)
[2018-04-16] MEDS ORDERED: Dextrose 50% SYRINGE Inj (50 ml) IV PRN (23:58)
[2018-04-16] MEDS ORDERED: Glucagon Recombinant 1 mg Inj IM PRN (23:58)
[2018-04-17] MEDS: Dextrose 5%/0.45% NS 1,000 ML IV SCH ×2 (00:05→16:10)
[2018-04-17 05:55] LABS: BASO # 0.2 K/uL (0.0-0.2); EOS # 0.1 K/uL (0.0-0.7); EOS % 0.9 % (0.0-4.0); HEMOGLOBIN 11.1 g/dL (11.0-16.0); LYMPH # 3.1 K/uL (1.0-4.3); LYMPH % 18.9 % (20.0-40.0); MEAN CELL VOLUME 85.2 fL (81.0-99.0); MEAN CORPUSCULAR HEMOGLOBIN 29.6 pg (27.0-31.0); MEAN CORPUSCULAR HGB CONC 34.8 g/dL (33.0-37.0); MEAN PLATELET VOLUME 8.6 fL (7.2-11.7); MONO # 1.4 K/uL (0.0-0.8); MONO % 8.3 % (0.0-10.0); NEUT # 11.8 K/uL (1.8-7.0); NEUT % 70.9 % (50.0-75.0); RBC 3.75 Mil/uL (3.80-5.20); RED CELL DISTRIBUTION WIDTH 13.4 % (11.5-14.5); WHITE BLOOD COUNT 16.6 K/uL (4.8-10.8)
[2018-04-17 06:31] LABS: ALB/GLOB RATIO 1.1 (1.0-2.1); ALBUMIN 3.4 g/dL (3.5-5.0); ALT/SGPT 24 U/L (9-52); AST/SGOT 11 U/L (14-36); BLOOD UREA NITROGEN 17 mg/dL (7-17); CALCIUM 8.7 mg/dl (8.6-10.4); GFR NON-AFRICAN AMERICAN 54
[2018-04-17] MEDS: (Novolog) Insulin Aspart, Recombinant 100 u/ml 10 ml vial SC SCH ×4 (08:12→22:28)
--- NOTE | 2018-04-17 08:22 | CT ---
Date of service: 04/16/2018 PROCEDURE: CT HEAD WITHOUT CONTRAST. HISTORY: Code Stroke COMPARISON: 02/06/2018 TECHNIQUE: Axial computed tomography images were obtained through the head/brain without intravenous contrast. Radiation dose: Total exam DLP = 984 mGy-cm. This CT exam was performed using one or more of the following dose reduction techniques: Automated exposure control, adjustment of the mA and/or kV according to patient size, and/or use of iterative reconstruction technique. FINDINGS: HEMORRHAGE: No intracranial hemorrhage. BRAIN: No mass effect or edema. Scattered focal lucencies in the subcortical and periventricular white matter suggestive for chronic microvascular ischemic change. Prominent focal areas of chronic encephalomalacia seen within the left posterior occipital lobe as well as scattered areas of encephalomalacia noted within the right frontal and parietal subcortical white matters. Bilateral basal ganglia lacunar infarcts. VENTRICLES: Prominent. CALVARIUM: Unremarkable. PARANASAL SINUSES: Unremarkable as visualized. No significant inflammatory changes. MASTOID AIR CELLS: Unremarkable as visualized. No inflammatory changes. OTHER FINDINGS: Intracranial arterial calcifications. IMPRESSION: No acute intracranial abnormality. Chronic areas of encephalomalacia as described above. Chronic microvascular ischemic change. Prominent ventricles. If symptoms persists, consider correlation with MRI. These findings were preliminarily reported at 9:17 p.m. on 04/16/[address] Scott Phelps from [email or web address].
--- NOTE | 2018-04-17 09:47 | RAD ---
Chest x-ray single frontal view HISTORY: Code stroke. COMPARISON: 11/24/2017 FINDINGS: No focal infiltrate or effusion. Calcification at the aortic knob. Right paratracheal prominence likely represents prominent vasculature. Tortuous aorta. Mild cardiomegaly. Degenerative changes in the spine. Impression: No focal infiltrate or effusion.
--- NOTE | 2018-04-17 09:59 | CP.PCM.CON ---
<Marc Lopez - Last Filed: 04/18/18 09:09> History of Present Illness - History of Present Illness History of Present Illness: PGY1 Neurology Consult Note for Dr. Juan This is a 77-year-old Female with past medical history of CVA 2X (10/12/17 and 10/19/17, 6 weeks at [facility]) with left sided weakness, CAD (2 stent placement 2010 at [facility]), HTN, DM and HLD, bilateral glaucoma correction, who was referred to us by ED physician for CODE STROKE. Patient was at bedside with her daughters and granddaughter who assisted in obtaining history with the patient's permission. Patient's daughter reports that the patient was "seeing things" earlier Monday morning, and that she appeared more confused than normal. however, patient was mildly coherent Monday morning. As per daughter, the patient recently began attending adult day care, and she was able to attend on Monday, however a family member states she was "sluggish" and was unable to communicate as she normally does. Subsequently, the family member states the patient was unable to swallow her medications. Per daughter, the patient denied taking her medication that morning and explained that she "couldn't swallow." ROS is significant for sick contact at home (family member has pneumonia) fever 100.5 and pale skin, and otherwise negative for chest pain, shortness of breath, nausea, vomiting, and/or headache. Of note, a code stroke was called in the ED. Review of Systems - Review of Systems All systems: reviewed and no additional remarkable complaints except - Constitutional Constitutional: As Per HPI - EENT Eyes: As Per HPI - Cardiovascular Cardiovascular: As Per HPI - Respiratory Respiratory: As Per HPI - Musculoskeletal Musculoskeletal: As Per HPI - Neurological Neurological: As Per HPI Past Patient History - Infectious Disease Hx of Infectious Diseases: None - Past Social History Smoking Status: Never Smoked - CARDIAC Hx Hypercholesterolemia: Yes Hx Hypertension: Yes - NEUROLOGICAL HX Cerebrovascular Accident: Yes (left side weaknes.) - ENDOCRINE/METABOLIC Hx Diabetes Mellitus Type 2: Yes - MUSCULOSKELETAL/RHEUMATOLOGICAL Hx Falls: Yes - PSYCHIATRIC Hx Depression: Yes Hx Substance Use: No - SURGICAL HISTORY Hx Coronary Artery Bypass Graft: Yes Hx Coronary Stent: Yes - ANESTHESIA Hx Anesthesia: Yes Hx Anesthesia Reactions: No Meds Allergies/Adverse Reactions: Allergies Allergy/AdvReac Type Severity Reaction Status Date / Time lactose AdvReac DIARRHEA Verified 04/16/18 20:13 - Medications Medications: Current Medications Aspirin (Aspirin Chewable) 81 mg PO DAILY [facility] Dextrose (Dextrose 50% Inj) 0 ml IV STAT PRN; Protocol PRN Reason: Hypoglycemia Protocol Dextrose (Glutose 15) 0 gm PO ONCE PRN; Protocol PRN Reason: Hypoglycemia Protocol Glucagon (Glucagen Diagnostic Kit) 0 mg IM STAT PRN; Protocol PRN Reason: Hypoglycemia Protocol Dextrose/Sodium Chloride (Dextrose 5%/0.45% Ns 1000 Ml) 1,000 mls @ 80 mls/hr IV .[id number] [facility] Last Admin: 04/17/18 00:05 Dose: 80 mls/hr Dextrose (Dextrose 5% In Water 1000 Ml) 1,000 mls @ 0 mls/hr IV .Q0M PRN; Protocol PRN Reason: Hypoglycemia Protocol Insulin Aspart (Novolog) 0 unit SC ACHS [facility]; Protocol Last Admin: 04/17/18 08:12 Dose: Not Given Rosuvastatin Calcium (Crestor) 10 mg PO HS [facility] Physical Exam - Constitutional Appears: Non-toxic, No Acute Distress - Head Exam Head Exam: ATRAUMATIC, NORMAL INSPECTION, NORMOCEPHALIC - Eye Exam Eye Exam: EOMI, Normal appearance, PERRL Pupil Exam: NORMAL ACCOMODATION - Neurological Exam Neurological exam: Alert, CN II-XII Intact, Reflexes Normal Additional comments: oriented to person and place but not to name of hospital. - Expanded Neurological Exam Expanded Speech: Fluid Speech Cranial nerves: EOM's Intact: Normal, Facial Palsey w/Forehead Movement: Normal, Facial Palsey w/o Forehead Movement: Normal, Facial Sensation: Normal, Nystagmus: Normal Cerebellar Function: Finger to Nose: Normal, Abnormal Left (paralyzed left upper extremity ) Upper motor neuron: Lance Neglect: Normal, Pronator Drift: Normal, Sensory Extinction: Normal Sensory exam: Lower Extremity 2 Point Discrimination: Normal, Lower Extremity Light Touch: Normal, Lower Extremity Pin Prick: Normal, Lower Extremity Temperature: Normal, Upper Extremity 2 Point Discrimination: Normal, Upper Extremity Light Touch: Normal, Upper Extremity Pin Prick: Normal, Upper Extremity Temperature: Normal Neuro motor strength exam: Left Upper Extremity: 0 (chronic (s/p CVA) ), Right Upper Extremity: 4, Left Lower Extremity: 0 (chronic (s/p CVA) ), Right Lower Extremity: 4 DTR: Brachioradialis Left: 2+, Brachioradialis Right: 2+, Patellar Left: 2+, Patellar Right: 2+ - Psychiatric Exam Psychiatric exam: Normal Affect, Normal Mood - Skin Skin Exam: Dry, Intact, Normal Color Results - Vital Signs Recent Vital Signs: Last Vital Signs Temp 98.3 F 04/17/18 08:15 Pulse 88 04/17/18 08:15 Resp 18 04/17/18 08:15 BP 125/48 L 04/17/18 08:15 Pulse Ox 99 04/17/18 08:15 - Labs Result Diagrams: 04/18/18 07:22 04/18/18 07:22 Labs: Laboratory Results - last 24 hr 04/16/18 04/16/18 04/16/18 20:17 20:17 20:17 WBC 20.7 H D RBC 4.54 Hgb 13.5 Hct 38.8 MCV 85.5 MCH 29.7 MCHC 34.7 RDW 13.3 Plt Count 255 MPV 8.8 Neut % (Auto) 77.8 H Lymph % (Auto) 14.2 L [place] % (Auto) 6.2 Eos % (Auto) 0.5 Baso % (Auto) 1.3 Neut # (Auto) 16.1 H Lymph # (Auto) 2.9 [place] # (Auto) 1.3 H Eos # (Auto) 0.1 Baso # (Auto) 0.3 H PT 13.4 H INR 1.2 APTT 32 Sodium 140 Potassium 3.9 Chloride 103 Carbon Dioxide 21 L Anion Gap 20 BUN 17 Creatinine 0.8 Est GFR ( Amer) > 60 Est GFR (Non-Af Amer) > 60 POC Glucose (mg/dL) Random Glucose 170 H Hemoglobin A1c Calcium 9.7 Total Bilirubin 0.6 AST 19 ALT 20 Alkaline Phosphatase 103 Ammonia Troponin I < 0.0120 Total Protein 8.2 Albumin 4.6 Globulin 3.6 Albumin/Globulin Ratio 1.3 Triglycerides 159 H Cholesterol 122 LDL Cholesterol Direct 61 HDL Cholesterol 42 Urine Color Urine Clarity Urine pH Ur Specific Mcalister Urine Protein Urine Glucose (UA) Urine Ketones Urine Blood Urine Nitrate Urine Bilirubin Urine Urobilinogen Ur Leukocyte Esterase Urine WBC (Auto) Urine RBC (Auto) Ur Squamous Epith Cells Urine Bacteria Blood Type Antibody Screen 04/16/18 04/16/1804/16/18 20:17 20:17 21:50 WBC RBC Hgb Hct MCV MCH MCHC RDW Plt Count MPV Neut % (Auto) Lymph % (Auto) [place] % (Auto) Eos % (Auto) Baso % (Auto) Neut # (Auto) Lymph # (Auto) [place] # (Auto) Eos # (Auto) Baso # (Auto) PT INR APTT Sodium Potassium Chloride Carbon Dioxide Anion Gap BUN Creatinine Est GFR ( Amer) Est GFR (Non-Af Amer) POC Glucose (mg/dL) Random Glucose Hemoglobin A1c 7.8 H Calcium Total Bilirubin AST ALT Alkaline Phosphatase Ammonia Troponin I Total Protein Albumin Globulin Albumin/Globulin Ratio Triglycerides Cholesterol LDL Cholesterol Direct HDL Cholesterol Urine Color Yellow Urine Clarity Clear Urine pH 5.0 Ur Specific [place] 1.027 Urine Protein 1+ H Urine Glucose (UA) Normal Urine Ketones Trace Urine Blood Negative Urine Nitrate Negative Urine Bilirubin Negative Urine Urobilinogen 2.0 H Ur Leukocyte Esterase Neg Urine WBC (Auto) 1 Urine RBC (Auto) 2 Ur Squamous Epith Cells 1 Urine Bacteria Rare Blood Type A POSITIVE Antibody Screen Negative 04/17/18 04/17/18 04/17/18 05:52 05:52 05:52 WBC 16.6 H RBC 3.75 L Hgb 11.1 D Hct 32.0 L MCV 85.2 MCH 29.6 MCHC 34.8 RDW 13.4 Plt Count 215 MPV 8.6 Neut % (Auto) 70.9 Lymph % (Auto) 18.9 L [place] % (Auto) 8.3 Eos % (Auto) 0.9 Baso % (Auto) 1.0 Neut # (Auto) 11.8 H Lymph # (Auto) 3.1 [place] # (Auto) 1.4 H Eos # (Auto) 0.1 Baso # (Auto) 0.2 PT INR APTT Sodium 139 Potassium 3.5 L Chloride 103 Carbon Dioxide 23 Anion Gap 17 BUN 17 Creatinine 1.0 Est GFR ( Amer) > 60 Est GFR (Non-Af Amer) 54 POC Glucose (mg/dL) Random Glucose 144 H Hemoglobin A1c Calcium 8.7 Total Bilirubin 0.6 AST 11 L D ALT 24 Alkaline Phosphatase 74 Ammonia 10 Troponin I Total Protein 6.4 Albumin 3.4 L D Globulin 3.0 Albumin/Globulin Ratio 1.1 Triglycerides Cholesterol LDL Cholesterol Direct HDL Cholesterol Urine Color Urine Clarity Urine pH Ur Specific [place] Urine Protein Urine Glucose (UA) Urine Ketones Urine Blood Urine Nitrate Urine Bilirubin Urine Urobilinogen Ur Leukocyte Esterase Urine WBC (Auto) Urine RBC (Auto) Ur Squamous Epith Cells Urine Bacteria Blood Type Antibody Screen 04/17/18 08:04 WBC RBC Hgb Hct MCV MCH MCHC RDW Plt Count MPV Neut % (Auto) Lymph % (Auto) [place] % (Auto) Eos % (Auto) Baso % (Auto) Neut # (Auto) Lymph # (Auto) [place] # (Auto) Eos # (Auto) Baso # (Auto) PT INR APTT Sodium Potassium Chloride Carbon Dioxide Anion Gap BUN Creatinine Est GFR ( Amer) Est GFR (Non-Af Amer) POC Glucose (mg/dL) 118 H Random Glucose Hemoglobin A1c Calcium Total Bilirubin AST ALT Alkaline Phosphatase Ammonia Troponin I Total Protein Albumin Globulin Albumin/Globulin Ratio Triglycerides Cholesterol LDL Cholesterol Direct HDL Cholesterol Urine Color Urine Clarity Urine pH Ur Specific [place] Urine Protein Urine Glucose (UA) Urine Ketones Urine Blood Urine Nitrate Urine Bilirubin Urine Urobilinogen Ur Leukocyte Esterase Urine WBC (Auto) Urine RBC (Auto) Ur Squamous Epith Cells Urine Bacteria Blood Type Antibody Screen Assessment & Plan - Assessment and Plan (Free Text) Assessment: Confusion and disorientation likely due to Vascular Dementia - The patient does not appear to have suffered from a new CVA, as her symptoms are chronic, and there are no new infarctions appreciated on imaging (see report below) - Patient's symptoms are chronic in nature and possibly exacerbated by infection, as patient came in with leukocytosis WBC=20, Tmax: 100.6 - I recommend increasing fluid up to 125cc per hour if patient is still NPO or cannot increase fluid intake - Lipid Panel: TGL: 159, Chol:122, LDL:61 and HDL:42 - Continue ASA 81 mg PO daily and plavix 75mg PO daily Imaging: Chest X-ray: No focal infiltrate or effusion. Calcification at the aortic knob. Right paratracheal prominence likely represents prominent vasculature. Tortuous aorta. Mild cardiomegaly. Degenerative changes in the spine. HEAD CT: No acute intracranial abnormality. Chronic areas of encephalomalacia as described above. Chronic microvascular ischemic change. Prominent ventricles. If symptoms persists, consider correlation with MRI. Head MRI: Chronic infarcts identified in the right frontal lobe as well as left parietal occipital lobe with a small chronic infarct reiterated at the right occipital lobe. Occluded right ICA identified. No definite acute or subacute brain infarction identified at this time. Chronic lacune left thalamus. Two chronic lacunae at the right cerebellum superiorly. 2. Reiterated age related neuro degenerative findings. 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 Right MARS and MCA at least partially collateralized by flow through the anterior communicating artery. Changes in collateralization can be correlated by repeat CTA head and neck if clinically warranted. 2. High-grade stenosis proximal basilar artery suggested this can also be correlated with CTA head and neck. 3. High-grade stenosis questioned at the mid cavernous left ICA, not previously shown. Echocardiogram (11/27/17): LV normal size, Mild concentric left ventricular hypertrophy and systolic function mildly impaired. Refer to the EMR for complete Neck MRA: Will follow up on results ECHO repeat: will follow up on results Please do not hesitate to call back with any new developments, data updates or questions. Thank you for the opportunity to participate in the care of this patient. Patient seen and case discussed in detail with Dr. Yessica Lopez PGY1 <Bernardino Juan - Last Filed: 04/24/18 04:07> Results - Vital Signs Recent Vital Signs: Last Vital Signs Temp 98.7 F 04/23/18 07:00 Pulse 56 L 04/23/18 07:06 Resp 20 04/23/18 07:00 BP 161/71 H 04/23/18 07:00 Pulse Ox 94 L 04/23/18 07:00 - Labs Result Diagrams: 04/23/18 06:07 04/23/18 06:07 Labs: Laboratory Results - last 24 hr 04/21/18 04/22/18 04/22/18 21:05 06:14 11:35 WBC RBC Hgb Hct MCV MCH MCHC RDW Plt Count MPV Neut % (Auto) Lymph % (Auto) [place] % (Auto) Eos % (Auto) Baso % (Auto) Neut # (Auto) Lymph # (Auto) [place] # (Auto) Eos # (Auto) Baso # (Auto) Sodium Potassium Chloride Carbon Dioxide Anion Gap BUN Creatinine Est GFR ( Amer) Est GFR (Non-Af Amer) POC Glucose (mg/dL) 191 H 160 H 139 H Random Glucose Calcium Phosphorus Magnesium Total Bilirubin AST ALT Alkaline Phosphatase Total Protein Albumin Globulin Albumin/Globulin Ratio 04/22/18 04/22/18 04/23/18 16:40 21:37 06:07 WBC 9.3 RBC 3.66 L Hgb 10.8 L Hct 30.7 L MCV 83.9 MCH 29.5 MCHC 35.1 RDW 13.0 Plt Count 281 MPV 7.9 Neut % (Auto) 53.1 Lymph % (Auto) 29.0 [place] % (Auto) 10.5 H Eos % (Auto) 6.6 H Baso % (Auto) 0.8 Neut # (Auto) 4.9 Lymph # (Auto) 2.7 [place] # (Auto) 1.0 H Eos # (Auto) 0.6 Baso # (Auto) 0.1 Sodium Potassium Chloride Carbon Dioxide Anion Gap BUN Creatinine Est GFR ( Amer) Est GFR (Non-Af Amer) POC Glucose (mg/dL) 159 H 160 H Random Glucose Calcium Phosphorus Magnesium Total Bilirubin AST ALT Alkaline Phosphatase Total Protein Albumin Globulin Albumin/Globulin Ratio 04/23/18 04/23/18 04/23/18 06:07 06:39 11:40 WBC RBC Hgb Hct MCV MCH MCHC RDW Plt Count MPV Neut % (Auto) Lymph % (Auto) [place] % (Auto) Eos % (Auto) Baso % (Auto) Neut # (Auto) Lymph # (Auto) [place] # (Auto) Eos # (Auto) Baso # (Auto) Sodium 143 Potassium 3.3 L Chloride 108 H Carbon Dioxide 25 Anion Gap 14 BUN 6 L Creatinine 0.6 L Est GFR ( Amer) > 60 Est GFR (Non-Af Amer) > 60 POC Glucose (mg/dL) 133 H 169 H Random Glucose 139 H Calcium 9.2 Phosphorus 3.8 Magnesium 1.7 Total Bilirubin 0.3 AST 21 ALT 43 Alkaline Phosphatase 118 Total Protein 6.8 Albumin 3.5 Globulin 3.2 Albumin/Globulin Ratio 1.1 Attending/Attestation - Attestation I have personally seen and examined this patient.: Yes I have fully participated in the care of the patient.: Yes I have reviewed all pertinent clinical information: Yes Notes (Text): 04/24/18 04:06 I agree with the assessment and plan. The patient likely has vascular dementia. Will continue conservative management and work-up. Thank you.
[2018-04-17 13:24] VITALS: RESP 20
--- NOTE | 2018-04-17 13:47 | MRI ---
Date of service: 04/17/2018 PROCEDURE: MRI BRAIN WITHOUT CONTRAST HISTORY: possible new stroke COMPARISON: Noncontrast brain MRI 11/25/2017. TECHNIQUE: Multiplanar, multisequence MR images of the brain were obtained without intravenous contrast enhancement. FINDINGS: Limitations: Motion artifacts limit exam somewhat. HEMORRHAGE: None DWI: No definite evidence of an acute or early subacute infarction. BRAIN PARENCHYMA: A small chronic infarct at and a sub distribution of the left REGISTRATION SPECIALIST is identified affecting the left occipital lobe inferiorly and medially with an additional chronic infarct identified at the right parietal occipital junction as well. Diffuse cerebral atrophy chronic microangiopathy are identified. A sub distribution chronic infarct of the right MCA is appreciated with ex vacuo expansion of the right lateral ventricle apparent. Chronic lacune of left thalamus identified with infarct related degeneration of the right cerebral peduncle and right alcides jennifer. Two chronic lacunae at the right cerebellum superiorly. No suspicious extra-axial findings with midline brain anatomy unremarkable excluding the brainstem. VENTRICLES: No hydrocephalus. CRANIUM: Unremarkable. ORBITS: Grossly unremarkable. PARANASAL SINUSES/MASTOIDS: Clear VASCULAR SYSTEM: Flow void is clearly identified at the left cavernous ICA as well as the basilar artery but is not clearly evident at the right cavernous ICA which is concordant with evidence of occlusion of the right ICA in MR angiogram also performed 04/17/2018. Please separate report. OTHER FINDINGS: None. IMPRESSION: 1. Chronic infarcts identified in the right frontal lobe as well as left parietal occipital lobe with a small chronic infarct reiterated at the right occipital lobe. Occluded right ICA identified. No definite acute or subacute brain infarction identified at this time. Chronic lacune left thalamus. Two chronic lacunae at the right cerebellum superiorly. 2. Reiterated age related neuro degenerative findings.
--- NOTE | 2018-04-17 13:55 | CP.PCM.PN ---
Subjective - Date & Time of Evaluation Date of Evaluation: 04/17/18 Time of Evaluation: 08:45 - Subjective Subjective: Dr. 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 As per daughter, patient was doing well on Monday morning and family member noted hallucination and confusion, however, patient was mildly coherent Monday morning. As per daughter, patient had normal breakfast (Bread roll and butter) and went to her adult day program, however, when she was picked up by her niece to go to her day program, patient's niece noted that patient was more quite and sluggish. After arriving home at the day program, patient's daughter noted that patient was not her baseline and noted that patient was unable to swallow her medications and told her daughter in [place] that she is unable to swallow and feels like there is an object that is occluding her passage to swallow. Shortly after, patient's family member noted more sluggish movement, fever of 100.5 and pale skin, therefore, patient was brought to the ED. On arrival to the ED, a code stroke was called. During the encounter, as per family members at bedside, patient is more alert, awake, moderately oriented with gradual improvement with speech. Code Status: Do resuscitate and Do not intubate PMD: Dr. Bennie Lang PMHx: CVA 2X (10/12/17 and 10/19/17) with left sided weakness, CAD (2 stent placement), HTN, DM and HLD PSHx: Bilateral Glaucoma correction and tubal ligation FHx: -Maternal Grandmother: DM -Maternal Grandfather: Unknown cancer Medications: Risperidone 0.25mg PO HS, Mirtazapine 15mg PO HS, Glipizide 10mg PO daily, Plavix 75mg PO daily, Carvedilol 3.125mg PO BID, Cardizem CD 240mg PO QD Allergies: NKDA Social Hx: lives with daughter and son-in-law, denies Hx of current or former tobacco and illicit drug use, and admits to occasional ETOH use Objective - Vital Signs/Intake and Output Vital Signs (last 24 hours): Temp Pulse Resp BP Pulse Ox 97.6 F 65 20 132/55 L 99 04/17/18 13:23 04/17/18 13:23 04/17/18 13:23 04/17/18 13:23 04/17/18 13:23 - Medications Medications: Current Medications Aspirin (Aspirin Supp) 300 mg PA DAILY [facility] Last Admin: 04/17/18 10:44 Dose: 300 mg Clopidogrel Bisulfate (Plavix) 75 mg PO DAILY [facility] Last Admin: 04/17/18 11:42 Dose: Not Given Dextrose (Dextrose 50% Inj) 0 ml IV STAT PRN; Protocol PRN Reason: Hypoglycemia Protocol Dextrose (Glutose 15) 0 gm PO ONCE PRN; Protocol PRN Reason: Hypoglycemia Protocol Glucagon (Glucagen Diagnostic Kit) 0 mg IM STAT PRN; Protocol PRN Reason: Hypoglycemia Protocol Dextrose/Sodium Chloride (Dextrose 5%/0.45% Ns 1000 Ml) 1,000 mls @ 80 mls/hr IV .[id number] [facility] Last Admin: 04/17/18 00:05 Dose: 80 mls/hr Dextrose (Dextrose 5% In Water 1000 Ml) 1,000 mls @ 0 mls/hr IV .Q0M PRN; Protocol PRN Reason: Hypoglycemia Protocol Insulin Aspart (Novolog) 0 unit SC ACHS [facility]; Protocol Last Admin: 04/17/18 12:48 Dose: Not Given Rosuvastatin Calcium (Crestor) 10 mg PO HS [facility] - Labs Labs: 04/17/18 05:52 04/17/18 05:52 PT 13.4 SECONDS (9.7-12.2) H 04/16/18 20:17 INR 1.2 04/16/18 20:17 APTT 32 SECONDS (21-34) 04/16/18 20:17 - Constitutional Appears: No Acute Distress - Head Exam Head Exam: ATRAUMATIC - Eye Exam Eye Exam: EOMI. absent: Periorbital swelling, Periorbital tenderness Additional comments: Sluggish EOMI - ENT Exam ENT Exam: Mucous Membranes Dry - Respiratory Exam Respiratory Exam: Clear to Ausculation Bilateral, NORMAL BREATHING PATTERN. absent: Rhonchi, Wheezes, Respiratory Distress Additional comments: Limited - Cardiovascular Exam Cardiovascular Exam: REGULAR RHYTHM, +S1, +S2 - GI/Abdominal Exam GI & Abdominal Exam: Soft, Normal Bowel Sounds. absent: Firm, Guarding, Rigid, Tenderness - Extremities Exam Extremities Exam: Normal Inspection. absent: Calf Tenderness, Pedal Edema, Tenderness - Neurological Exam Neurological Exam: Alert, Awake, Oriented x3 Neuro motor strength exam: Left Upper Extremity: 0 (Chronic, s/p CVA 2011), Right Upper Extremity: 4, Left Lower Extremity: 0 (Chronic, s/p CVA 2011), Right Lower Extremity: 4 - Psychiatric Exam Psychiatric exam: Normal Affect - Skin Skin Exam: Normal Color Assessment and Plan (1) Confusion and disorientation Assessment & Plan: Neurohospitalist and Neurology, Dr. Redmond on board * Management as per recommendation R/O infection and CVA Febrile, Tmax: 100.6 Leukocytosis * Tylenol 325mg PA Q4H PRN for fever> 100.4 * UA is negative, F/U UC AND BC * Prophylactic antibiotics; Vancomycin 1gm IV daily and Zosyn 3.375gm IV Q8H * NS @ 100mls/hr Lipid Panel: - TGL: 159, Chol:122, LDL:61 and HDL:42 Chest X-ray: No focal infiltrate or effusion. Calcification at the aortic knob. Right paratracheal prominence likely represents prominent vasculature. Tortuous aorta. Mild cardiomegaly. Degenerative changes in the spine. HEAD CT: No acute intracranial abnormality. Chronic areas of encephalomalacia as described above. Chronic microvascular ischemic change. Prominent ventricles. If symptoms persists, consider correlation with MRI. Head MRI: Chronic infarcts identified in the right frontal lobe as well as left parietal occipital lobe with a small chronic infarct reiterated at the right occipital lobe. Occluded right ICA identified. No definite acute or subacute brain infarction identified at this time. Chronic lacune left thalamus. Two chronic lacunae at the right cerebellum superiorly. 2. Reiterated age related neuro degenerative findings. 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 Right MARS and MCA at least partially collateralized by flow through the anterior communicating artery. Changes in collateralization can be c orrelated by repeat CTA head and neck if clinically warranted. 2. High-grade stenosis proximal basilar artery suggested this can also be correlated with CTA head and neck. 3. High-grade stenosis questioned at the mid cavernous left ICA, not previously shown. Echocardiogram (11/27/17): LV normal size, Mild concentric left ventricular hypertrophy and systolic function mildly impaired. 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 2 stent placement; 2010 Plavix 75mg PO daily; held due to failed bedside swallow eval, F/u video barium swallow Carvedilol 3.125mg PO BID; held due to failed bedside swallow eval, f/u video barium swallow ASA 300mg PA daily Status: Acute (3) History of CVA (cerebrovascular accident) Assessment & Plan: Lipid Panel: - TGL: 159, Chol:122, LDL:61 and HDL:42 Plavix 75mg PO daily; held due to failed bedside swallow eval, F/u video barium swallow Crestor 10mg PO HS; held due to failed bedside swallow eval, F/u video barium swallow Crestor 10mg PO HS; ASA 300mg PA daily Status: Acute (4) Diabetes mellitus Assessment & Plan: HgbA1C: 7.8 Accuchecks ISS-Low dose Hypoglycemia protocol Status: Chronic (5) Hypertension Assessment & Plan: Currently controlled Home medication: * Cardizem CD 240mg PO QD, not initiated due to controlled BP and failed bedside swallow eval, F/u video barium swallow Status: Acute (6) Major depressive disorder with psychotic features Assessment & Plan: Home medications: * Risperidone 0.25mg PO HS * Mirtazapine 15mg PO HS * Not initiated due to failed bedside swallow eval, F/u video barium swallow Status: Chronic (7) Prophylactic measure Assessment & Plan: GI: Protonix 40 IV daily DVT: SCDs, Lovenox 40mg SC daily All plans and management discussed with Dr. Wu Status: Acute
--- NOTE | 2018-04-17 14:04 | MRI ---
Date of service: 04/17/2018 PROCEDURE: Magnetic Resonance Angiography Brain HISTORY: possible new stroke COMPARISON: Head and neck CT angiogram 11/25/2017. TECHNIQUE: 3D time of flight MR angiography of the intracranial arteries was performed. Rotating maximum intensity projection images were generated. FINDINGS: INTERNAL CAROTID ARTERIES: There is no detectable flow identified at the right cavernous or intra canalicular ICA. High-grade stenosis suggested at the mid cavernous left ICA with the left cavernous and intra canalicular ICA otherwise widely patent. ANTERIOR CEREBRAL ARTERIES: The anterior communicating as well as left A1 and A2 MARS anterior cerebral arteries are widely patent with cross-filling into the right A2 MARS segment. Mild cross-filling is seen into the right A1 MARS. MIDDLE CEREBRAL ARTERIES: The left M1 and M2 MCA branches appear widely patent with limited cross-filling noted into the right M1 and M2 MCA branches. The left posterior communicating artery appears patent with right posterior communicating artery not identified, potentially in origin, agenetic or occluded. POSTERIOR CIRCULATION: Basilar Artery: High-grade stenosis identified in the proximal basilar artery which is otherwise widely patent. Distal Vertebral Arteries: Unremarkable appearing distal right vertebral artery. Limited stenosis or hypoplasia of the distal left vertebral artery. Posterior Cerebral Arteries: Unremarkable as viewed by source images. Posterior Inferior Cerebellar Arteries: Unremarkable. ANEURYSM/ VASCULAR MALFORMATIONS: None. OTHER FINDINGS: None. IMPRESSION: 1. Occluded right ICA at the distal neck and skullbase segments once again evident as previously demonstrated in CT angiogram of the head and neck 11/25/2017. Right MARS and MCA at least partially collateralized by flow through the anterior communicating artery. Changes in collateralization can be correlated by repeat CTA head and neck if clinically warranted. 2. High-grade stenosis proximal basilar artery suggested this can also be correlated with CTA head and neck. 3. High-grade stenosis questioned at the mid cavernous left ICA, not previously shown.
[2018-04-17] MEDS: Enoxaparin 30 mg Syringe SC SCH (17:35)
[2018-04-17] MEDS: Potassium Chloride 40 MEQ in Dextrose 5%/0.45% NS 1,000 ML IV SCH (17:37)
[2018-04-17] MEDS: Piperacillin/Tazobact 3.375 GM in Sodium Chloride 100 ML IVPB SCH (17:38)
[2018-04-17] MEDS: Vancomycin 1 gm/NS 200 ml 1 GM/200 ML BAG IVPB SCH (17:39)
--- NOTE | 2018-04-17 18:11 | CP.PCM.CON ---
<Suri Alvarez - Last Filed: 04/17/18 18:39> History of Present Illness - History of Present Illness History of Present Illness: Cardiology Consult Note 77 year old [place] female with past medical of AFib, CAD s/p 2 stents, CVA x2, DM, HTN, and HLD that presents with change in mental status, slurred speech, and left upper and lower extremity weakness. Patient's grand-daughter found josee ent in altered mental status around 12pm yesterday and noticed that she could not find the words to talk to her, which is very unlike her. Patient has a history of previous CVA which has caused residual weakness to the left upper and lower extremity, however this time patient complained of new-onset numbness, dark spots in the right eye, and a right sided headache. Denies chest pain but daughter mentions that patient gets shortness of breath after trying to move extremities which is new, her daughter also mentions that she was not moving her right arm or leg yesterday which has now improved. She denies, chills, dizziness, nausea, vomiting, diarrhea, recent trauma, chest pain, or palpitations. PMD: Dr. Lang, Cardio: Dr. Otero ([facility]) PMH: AFib, CAD, CVA, depression, diabetes, HTN, HLD PSHx: Coronary stents Allergy: NKDA FHx: unknown Social Hx: denies tabaco use, drinks alcohol socially, denies use of drug use, lives with her children in a house Medications: Risperidone, Mirtazapine, Glipizide, Plavix, Carvedilol, and Cardizem Past Patient History - Infectious Disease Hx of Infectious Diseases: None - Past Social History Smoking Status: Never Smoked - CARDIAC Hx Hypercholesterolemia: Yes Hx Hypertension: Yes - NEUROLOGICAL HX Cerebrovascular Accident: Yes (left side weaknes.) - ENDOCRINE/METABOLIC Hx Diabetes Mellitus Type 2: Yes - MUSCULOSKELETAL/RHEUMATOLOGICAL Hx Falls: Yes - PSYCHIATRIC Hx Depression: Yes Hx Substance Use: No - SURGICAL HISTORY Hx Coronary Artery Bypass Graft: Yes Hx Coronary Stent: Yes - ANESTHESIA Hx Anesthesia: Yes Hx Anesthesia Reactions: No Meds Allergies/Adverse Reactions: Allergies Allergy/AdvReac Type Severity Reaction Status Date / Time lactose AdvReac DIARRHEA Verified 04/16/18 20:13 - Medications Medications: Current Medications Acetaminophen (Tylenol 325 Mg Supp) 325 mg NH Q4 PRN PRN Reason: Fever >100.4 F Aspirin (Aspirin Supp) 300 mg NH DAILY [facility] Last Admin: 04/17/18 10:44 Dose: 300 mg Clopidogrel Bisulfate (Plavix) 75 mg PO DAILY [facility] Last Admin: 04/17/18 11:42 Dose: Not Given Dextrose (Dextrose 50% Inj) 0 ml IV STAT PRN; Protocol PRN Reason: Hypoglycemia Protocol Dextrose (Glutose 15) 0 gm PO ONCE PRN; Protocol PRN Reason: Hypoglycemia Protocol Enoxaparin Sodium (Lovenox) 30 mg SC DAILY [facility] Last Admin: 04/17/18 17:35 Dose: 30 mg Famotidine (Pepcid) 20 mg PO BID [facility] Glucagon (Glucagen Diagnostic Kit) 0 mg IM STAT PRN; Protocol PRN Reason: Hypoglycemia Protocol Dextrose/Sodium Chloride (Dextrose 5%/0.45% Ns 1000 Ml) 1,000 mls @ 80 mls/hr IV .[id number] [facility] Last Admin: 04/17/18 16:10 Dose: 80 mls/hr Dextrose (Dextrose 5% In Water 1000 Ml) 1,000 mls @ 0 mls/hr IV .Q0M PRN; Protocol PRN Reason: Hypoglycemia Protocol Piperacillin Sod/Tazobactam (Sod 3.375 gm/ Sodium Chloride) 100 mls @ 200 mls/hr IVPB Q8H [facility]; Protocol Last Admin: 04/17/18 17:38 Dose: 200 mls/hr Vancomycin/Sodium Chloride (Vancomycin 1 Gm/Ns 200 Ml) 1 gm in 200 mls @ 133.333 mls/hr IVPB Q24H [facility]; Protocol Last Admin: 04/17/18 17:39 Dose: 133.333 mls/hr Potassium Chloride 40 meq/ (Dextrose/Sodium Chloride) 1,020 mls @ 100 mls/hr IV .[id number] [facility] Last Admin: 04/17/18 17:37 Dose: 100 mls/hr Insulin Aspart (Novolog) 0 unit SC ACHS [facility]; Protocol Last Admin: 04/17/18 16:47 Dose: Not Given Rosuvastatin Calcium (Crestor) 10 mg PO HS [facility] Physical Exam - Additional Findings Additional findings: - Constitutional Appears: No Acute Distress - Head Exam Head Exam: ATRAUMATIC - Eye Exam Eye Exam: EOMI. absent: Periorbital swelling, Periorbital tenderness Additional comments: Sluggish EOMI - ENT Exam ENT Exam: Mucous Membranes Dry - Respiratory Exam Respiratory Exam: Clear to Ausculation Bilateral, NORMAL BREATHING PATTERN. ab sent: Rhonchi, Wheezes, Respiratory Distress - Cardiovascular Exam Cardiovascular Exam: REGULAR RHYTHM, +S1, +S2 - GI/Abdominal Exam GI & Abdominal Exam: Soft, Normal Bowel Sounds. absent: Firm, Guarding, Rigid, Tenderness - Extremities Exam Extremities Exam: Normal Inspection. absent: Calf Tenderness, Pedal Edema, Tenderness - Neurological Exam Neurological Exam: Alert, Awake, Oriented x3 Neuro motor strength exam: Left Upper Extremity: 0 (Chronic, s/p CVA 2011), Right Upper Extremity: 4, Left Lower Extremity: 0 (Chronic, s/p CVA 2011), Right Lower Extremity: 4 - Psychiatric Exam Psychiatric exam: Normal Affect - Skin Skin Exam: Normal Color Results - Vital Signs Recent Vital Signs: Last Vital Signs Temp 98.4 F 04/17/18 15:00 Pulse 73 04/17/18 15:00 Resp 20 04/17/18 15:00 BP 134/69 04/17/18 15:00 Pulse Ox 97 04/17/18 15:00 - Labs Result Diagrams: 04/17/18 05:52 04/17/18 05:52 Labs: Laboratory Results - last 24 hr 04/16/18 04/16/18 04/16/18 20:10 20:17 20:17 WBC 20.7 H D RBC 4.54 Hgb 13.5 Hct 38.8 MCV 85.5 MCH 29.7 MCHC 34.7 RDW 13.3 Plt Count 255 MPV 8.8 Neut % (Auto) 77.8 H Lymph % (Auto) 14.2 L [place] % (Auto) 6.2 Eos % (Auto) 0.5 Baso % (Auto) 1.3 Neut # (Auto) 16.1 H Lymph # (Auto) 2.9 [place] # (Auto) 1.3 H Eos # (Auto) 0.1 Baso # (Auto) 0.3 H PT 13.4 H INR 1.2 APTT 32 Sodium Potassium Chloride Carbon Dioxide Anion Gap BUN Creatinine Est GFR ( Amer) Est GFR (Non-Af Amer) POC Glucose (mg/dL) 158 H Random Glucose Hemoglobin A1c Calcium Total Bilirubin AST ALT Alkaline Phosphatase Ammonia Troponin I Total Protein Albumin Globulin Albumin/Globulin Ratio Triglycerides Cholesterol LDL Cholesterol Direct HDL Cholesterol Urine Color Urine Clarity Urine pH Ur Specific [place] Urine Protein Urine Glucose (UA) Urine Ketones Urine Blood Urine Nitrate Urine Bilirubin Urine Urobilinogen Ur Leukocyte Esterase Urine WBC (Auto) Urine RBC (Auto) Ur Squamous Epith Cells Urine Bacteria Blood Type Antibody Screen 04/16/18 04/16/18 04/16/18 20:17 20:17 20:17 WBC RBC Hgb Hct MCV MCH MCHC RDW Plt Count MPV Neut % (Auto) Lymph % (Auto) [place] % (Auto) Eos % (Auto) Baso % (Auto) Neut # (Auto) Lymph # (Auto) [place] # (Auto) Eos # (Auto) Baso # (Auto) PT INR APTT Sodium 140 Potassium 3.9 Chloride 103 Carbon Dioxide 21 L Anion Gap 20 BUN 17 Creatinine 0.8 Est GFR ( Amer) > 60 Est GFR (Non-Af Amer) > 60 POC Glucose (mg/dL) Random Glucose 170 H Hemoglobin A1c 7.8 H Calcium 9.7 Total Bilirubin 0.6 AST 19 ALT 20 Alkaline Phosphatase 103 Ammonia Troponin I < 0.0120 Total Protein 8.2 Albumin 4.6 Globulin 3.6 Albumin/Globulin Ratio 1.3 Triglycerides 159 H Cholesterol 122 LDL Cholesterol Direct 61 HDL Cholesterol 42 Urine Color Urine Clarity Urine pH Ur Specific [place] Urine Protein Urine Glucose (UA) Urine Ketones Urine Blood Urine Nitrate Urine Bilirubin Urine Urobilinogen Ur Leukocyte Esterase Urine WBC (Auto) Urine RBC (Auto) Ur Squamous Epith Cells Urine Bacteria Blood Type A POSITIVE Antibody Screen Negative 04/16/18 04/17/18 04/17/18 21:50 05:52 05:52 WBC 16.6 H RBC 3.75 L Hgb 11.1 D Hct 32.0 L MCV 85.2 MCH 29.6 MCHC 34.8 RDW 13.4 Plt Count 215 MPV 8.6 Neut % (Auto) 70.9 Lymph % (Auto) 18.9 L [place] % (Auto) 8.3 Eos % (Auto) 0.9 Baso % (Auto) 1.0 Neut # (Auto) 11.8 H Lymph # (Auto) 3.1 [place] # (Auto) 1.4 H Eos # (Auto) 0.1 Baso # (Auto) 0.2 PT INR APTT Sodium 139 Potassium 3.5 L Chloride 103 Carbon Dioxide 23 Anion Gap 17 BUN 17 Creatinine 1.0 Est GFR ( Amer) > 60 Est GFR (Non-Af Amer) 54 POC Glucose (mg/dL) Random Glucose 144 H Hemoglobin A1c Calcium 8.7 Total Bilirubin 0.6 AST 11 L D ALT 24 Alkaline Phosphatase 74 Ammonia Troponin I Total Protein 6.4 Albumin 3.4 L D Globulin 3.0 Albumin/Globulin Ratio 1.1 Triglycerides Cholesterol LDL Cholesterol Direct HDL Cholesterol Urine Color Yellow Urine Clarity Clear Urine pH 5.0 Ur Specific [place] 1.027 Urine Protein 1+ H Urine Glucose (UA) Normal Urine Ketones Trace Urine Blood Negative Urine Nitrate Negative Urine Bilirubin Negative Urine Urobilinogen 2.0 H Ur Leukocyte Esterase Neg Urine WBC (Auto) 1 Urine RBC (Auto) 2 Ur Squamous Epith Cells 1 Urine Bacteria Rare Blood Type Antibody Screen 04/17/18 04/17/18 04/17/18 05:52 08:04 12:42 WBC RBC Hgb Hct MCV MCH MCHC RDW Plt Count MPV Neut % (Auto) Lymph % (Auto) [place] % (Auto) Eos % (Auto) Baso % (Auto) Neut # (Auto) Lymph # (Auto) [place] # (Auto) Eos # (Auto) Baso # (Auto) PT INR APTT Sodium Potassium Chloride Carbon Dioxide Anion Gap BUN Creatinine Est GFR ( Amer) Est GFR (Non-Af Amer) POC Glucose (mg/dL) 118 H 127 H Random Glucose Hemoglobin A1c Calcium Total Bilirubin AST ALT Alkaline Phosphatase Ammonia 10 Troponin I Total Protein Albumin Globulin Albumin/Globulin Ratio Triglycerides Cholesterol LDL Cholesterol Direct HDL Cholesterol Urine Color Urine Clarity Urine pH Ur Specific [place] Urine Protein Urine Glucose (UA) Urine Ketones Urine Blood Urine Nitrate Urine Bilirubin Urine Urobilinogen Ur Leukocyte Esterase Urine WBC (Auto) Urine RBC (Auto) Ur Squamous Epith Cells Urine Bacteria Blood Type Antibody Screen 04/17/18 16:11 WBC RBC Hgb Hct MCV MCH MCHC RDW Plt Count MPV Neut % (Auto) Lymph % (Auto) [place] % (Auto) Eos % (Auto) Baso % (Auto) Neut # (Auto) Lymph # (Auto) [place] # (Auto) Eos # (Auto) Baso # (Auto) PT INR APTT Sodium Potassium Chloride Carbon Dioxide Anion Gap BUN Creatinine Est GFR ( Amer) Est GFR (Non-Af Amer) POC Glucose (mg/dL) 130 H Random Glucose Hemoglobin A1c Calcium Total Bilirubin AST ALT Alkaline Phosphatase Ammonia Troponin I Total Protein Albumin Globulin Albumin/Globulin Ratio Triglycerides Cholesterol LDL Cholesterol Direct HDL Cholesterol Urine Color Urine Clarity Urine pH Ur Specific [place] Urine Protein Urine Glucose (UA) Urine Ketones Urine Blood Urine Nitrate Urine Bilirubin Urine Urobilinogen Ur Leukocyte Esterase Urine WBC (Auto) Urine RBC (Auto) Ur Squamous Epith Cells Urine Bacteria Blood Type Antibody Screen Assessment & Plan - Assessment and Plan (Free Text) Assessment: AMS -Fever 100.6 on ED admission -Leukocytosis at 20.7 -Continue antibiotics -Follow up cultures and MRAs -Follow up echocardiogram and doppler (previous in 10/2017) CAD s/p 2 stents -Continue ASA, Plavix, statin, coreg once cleared swallow eval Hx of CVA -Residual left sided hemiparesis -Continue ASA, Plavix, statin Case discussed with attending Dr. Coley <Scott Coely - Last Filed: 04/18/18 00:29> Meds - Medications Medications: Current Medications Acetaminophen (Tylenol 650 Mg Supp) 650 mg NH Q6 PRN PRN Reason: Pain, moderate (4-7) Last Admin: 04/17/18 19:57 Dose: 650 mg Aspirin (Aspirin Supp) 300 mg NH DAILY [facility] Last Admin: 04/17/18 10:44 Dose: 300 mg Clopidogrel Bisulfate (Plavix) 75 mg PO DAILY [facility] Last Admin: 04/17/18 11:42 Dose: Not Given Dextrose (Dextrose 50% Inj) 0 ml IV STAT PRN; Protocol PRN Reason: Hypoglycemia Protocol Dextrose (Glutose 15) 0 gm PO ONCE PRN; Protocol PRN Reason: Hypoglycemia Protocol Enalaprilat (Vasotec) 2.5 mg IVP Q6 PRN PRN Reason: Systolic Blood Pressure Enoxaparin Sodium (Lovenox) 30 mg SC DAILY [facility] Last Admin: 04/17/18 17:35 Dose: 30 mg Famotidine (Pepcid) 20 mg PO BID [facility] Last Admin: 04/17/18 18:31 Dose: Not Given Glucagon (Glucagen Diagnostic Kit) 0 mg IM STAT PRN; Protocol PRN Reason: Hypoglycemia Protocol Dextrose (Dextrose 5% In Water 1000 Ml) 1,000 mls @ 0 mls/hr IV .Q0M PRN; Protocol PRN Reason: Hypoglycemia Protocol Piperacillin Sod/Tazobactam (Sod 3.375 gm/ Sodium Chloride) 100 mls @ 200 mls/hr IVPB Q8H [facility]; Protocol Last Admin: 04/17/18 17:38 Dose: 200 mls/hr Vancomycin/Sodium Chloride (Vancomycin 1 Gm/Ns 200 Ml) 1 gm in 200 mls @ 133.333 mls/hr IVPB Q24H [facility]; Protocol Last Admin: 04/17/18 17:39 Dose: 133.333 mls/hr Potassium Chloride 40 meq/ (Dextrose/Sodium Chloride) 1,020 mls @ 100 mls/hr IV .[id number] [facility] Last Admin: 04/17/18 17:37 Dose: 100 mls/hr Insulin Aspart (Novolog) 0 unit SC ACHS [facility]; Protocol Last Admin: 04/17/18 22:28 Dose: Not Given Rosuvastatin Calcium (Crestor) 10 mg PO HS [facility] Last Admin: 04/17/18 21:31 Dose: Not Given Results - Vital Signs Recent Vital Signs: Last Vital Signs Temp 98.9 F 04/17/18 22:29 Pulse 87 04/17/18 21:00 Resp 20 04/17/18 19:55 BP 137/65 04/17/18 21:00 Pulse Ox 97 04/17/18 21:00 - Labs Result Diagrams: 04/17/18 05:52 04/17/18 05:52 Labs: Laboratory Results - last 24 hr 04/16/18 04/17/18 04/17/18 20:10 05:52 05:52 WBC 16.6 H RBC 3.75 L Hgb 11.1 D Hct 32.0 L MCV 85.2 MCH 29.6 MCHC 34.8 RDW 13.4 Plt Count 215 MPV 8.6 Neut % (Auto) 70.9 Lymph % (Auto) 18.9 L [place] % (Auto) 8.3 Eos % (Auto) 0.9 Baso % (Auto) 1.0 Neut # (Auto) 11.8 H Lymph # (Auto) 3.1 [place] # (Auto) 1.4 H Eos # (Auto) 0.1 Baso # (Auto) 0.2 Sodium 139 Potassium 3.5 L Chloride 103 Carbon Dioxide 23 Anion Gap 17 BUN 17 Creatinine 1.0 Est GFR ( Amer) > 60 Est GFR (Non-Af Amer) 54 POC Glucose (mg/dL) 158 H Random Glucose 144 H Calcium 8.7 Total Bilirubin 0.6 AST 11 L D ALT 24 Alkaline Phosphatase 74 Ammonia Total Protein 6.4 Albumin 3.4 L D Globulin 3.0 Albumin/Globulin Ratio 1.1 04/17/18 04/17/18 04/17/18 05:52 08:04 12:42 WBC RBC Hgb Hct MCV MCH MCHC RDW Plt Count MPV Neut % (Auto) Lymph % (Auto) [place] % (Auto) Eos % (Auto) Baso % (Auto) Neut # (Auto) Lymph # (Auto) [place] # (Auto) Eos # (Auto) Baso # (Auto) Sodium Potassium Chloride Carbon Dioxide Anion Gap BUN Creatinine Est GFR ( Amer) Est GFR (Non-Af Amer) POC Glucose (mg/dL) 118 H 127 H Random Glucose Calcium Total Bilirubin AST ALT Alkaline Phosphatase Ammonia 10 Total Protein Albumin Globulin Albumin/Globulin Ratio 04/17/18 16:11 WBC RBC Hgb Hct MCV MCH MCHC RDW Plt Count MPV Neut % (Auto) Lymph % (Auto) [place] % (Auto) Eos % (Auto) Baso % (Auto) Neut # (Auto) Lymph # (Auto) [place] # (Auto) Eos # (Auto) Baso # (Auto) Sodium Potassium Chloride Carbon Dioxide Anion Gap BUN Creatinine Est GFR ( Amer) Est GFR (Non-Af Amer) POC Glucose (mg/dL) 130 H Random Glucose Calcium Total Bilirubin AST ALT Alkaline Phosphatase Ammonia Total Protein Albumin Globulin Albumin/Globulin Ratio Assessment & Plan - Assessment and Plan (Free Text) Plan: Patient see and evaluated personally by me Plan of care d/w the resident and as documented Stress test prior to discharge
[2018-04-17] MEDS ORDERED: guaiFENesin 100 mg/5 ml Syrup UD PO PRN (19:45)
[2018-04-17] MEDS ORDERED: Enalaprilat 2.5 MG/2 ML IV PRN (21:31)
[2018-04-17] MEDS ORDERED: Enalaprilat 2.5 MG/2 ML IVP PRN (21:38)
--- NOTE | 2018-04-17 22:09 | CON ---
DATE: 04/17/2018 REASON FOR CONSULTATION: Altered mental status. HISTORY OF PRESENTING ILLNESS: The patient is a 77-year-old female who has been asked for evaluation of altered mental status. The patient had a stroke in 10/2017, and since that time, she is weak on the left side. Yesterday, the patient was lethargic and was having slurring of speech and confused, that is why the patient was brought to the hospital. History was from the patient as well as the patient's family. As per family, the patient's mental status is a lot better than how it was yesterday. Denies any new weakness in her arm or leg. REVIEW OF SYSTEMS: Positive for mild headache. Denies any chest pain, shortness of breath, abdominal pain, constipation, diarrhea, dysuria, cough, or sputum production. PAST MEDICAL HISTORY: Includes cerebrovascular accident, hypertension, diabetes mellitus. MEDICATIONS: Her medications at home included Lipitor 80 mg, aspirin, diltiazem, Plavix, Coreg, docusate sodium, Remeron, glipizide, and Risperdal. ALLERGIES: LACTOSE. SOCIAL HISTORY: The patient is a nonsmoker, nonalcoholic, does not use any illicit drugs. FAMILY HISTORY: Reviewed and noncontributory to the case. PHYSICAL EXAMINATION: GENERAL: The patient is an elderly female, lying on the bed, in no acute distress. VITAL SIGNS: Her blood pressure is 125/84, heart rate is 88 per minute, breathing at the rate of 16 per minute, temperature is 98.3 degrees Fahrenheit. HEENT: Normocephalic and atraumatic. NECK: Supple. There are no carotid bruits. LUNGS: Clear. CARDIOVASCULAR SYSTEM: S1 and S2 are audible. No murmurs. ABDOMEN: Soft and nontender. Bowel sounds are present. NEUROLOGIC EXAMINATION: Mental Status: The patient is awake and alert. She follows all simple commands. She her family. Oriented to place. Oriented to self. Speech is mildly dysarthric. Cranial nerve examination: Pupils 3 mm bilaterally, reactive to light. Visual price are full to threat. Extraocular movements are intact. There is mild diffuse nasolabial fold on the left side. Palate is upgoing bilaterally, and tongue is midline. Motor examination: Tone is decreased on the left side with power in the left upper extremity 0/5 to 1/5. Power in the left lower extremity 3/5. Power on the right side is 5/5. Hyperreflexia noted on the left side. Plantars are upgoing on the left side. Gait is deferred at the moment. Cerebellar examination: [id number] shows no dysmetria on the right side. LABORATORY DATA: Labs reviewed shows WBC of 20.7 on arrival to the hospital yesterday. This morning, it is 16.6, hemoglobin is 11.1, hematocrit is 32, and platelets of 215. INR is 1.2. Sodium is 139, potassium 3.5, chloride of 103, carbon dioxide 23, BUN of 17, creatinine of 1, and glucose of 144. Urinalysis shows wbc's of 2. Her chest x-ray shows no acute infiltrate. IMPRESSION: 1. Altered mental status with elevated white blood cell count. This is likely secondary to an infectious etiology with toxic metabolic encephalopathy and debility. 2. Old cerebrovascular accident. RECOMMENDATIONS: 1. The patient to have MRI of the brain without contrast. 2. The patient to have an electroencephalogram. 3. The patient to have blood cultures to be sent. 4. Consider starting IV antibiotics for elevated white blood cell count. 5. If the patient's MRI of the brain shows any acute stroke then consider echocardiogram as well as carotid Doppler if not done recently. 6. The patient will be continued on aspirin and Plavix, which she was on at home. 7. The patient also will be continued on statin. 8. The patient is to have physical therapy and speech therapy evaluation. 9. Please continue supportive care and the treatment. Thank you for the opportunity to participate in the care of this patient. Lenard Redmond MD
[2018-04-18] MEDS: Piperacillin/Tazobact 3.375 GM in Sodium Chloride 100 ML IVPB SCH ×3 (00:40→17:49)
[2018-04-18] MEDS: Potassium Chloride 40 MEQ in Dextrose 5%/0.45% NS 1,000 ML IV SCH ×3 (02:27→14:07)
[2018-04-18] MEDS: (Novolog) Insulin Aspart, Recombinant 100 u/ml 10 ml vial SC SCH ×4 (07:30→21:13)
[2018-04-18 07:43] LABS: BASO # 0.1 K/uL (0.0-0.2); BASO % 0.5 % (0.0-2.0); EOS # 0.3 K/uL (0.0-0.7); EOS % 2.2 % (0.0-4.0); LYMPH # 2.3 K/uL (1.0-4.3); LYMPH % 14.9 % (20.0-40.0); MEAN CELL VOLUME 84.5 fL (81.0-99.0); MEAN CORPUSCULAR HEMOGLOBIN 29.4 pg (27.0-31.0); MEAN CORPUSCULAR HGB CONC 34.8 g/dL (33.0-37.0); MEAN PLATELET VOLUME 8.6 fL (7.2-11.7); MONO # 1.2 K/uL (0.0-0.8); MONO % 7.7 % (0.0-10.0); NEUT # 11.5 K/uL (1.8-7.0); NEUT % 74.7 % (50.0-75.0); RBC 3.73 Mil/uL (3.80-5.20); RED CELL DISTRIBUTION WIDTH 13.3 % (11.5-14.5); WHITE BLOOD COUNT 15.3 K/uL (4.8-10.8)
[2018-04-18 08:46] LABS: ALB/GLOB RATIO 1.1 (1.0-2.1); ALBUMIN 3.2 g/dL (3.5-5.0); ALT/SGPT 36 U/L (9-52); AST/SGOT 37 U/L (14-36); BLOOD UREA NITROGEN 13 mg/dL (7-17); GFR NON-AFRICAN AMERICAN > 60
[2018-04-18] MEDS: Enoxaparin 30 mg Syringe SC SCH (09:06)
--- NOTE | 2018-04-18 10:54 | MRI ---
Date of service: 04/17/2018 PROCEDURE: MR Angiography of the neck without contrast HISTORY: possible new stroke COMPARISON: Head and Neck CT angiogram 11/25/2017. TECHNIQUE: 3D [id number] angiography of the neck was performed. Rotating maximum intensity projection images of the cervical carotid and vertebral arteries were generated. The origins of the common carotid arteries were not visualized, which is a limitation inherent to the non-contrast time of flight technique. FINDINGS: RIGHT CAROTID ARTERIES: Common Carotid Artery: Vessel remains ectatic though widely patent. Carotid Bifurcation: Prominent atherosclerotic plaque is appreciated resulting in grade stenosis of the origin of the right ICA. Internal Carotid Artery:High-grade stenosis in a short segment of the proximal ICA which subsequently occludes. External Carotid Artery (proximal branches): Patent. LEFT CAROTID ARTERIES: Common Carotid Artery: Normal. Carotid Bifurcation: [id number] carotid bulbar atherosclerosis noted. Internal Carotid Artery:Mild proximal left ICA stenosis beginning at the origin, resuming normal caliber a few cm distal to origin. External Carotid Artery (proximal branches): Normal. VERTEBRAL ARTERIES: Right Vertebral Artery: Normal. Left Vertebral Artery: Questionable occlusion of the proximal to mid left vertebral artery with mild amount of flow identified at the distal cervical segment. OTHER FINDINGS: None. IMPRESSION: 1. 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 Collateralization of right MASR is appreciated once again and mildly into the right MCA with comparison by follow-up CT angiogram available if clinically warranted. The left ICA remains patent with a mild stenosis questioned at the proximal left ICA. 2. Question of interval occlusion proximal to mid left vertebral artery with mild flow identified at the distal cervical segment. Follow-up CT angiogram of the head and neck is advised for better characterization. Patent right vertebral artery. Findings discussed with Dr. Wu with written down and read back verification 04/17/2018 12:15 p.m..
--- NOTE | 2018-04-18 11:39 | CP.PCM.PN ---
Subjective - Date & Time of Evaluation Date of Evaluation: 04/18/18 Time of Evaluation: 09:40 - Subjective Subjective: PGY 2 Medicine progress note ( Dr. Wu's service) Patient was seen and examined at bedside, with daughter presents. As per daughter, patient looks better however still complains of throat pain with swallowing, diarrhea, lower abdominal pain and fever, but denies chest pain, palpitations, SOB, dizziness. Patient is more awake, alert with improving speech this morning. Objective - Vital Signs/Intake and Output Vital Signs (last 24 hours): Temp Pulse Resp BP Pulse Ox 98.1 F 76 20 150/73 100 04/18/18 07:00 04/18/18 07:00 04/18/18 07:00 04/18/18 07:00 04/18/18 07:00 - Medications Medications: Current Medications Acetaminophen (Tylenol 650 Mg Supp) 650 mg [place] Q6 PRN PRN Reason: Pain, moderate (4-7) Last Admin: 04/17/18 19:57 Dose: 650 mg Aspirin (Aspirin Supp) 300 mg W[place] DAILY [facility] Last Admin: 04/17/18 10:44 Dose: 300 mg Clopidogrel Bisulfate (Plavix) 75 mg PO DAILY [facility] Last Admin: 04/18/18 09:12 Dose: Not Given Dextrose (Dextrose 50% Inj) 0 ml IV STAT PRN; Protocol PRN Reason: Hypoglycemia Protocol Dextrose (Glutose 15) 0 gm PO ONCE PRN; Protocol PRN Reason: Hypoglycemia Protocol Enalaprilat (Vasotec) 2.5 mg IVP Q6 PRN PRN Reason: Systolic Blood Pressure Enoxaparin Sodium (Lovenox) 30 mg SC DAILY [facility] Last Admin: 04/18/18 09:06 Dose: 30 mg Famotidine (Pepcid) 20 mg PO BID [facility] Last Admin: 04/18/18 09:12 Dose: Not Given Glucagon (Glucagen Diagnostic Kit) 0 mg IM STAT PRN; Protocol PRN Reason: Hypoglycemia Protocol Dextrose (Dextrose 5% In Water 1000 Ml) 1,000 mls @ 0 mls/hr IV .Q0M PRN; Protocol PRN Reason: Hypoglycemia Protocol Piperacillin Sod/Tazobactam (Sod 3.375 gm/ Sodium Chloride) 100 mls @ 200 mls/hr IVPB Q8H [facility]; Protocol Last Admin: 04/18/18 08:58 Dose: 200 mls/hr Vancomycin/Sodium Chloride (Vancomycin 1 Gm/Ns 200 Ml) 1 gm in 200 mls @ 13 3.333 mls/hr IVPB Q24H [facility]; Protocol Last Admin: 04/17/18 17:39 Dose: 133.333 mls/hr Potassium Chloride 40 meq/ (Dextrose/Sodium Chloride) 1,020 mls @ 100 mls/hr IV .[id number] [facility] Last Admin: 04/18/18 08:56 Dose: 100 mls/hr Insulin Aspart (Novolog) 0 unit SC ACHS [facility]; Protocol Last Admin: 04/18/18 07:30 Dose: Not Given Rosuvastatin Calcium (Crestor) 10 mg PO HS [facility] Last Admin: 04/17/18 21:31 Dose: Not Given - Labs Labs: 04/18/18 07:22 04/18/18 07:22 PT 13.4 SECONDS (9.7-12.2) H 04/16/18 20:17 INR 1.2 04/16/18 20:17 APTT 32 SECONDS (21-34) 04/16/18 20:17 - Constitutional Appears: No Acute Distress - Head Exam Head Exam: ATRAUMATIC - Eye Exam Eye Exam: EOMI - ENT Exam ENT Exam: Mucous Membranes Moist - Respiratory Exam Respiratory Exam: Clear to Ausculation Bilateral, NORMAL BREATHING PATTERN. absent: Prolonged Expiratory Phase, Rhonchi, Wheezes, Respiratory Distress - Cardiovascular Exam Cardiovascular Exam: REGULAR RHYTHM, +S1, +S2. absent: Murmur - GI/Abdominal Exam GI & Abdominal Exam: Soft, Normal Bowel Sounds, Rebound. absent: Distended, Guarding, Rigid Additional comments: Mild lower abdominal tenderness on palpation - Extremities Exam Extremities Exam: Normal Inspection. absent: Calf Tenderness, Pedal Edema - Back Exam Back Exam: absent: CVA tenderness (L), CVA tenderness (R) - Neurological Exam Neurological Exam: Alert, Awake, Oriented x3 - Psychiatric Exam Psychiatric exam: Normal Affect - Skin Skin Exam: Normal Color Assessment and Plan (1) Confusion and disorientation Assessment & Plan: Neurohospitalist and Neurology, Dr. Redmond on board * Management as per recommendation R/O infection and CVA Febrile, Tmax: 100.6 Leukocytosis * Tylenol 325mg [place] Q4H PRN for fever> 100.4 * UA is negative, F/U UC AND BC * Prophylactic antibiotics; Vancomycin 1gm IV daily and Zosyn 3.375gm IV Q8H * NS @ 100mls/hr Lipid Panel: - TGL: 159, Chol:122, LDL:61 and HDL:42 Chest X-ray: No focal infiltrate or effusion. Calcification at the aortic knob. Right paratracheal prominence likely represents prominent vasculature. Tortuous aorta. Mild cardiomegaly. Degenerative changes in the spine. HEAD CT: No acute intracranial abnormality. Chronic areas of encephalomalacia as described above. Chronic microvascular ischemic change. Prominent ventricles. If symptoms persists, consider correlation with MRI. Head MRI: Chronic infarcts identified in the right frontal lobe as well as left parietal occipital lobe with a small chronic infarct reiterated at the right occipital lobe. Occluded right ICA identified. No definite acute or subacute brain infarction identified at this time. Chronic lacune left thalamus. Two chronic lacunae at the right cerebellum superiorly. 2. Reiterated age related ne uro degenerative findings. 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 Right MARS and MCA at least partially collateralized by flow through the anterior communicating artery. Changes in collateralization can be correlated by repeat CTA head and neck if clinically warranted. 2. High-grade stenosis proximal basilar artery suggested this can also be correlated with CTA head and neck. 3. High-grade stenosis questioned at the mid cavernous left ICA, not previously shown. Echocardiogram (11/27/17): LV normal size, Mild concentric left ventricular hyper trophy and systolic function mildly impaired. Refer to the EMR for complete F/u Neck MRA F/u repeat echo Status: Acute (2) History of coronary artery disease Assessment & Plan: [employer] Law [employer], Dr. Coley on board 2 stent placement; 2010 Plavix 75mg PO daily; held due to failed bedside swallow eval, F/u video barium swallow Carvedilol 3.125mg PO BID; held due to failed bedside swallow eval, f/u video barium swallow ASA 300mg [place] daily Status: Acute (3) History of CVA (cerebrovascular accident) Assessment & Plan: Lipid Panel: - TGL: 159, Chol:122, LDL:61 and HDL:42 Plavix 75mg PO daily; held due to failed bedside swallow eval, F/u video barium swallow Crestor 10mg PO HS; held due to failed bedside swallow eval, F/u video barium swallow Crestor 10mg PO HS; ASA 300mg [place] daily Status: Acute (4) Diabetes mellitus Assessment & Plan: HgbA1C: 7.8 Accuchecks ISS-Low dose Hypoglycemia protocol Status: Chronic (5) Hypertension Assessment & Plan: Currently controlled Home medication: * Cardizem CD 240mg PO QD, not initiated due to controlled BP and failed bedside swallow eval, F/u video barium swallow * Vasotec 2.5mg IV q6h prn Status: Acute (6) Major depressive disorder with psychotic features Assessment & Plan: Home medications: * Risperidone 0.25mg PO HS * Mirtazapine 15mg PO HS * Not initiated due to failed bedside swallow eval, F/u video barium swallow Status: Chronic (7) Diarrhea Assessment & Plan: F/U Stool culture, Ova and parasite, Leukocytes and C-difficle and stool occult Status: Acute (8) Prophylactic measure Assessment & Plan: GI: Protonix 40 IV daily DVT: SCDs, Lovenox 40mg SC daily Disposition: Will consider NGT OR OGT pending modified barium swallow All plans and management discussed with Dr. Wu Status: Acute
--- NOTE | 2018-04-18 15:15 | RAD ---
Date of service: 04/18/2018 PROCEDURE: Modified barium swallow study. HISTORY: Difficulty with swallowing COMPARISON: None available. TECHNIQUE: Under fluoroscopic guidance, barium meals of various consistency were administered to the patient by the speech pathologist. 0.9 minutes of fluoro time was utilized with a total radiation cumulative dose of 6.813 mGy. FINDINGS: No penetration or aspiration was observed during this study. IMPRESSION: No penetration or aspiration observed. Please refer to the detailed report and recommendations of the speech pathologist.
--- NOTE | 2018-04-18 15:31 | PN ---
DATE: 04/18/2018 SUBJECTIVE: The patient is lying on the bed, in no acute distress. Denies having any headache. Complaining of mild neck pain. PHYSICAL EXAMINATION: VITAL SIGNS: Her blood pressure is 150/73, heart rate is 76 per minute, breathing at the rate of 16 per minute, and temperature is 98.1 degrees Fahrenheit. HEENT: Head is normocephalic and atraumatic. NECK: Supple. There are no carotid bruits. LUNGS: Clear. CARDIOVASCULAR SYSTEM: S1 and S2 audible. No murmurs. ABDOMEN: Soft and nontender. Bowel sounds are present. NEUROLOGIC: Mental Status: The patient is awake and alert. She denies herself. She does not know where she is and does not know the year or month. She follows simple commands. Cranial Nerve: Pupils are 3 mm bilaterally, reactive to light. Visual price are full. Extraocular movements are intact. There is mild diffuse nasolabial fold on the left side. There is left-sided hemiparesis with power in the left upper extremity 0/5. Power in the left lower extremity is 2-3/5. Power on the right side is 3-4/5. The plantars are upgoing on the left side, downgoing on the right side. LABORATORY DATA: Labs reviewed, show WBC of 15.3, hemoglobin of 11, hematocrit 31.5, and platelets of 206. Sodium is 140, potassium 4.4, chloride 107, carbon dioxide 22, BUN of 13, creatinine 0.7, and glucose of 163. She had MRI of the brain done, which shows no evidence of any new stroke, chronic infarcts in the right frontal as well as the left parieto-occipital lobe and chronic infarcts in the right occipital lobe, occluded right ICA identified. The patient had MRA of the head done, which shows occluded right internal carotid artery of the distal neck and skull base. The patient also had the neck MRA, which showed recreation of occluded right cervical internal coronary artery. IMPRESSION: 1. Altered mental status secondary to toxic metabolic encephalopathy. 2. Cerebrovascular accident. 3. Possible underlying dementia. RECOMMENDATIONS: 1. The patient to be continued on IV antibiotics. 2. The patient also to be continued on aspirin and statin. 3. The patient had an electroencephalogram, which was abnormal consistent with mild dysfunction. 4. The patient has occluded right internal carotid artery. No intervention to be done for that. 5. The patient to be continued on aspirin and Plavix. 6. The patient to be continued on statin. 7. The patient is to be continued on physical and speech therapy. 8. The patient is to be continued on IV antibiotics for central line infection. 9. Continue supportive care and treatment. Thank you for the opportunity to participate in the care of this patient. Lenard Redmond MD
--- NOTE | 2018-04-18 17:44 | CP.PCM.CON ---
History of Present Illness - History of Present Illness History of Present Illness: 77 year old female is brought to the ED by family for evaluation of change in mental status . . Family reports symptoms are progressively worsening, has trouble finding words, slurred speech. Patient has left over left facial droop, left arm and leg weakness from a previous CVA. Patient denies headache, dizziness, nausea, vomit, new injury, fall, trauma. did spike a fever in ER was culturesd up and started on antibiotics but developed diarrhea C diff sent / pending IV rx in progress - Medical History PMH: Atrial Fibrillation, CAD, CVA, Depression, Diabetes, HTN, Hypercholeste rolemia Surgical History: CABG, Coronary Stent - [facility] GROUP PSYCHOTHERAPY (12/12/17) INDIVIDUAL PSYCHOTHERAPY, BEHAVIORAL (12/12/17) Review of Systems - Review of Systems All systems: reviewed and no additional remarkable complaints except - Constitutional Constitutional: As Per HPI - EENT Eyes: absent: As Per HPI, Blind Spots, Blurred Vision, Change in Vision, Decreased Night Vision, Diplopia, Discharge, Dry Eye, Exophthalmos, Floaters, Irritation, Itchy Eyes, Loss of Peripheral Vision, Pain, Photophobia, Requires Corrective Lenses, Sees Flashes, Spots in Vision, Tunnel Vision, Other Visual Disturbances, Loss of Vision, Other Ears: absent: As Per HPI, Decreased Hearing, Ear Discharge, Ear Pain, Tinnitus, Abnormal Hearing, Disequilibrium, Dizziness, Other Nose/Mouth/Throat: absent: As Per HPI, Epistaxis, Nasal Congestion, Nasal Discharge, Nasal Obstruction, Nasal Trauma, Nose Pain, Post Nasal Drip, Sinus Pain, Sinus Pressure, Bleeding Gums, Change in Voice, Dental Pain, Dry Mouth, Dysphagia, Halitosis, Hoarsness, Lip Swelling, Mouth Lesions, Mouth Pain, Odynophagia, Sore Throat, Throat Swelling, Tongue Swelling, Facial Pain, Neck Pain, Neck Mass, Other - Breasts Breasts: absent: As Per HPI, Change in Shape, Mass, Pain, Nipple Discharge, Nipple Inversion, Skin Changes, Swelling, Other - Cardiovascular Cardiovascular: absent: As Per HPI, Acrocyanosis, Chest Pain, Chest Pain at Rest, Chest Pain with Activity, Claudication, Diaphoresis, Dyspnea, Dyspnea on Exertion, Edema, Irregular Heart Rhythm, Pain Radiating to Arm/Neck/Jaw, Leg Rai ma, Leg Ulcers, Lightheadedness, Orthopnea, Palpitations, Paroxysmal Nocturnal Dyspnea, Pedal Edema, Radiating Pain, Rapid Heart Rate, Slow Heart Rate, Syncope, Other - Respiratory Respiratory: absent: As Per HPI, Cough, Dyspnea, Hemoptysis, Dyspnea on Exertion , Wheezing, Snoring, Stridor, Pain on Inspiration, Chest Congestion, Excessive Mucous Production, Change in Mucous Color, Pain with Coughing, Other - Gastrointestinal Gastrointestinal: As Per HPI - Genitourinary Genitourinary: absent: As Per HPI, Change in Urinary Stream, Difficulty Urinating, Dysuria, Flank Pain, Hematuria, Pyuria, Nocturia, Urinary Incontinence, Urinary Frequency, Urinary Hesitance, Urinary Urgency, Voiding Freq/Small Amts, Freq UTI, Hx Renal/Bladder Calculi, Hx /Renal Surgery, Bladder Distension, Other - Reproductive: Female Reproductive:Female: absent: As Per HPI, Amenorrhea, Amenorrhea/ Control, Currently Menstual, Cycle <21 Days, Cycle >35 Days, Cycle Variable, Menses 1-7 Days, Menses >/= 8 Days, Menses Variable, Cycle > 4 Weeks Between, No Menses for 6 Months, Heavy Menses, Light Menses, Normal Menses, Spotting Between Cycles, S/P Hysterectomy, Menopausal, Post Menopausal, Premenarche, Abnormal Vaginal Bleeding, Dysmenorrhea, Dyspareunia, Genital Lesions, Genital Pruritis, Pelvic Pain, Prolapse Symptoms, Sexual Dysfunction, Vaginal Discharge, Vaginal Dryness, Vaginal Odor, Vaginal Pruritis, Other - Menstruation Menstruation: absent: As Per HPI, Amenorrhea, Amenorrhea/ Control, Currently Menstual, Cycle <21 Days, Cycle >35 Days, Cycle Variable, Menses 1-7 Days, Menses >/= 8 Days, Menses Variable, Cycle > 4 Weeks Between, No Menses for 6 Months, Heavy Menses, Light Menses, Normal Menses, Spotting Between Cycles, S/P Hysterectomy, Menopausal, Post Menopausal, Premenarche, Abnormal Vaginal Bleeding, Dysmenorrhea, Other - Musculoskeletal Musculoskeletal: absent: As Per HPI, Abnormal Gait, Arthralgias, Atrophy, Back Pain, Deformity, Joint Swelling, Limited Range of Motion, Loss of Height, Muscle Cramps, Muscle Weakness, Myalgias, Neck Pain, Numbness, Radiating Pain into Limb, Stiffness, Tingling, Other - Integumentary Integumentary: absent: As Per HPI, Acne, Alopecia, Bleeding Lesions, Change in Hair, Change in Nails, Change in Pigmentation, Changing Lesions, Dry Skin, Erythema, Furuncle, Hirsutism, Lesions, New Lesions, Non-Healing Lesions, Photosensitivity, Pruritus, Rash, Skin Pain, Skin Ulcer, Sores, Striae, Swelling, Unusual Bruising, Wounds, Jaundice, Other - Neurological Neurological: As Per HPI - Psychiatric Psychiatric: As Per HPI - Endocrine Endocrine: absent: As Per HPI, Change in Body Appearance, Change in Libido, Cold Intolorance, Deepening of Voice, Excessive Sweating, Fatigue, Flushing, Heat Intolorance, Increase in Ring/Shoe/Hat Size, Palpitations, Polydipsia, Polyphagia, Polyuria, Other - Hematologic/Lymphatic Hematologic: absent: As Per HPI, Easy Bleeding, Easy Bruising, Lymphadenopathy, Other Past Patient History - Infectious Disease Hx of Infectious Diseases: None - Past Social History Smoking Status: Never Smoked - CARDIAC Hx Hypercholesterolemia: Yes Hx Hypertension: Yes - NEUROLOGICAL HX Cerebrovascular Accident: Yes (left side weakness) - ENDOCRINE/METABOLIC Hx Diabetes Mellitus Type 2: Yes - MUSCULOSKELETAL/RHEUMATOLOGICAL Hx Falls: Yes - PSYCHIATRIC Hx Depression: Yes Hx Substance Use: No - SURGICAL HISTORY Hx Coronary Artery Bypass Graft: Yes Hx Coronary Stent: Yes - ANESTHESIA Hx Anesthesia: Yes Hx Anesthesia Reactions: No Meds Allergies/Adverse Reactions: Allergies Allergy/AdvReac Type Severity Reaction Status Date / Time lactose AdvReac DIARRHEA Verified 04/16/18 20:13 - Medications Medications: Current Medications Acetaminophen (Tylenol 650 Mg Supp) 650 mg [place] Q6 PRN PRN Reason: Pain, moderate (4-7) Last Admin: 04/17/18 19:57 Dose: 650 mg Aspirin (Aspirin Supp) 300 mg [place] DAILY [facility] Last Admin: 04/18/18 10:30 Dose: 300 mg Clopidogrel Bisulfate (Plavix) 75 mg PO DAILY [facility] Last Admin: 04/18/18 09:12 Dose: Not Given Dextrose (Dextrose 50% Inj) 0 ml IV STAT PRN; Protocol PRN Reason: Hypoglycemia Protocol Dextrose (Glutose 15) 0 gm PO ONCE PRN; Protocol PRN Reason: Hypoglycemia Protocol Enalaprilat (Vasotec) 2.5 mg IVP Q6 PRN PRN Reason: Systolic Blood Pressure Enoxaparin Sodium (Lovenox) 30 mg SC DAILY [facility] Last Admin: 04/18/18 09:06 Dose: 30 mg Famotidine (Pepcid) 20 mg PO BID [facility] Last Admin: 04/18/18 09:12 Dose: Not Given Glucagon (Glucagen Diagnostic Kit) 0 mg IM STAT PRN; Protocol PRN Reason: Hypoglycemia Protocol Dextrose (Dextrose 5% In Water 1000 Ml) 1,000 mls @ 0 mls/hr IV .Q0M PRN; Protocol PRN Reason: Hypoglycemia Protocol Piperacillin Sod/Tazobactam (Sod 3.375 gm/ Sodium Chloride) 100 mls @ 200 mls/hr IVPB Q8H [facility]; Protocol Last Admin: 04/18/18 08:58 Dose: 200 mls/hr Vancomycin/Sodium Chloride (Vancomycin 1 Gm/Ns 200 Ml) 1 gm in 200 mls @ 133.333 mls/hr IVPB Q24H [facility]; Protocol Last Admin: 04/17/18 17:39 Dose: 133.333 mls/hr Potassium Chloride 40 meq/ (Dextrose/Sodium Chloride) 1,020 mls @ 100 mls/hr IV .[id number] [facility] Last Admin: 04/18/18 14:07 Dose: Not Given Insulin Aspart (Novolog) 0 unit SC ACHS [facility]; Protocol Last Admin: 04/18/18 14:06 Dose: Not Given Rosuvastatin Calcium (Crestor) 10 mg PO HS [facility] Last Admin: 04/17/18 21:31 Dose: Not Given Physical Exam - Constitutional Appears: Non-toxic, Confused, Chronically Ill - Head Exam Head Exam: ATRAUMATIC, NORMAL INSPECTION, NORMOCEPHALIC - Eye Exam Eye Exam: EOMI, PERRL. absent: Scleral icterus - ENT Exam ENT Exam: Mucous Membranes Dry, Normal External Ear Exam - Neck Exam Neck exam: Negative for: Lymphadenopathy - Respiratory Exam Respiratory Exam: Decreased Breath Sounds - Cardiovascular Exam Cardiovascular Exam: REGULAR RHYTHM - GI/Abdominal Exam GI & Abdominal Exam: Diminished Bowel Sounds, Soft. absent: Tenderness - Rectal Exam Rectal Exam: Deferred - Exam Exam: NORMAL INSPECTION - Extremities Exam Extremities exam: Positive for: pedal pulses present. Negative for: calf tenderness, pedal edema, tenderness - Back Exam Back exam: absent: CVA tenderness (L), CVA tenderness (R) - Neurological Exam Neurological exam: Alert, CN II-XII Intact, Oriented x3, Reflexes Normal - Psychiatric Exam Psychiatric exam: Normal Mood - Skin Skin Exam: Dry Results - Vital Signs Recent Vital Signs: Last Vital Signs Temp 98.4 F 04/18/18 15:00 Pulse 86 04/18/18 17:04 Resp 20 04/18/18 15:00 BP 156/52 H 04/18/18 15:00 Pulse Ox 98 04/18/18 17:09 - Labs Result Diagrams: 04/18/18 07:22 04/18/18 07:22 Labs: Laboratory Results - last 24 hr 04/17/18 04/18/18 04/18/18 21:25 06:08 07:22 WBC 15.3 H RBC 3.73 L Hgb 11.0 Hct 31.5 L MCV 84.5 MCH 29.4 MCHC 34.8 RDW 13.3 Plt Count 206 MPV 8.6 Neut % (Auto) 74.7 Lymph % (Auto) 14.9 L [place] % (Auto) 7.7 Eos % (Auto) 2.2 Baso % (Auto) 0.5 Neut # (Auto) 11.5 H Lymph # (Auto) 2.3 [place] # (Auto) 1.2 H Eos # (Auto) 0.3 Baso # (Auto) 0.1 Sodium Potassium Chloride Carbon Dioxide Anion Gap BUN Creatinine Est GFR ( Amer) Est GFR (Non-Af Amer) POC Glucose (mg/dL) 126 H 144 H Random Glucose Calcium Phosphorus Magnesium Total Bilirubin AST ALT Alkaline Phosphatase Total Protein Albumin Globulin Albumin/Globulin Ratio Free T4 TSH 3rd Generation Grp A Beta Strep Ag 04/18/18 04/18/18 04/18/18 07:22 07:22 11:50 WBC RBC Hgb Hct MCV MCH MCHC RDW Plt Count MPV Neut % (Auto) Lymph % (Auto) [place] % (Auto) Eos % (Auto) Baso % (Auto) Neut # (Auto) Lymph # (Auto) [place] # (Auto) Eos # (Auto) Baso # (Auto) Sodium 140 Potassium 4.4 Chloride 107 Carbon Dioxide 22 Anion Gap 15 BUN 13 Creatinine 0.7 Est GFR ( Amer) > 60 Est GFR (Non-Af Amer) > 60 POC Glucose (mg/dL) Random Glucose 163 H Calcium 9.0 Phosphorus 3.0 Magnesium 1.7 Total Bilirubin 0.7 AST 37 H D ALT 36 Alkaline Phosphatase 101 Total Protein 6.2 L Albumin 3.2 L Globulin 3.0 Albumin/Globulin Ratio 1.1 Free T4 0.99 TSH 3rd Generation 3.43 Grp A Beta Strep Ag Negative 04/18/18 14:00 WBC RBC Hgb Hct MCV MCH MCHC RDW Plt Count MPV Neut % (Auto) Lymph % (Auto) [place] % (Auto) Eos % (Auto) Baso % (Auto) Neut # (Auto) Lymph # (Auto) [place] # (Auto) Eos # (Auto) Baso # (Auto) Sodium Potassium Chloride Carbon Dioxide Anion Gap BUN Creatinine Est GFR ( Amer) Est GFR (Non-Af Amer) POC Glucose (mg/dL) 144 H Random Glucose Calcium Phosphorus Magnesium Total Bilirubin AST ALT Alkaline Phosphatase Total Protein Albumin Globulin Albumin/Globulin Ratio Free T4 TSH 3rd Generation Grp A Beta Strep Ag Assessment & Plan (1) Confusion and disorientation Status: Acute (2) Diarrhea Status: Acute (3) History of CVA (cerebrovascular accident) Status: Acute (4) History of coronary artery disease Status: Acute (5) Hypertension Status: Acute (6) Major depressive disorder Status: Acute (7) Diabetes mellitus Status: Chronic (8) History of CVA (cerebrovascular accident) Status: Chronic - Assessment and Plan (Free Text) Assessment: admitted with AMS and stroke like presentation No meningeal signs Neuro on board cultures pending empiric IV antibiotics started
[2018-04-18] MEDS: Vancomycin 1 gm/NS 200 ml 1 GM/200 ML BAG IVPB SCH (17:50)
[2018-04-18 19:29] LABS: C DIFF TOXIN A B NEGATIVE (NEGATIVE)
[2018-04-18 20:09] LABS: FECAL LEUKOCYTES NEGATIVE (NEGATIVE)
[2018-04-18] MEDS: Sodium Chloride 0.9% 1,000 ML IV SCH (21:14)
--- NOTE | 2018-04-18 21:36 | CP.PCM.PN ---
<Marc Lopez - Last Filed: 04/18/18 21:30> Subjective - Date & Time of Evaluation Date of Evaluation: 04/18/18 Time of Evaluation: 21:31 - Subjective Subjective: PGY1 Neurology Progress Note for Dr. Juan Patient seen and evaluated at bedside this morning. No acute complaints. Patient tolerated diet. Family at bedside. Objective - Vital Signs/Intake and Output Vital Signs (last 24 hours): Temp Pulse Resp BP Pulse Ox 98.4 F 86 20 156/52 H 98 04/18/18 15:00 04/18/18 17:04 04/18/18 15:00 04/18/18 15:00 04/18/18 17:09 - Medications Medications: Current Medications Acetaminophen (Tylenol 650 Mg Supp) 650 mg [place] Q6 PRN PRN Reason: Pain, moderate (4-7) Last Admin: 04/17/18 19:57 Dose: 650 mg Aspirin (Aspirin Supp) 300 mg UT DAILY [facility] Last Admin: 04/18/18 10:30 Dose: 300 mg Clopidogrel Bisulfate (Plavix) 75 mg PO DAILY [facility] Last Admin: 04/18/18 09:12 Dose: Not Given Dextrose (Dextrose 50% Inj) 0 ml IV STAT PRN; Protocol PRN Reason: Hypoglycemia Protocol Dextrose (Glutose 15) 0 gm PO ONCE PRN; Protocol PRN Reason: Hypoglycemia Protocol Enalaprilat (Vasotec) 2.5 mg IVP Q6 PRN PRN Reason: Systolic Blood Pressure Enoxaparin Sodium (Lovenox) 30 mg SC DAILY [facility] Last Admin: 04/18/18 09:06 Dose: 30 mg Famotidine (Pepcid) 20 mg PO BID [facility] Last Admin: 04/18/18 17:51 Dose: 20 mg Glucagon (Glucagen Diagnostic Kit) 0 mg IM STAT PRN; Protocol PRN Reason: Hypoglycemia Protocol Dextrose (Dextrose 5% In Water 1000 Ml) 1,000 mls @ 0 mls/hr IV .Q0M PRN; Protocol PRN Reason: Hypoglycemia Protocol Piperacillin Sod/Tazobactam (Sod 3.375 gm/ Sodium Chloride) 100 mls @ 200 mls/hr IVPB Q8H [facility]; Protocol Last Admin: 04/18/18 17:49 Dose: 200 mls/hr Vancomycin/Sodium Chloride (Vancomycin 1 Gm/Ns 200 Ml) 1 gm in 200 mls @ 133.333 mls/hr IVPB Q24H [facility]; Protocol Last Admin: 04/18/18 17:50 Dose: 133.333 mls/hr Sodium Chloride (Sodium Chloride 0.9%) 1,000 mls @ 100 mls/hr IV .Q10H [facility] Last Admin: 04/18/18 21:14 Dose: 100 mls/hr Insulin Aspart (Novolog) 0 unit SC ACHS [facility]; Protocol Last Admin: 04/18/18 21:13 Dose: Not Given Rosuvastatin Calcium (Crestor) 10 mg PO HS [facility] Last Admin: 04/18/18 21:14 Dose: 10 mg - Labs Labs: 04/18/18 07:22 04/18/18 07:22 PT 13.4 SECONDS (9.7-12.2) H 04/16/18 20:17 INR 1.2 04/16/18 20:17 APTT 32 SECONDS (21-34) 04/16/18 20:17 - Additional Findings Additional findings: - Constitutional Appears: Non-toxic, No Acute Distress - Head Exam Head Exam: ATRAUMATIC, NORMAL INSPECTION, NORMOCEPHALIC - Eye Exam Eye Exam: EOMI, Normal appearance, PERRL Pupil Exam: NORMAL ACCOMODATION - Neurological Exam Neurological exam: Alert, Oriented to person and place, CN II-XII Intact, Reflexes Normal - Expanded Neurological Exam Expanded Speech: Fluid Speech Cranial nerves: EOM's Intact: Normal, Facial Palsey w/Forehead Movement: Normal, Facial Palsey w/o Forehead Movement: Normal, Facial Sensation: Normal, Nystagmus: Normal Cerebellar Function: Finger to Nose: Normal, Abnormal Left (paralyzed left upper extremity ) Upper motor neuron: Lance Neglect: Normal, Pronator Drift: Normal, Sensory Extinction: Normal Sensory exam: Lower Extremity 2 Point Discrimination: Normal, Lower Extremity Light Touch: Normal, Lower Extremity Pin Prick: Normal, Lower Extremity Temperature: Normal, Upper Extremity 2 Point Discrimination: Normal, Upper Extremity Light Touch: Normal, Upper Extremity Pin Prick: Normal, Upper Extre mity Temperature: Normal Neuro motor strength exam: Left Upper Extremity: 0/5 (chronic (s/p CVA) ), Right Upper Extremity: 4/5, Left Lower Extremity: 1/5 (chronic (s/p CVA) ), Right Lower Extremity: 4/5 DTR: Brachioradialis Left: 2+, Brachioradialis Right: 2+, Patellar Left: 2+, Patellar Right: 2+ - Psychiatric Exam Psychiatric exam: Normal Affect, Normal Mood - Skin Skin Exam: Dry, Intact, Normal Color Assessment and Plan - Assessment and Plan (Free Text) Assessment: This is a 77-year-old Female with 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 Gutierrez undergo intense acute rehabilitation - Lipid Panel: TGL: 159, Chol:122, LDL:61 and HDL:42 - Continue ASA 81 mg PO daily and plavix 75mg PO daily Imaging: Chest X-ray: No focal infiltrate or effusion. Calcification at the aortic knob. Right paratracheal prominence likely represents prominent vasculature. Tortuous aorta. Mild cardiomegaly. Degenerative changes in the spine. HEAD CT: No acute intracranial abnormality. Chronic areas of encephalomalacia as described above. Chronic microvascular ischemic change. Prominent ventricles. If symptoms persists, consider correlation with MRI. Head MRI: Chronic infarcts identified in the right frontal lobe as well as left parietal occipital lobe with a small chronic infarct reiterated at the right occipital lobe. Occluded right ICA identified. No definite acute or subacute brain infarction identified at this time. Chronic lacune left thalamus. Two chronic lacunae at the right cerebellum superiorly. 2. Reiterated age related neuro degenerative findings. 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 Right MARS and MCA at least partially collateralized by flow through the anterior communicating artery. Changes in collateralization can be correlated by repeat CTA head and neck if clinically warranted. 2. High-grade stenosis proximal basilar artery suggested this can also be correlated with CTA head and neck. 3. High-grade stenosis questioned at the mid cavernous left ICA, not previously shown. Echocardiogram (11/27/17): LV normal size, Mild concentric left ventricular hypertrophy and systolic function mildly impaired. Refer to the EMR for complete Neck MRA: Report reviewed. ECHO repeat: will follow up on results Carotid Doppler Study: pending read Please do not hesitate to call back with any new developments, data updates or questions. Thank you for the opportunity to participate in the care of this patient. Patient seen and case discussed in detail with Dr. Yessica Lopez PGY1 <Bernardino Juan - Last Filed: 04/30/18 10:12> Objective - Vital Signs/Intake and Output Vital Signs (last 24 hours): Temp Pulse Resp BP Pulse Ox 98.7 F 56 L 20 161/71 H 94 L 04/23/18 07:00 04/23/18 07:06 04/23/18 07:00 04/23/18 07:00 04/23/18 07:00 - Labs Labs: 04/23/18 06:07 04/23/18 06:07 PT 13.4 SECONDS (9.7-12.2) H 04/16/18 20:17 INR 1.2 04/16/18 20:17 APTT 32 SECONDS (21-34) 04/16/18 20:17 Attending/Attestation - Attestation I have personally seen and examined this patient.: Yes I have fully participated in the care of the patient.: Yes I have reviewed all pertinent clinical information, including history, physical exam and plan: Yes Notes (Text): 04/30/18 10:11 I agree with the assessment and plan. The patient's symptoms are likely due to vascular demntia with toxic-metabolic encephalopathy. Will continue conservative management and work-up.
--- NOTE | 2018-04-18 22:39 | CP.PCM.PN ---
Subjective - Date & Time of Evaluation Date of Evaluation: 04/18/18 Time of Evaluation: 16:10 - Subjective Subjective: Patient seen and evaluated No cardiac symptoms noted Objective - Vital Signs/Intake and Output Vital Signs (last 24 hours): Temp Pulse Resp BP Pulse Ox 98.4 F 86 20 156/52 H 98 04/18/18 15:00 04/18/18 17:04 04/18/18 15:00 04/18/18 15:00 04/18/18 21:00 - Medications Medications: Current Medications Acetaminophen (Tylenol 650 Mg Supp) 650 mg [place] Q6 PRN PRN Reason: Pain, moderate (4-7) Last Admin: 04/17/18 19:57 Dose: 650 mg Aspirin (Aspirin Supp) 300 mg OH DAILY [facility] Last Admin: 04/18/18 10:30 Dose: 300 mg Clopidogrel Bisulfate (Plavix) 75 mg PO DAILY [facility] Last Admin: 04/18/18 09:12 Dose: Not Given Dextrose (Dextrose 50% Inj) 0 ml IV STAT PRN; Protocol PRN Reason: Hypoglycemia Protocol Dextrose (Glutose 15) 0 gm PO ONCE PRN; Protocol PRN Reason: Hypoglycemia Protocol Enalaprilat (Vasotec) 2.5 mg IVP Q6 PRN PRN Reason: Systolic Blood Pressure Enoxaparin Sodium (Lovenox) 30 mg SC DAILY [facility] Last Admin: 04/18/18 09:06 Dose: 30 mg Famotidine (Pepcid) 20 mg PO BID [facility] Last Admin: 04/18/18 17:51 Dose: 20 mg Glucagon (Glucagen Diagnostic Kit) 0 mg IM STAT PRN; Protocol PRN Reason: Hypoglycemia Protocol Dextrose (Dextrose 5% In Water 1000 Ml) 1,000 mls @ 0 mls/hr IV .Q0M PRN; Protocol PRN Reason: Hypoglycemia Protocol Piperacillin Sod/Tazobactam (Sod 3.375 gm/ Sodium Chloride) 100 mls @ 200 mls/hr IVPB Q8H [facility]; Protocol Last Admin: 04/18/18 17:49 Dose: 200 mls/hr Vancomycin/Sodium Chloride (Vancomycin 1 Gm/Ns 200 Ml) 1 gm in 200 mls @ 133.333 mls/hr IVPB Q24H [facility]; Protocol Last Admin: 04/18/18 17:50 Dose: 133.333 mls/hr Sodium Chloride (Sodium Chloride 0.9%) 1,000 mls @ 100 mls/hr IV .Q10H [facility] Last Admin: 04/18/18 21:14 Dose: 100 mls/hr Insulin Aspart (Novolog) 0 unit SC ACHS [facility]; Protocol Last Admin: 04/18/18 21:13 Dose: Not Given Rosuvastatin Calcium (Crestor) 10 mg PO HS [facility] Last Admin: 04/18/18 21:14 Dose: 10 mg - Labs Labs: 04/18/18 07:22 04/18/18 07:22 PT 13.4 SECONDS (9.7-12.2) H 04/16/18 20:17 INR 1.2 04/16/18 20:17 APTT 32 SECONDS (21-34) 04/16/18 20:17
[2018-04-19] MEDS: Piperacillin/Tazobact 3.375 GM in Sodium Chloride 100 ML IVPB SCH ×3 (00:50→17:28)
[2018-04-19] MEDS: Sodium Chloride 0.9% 1,000 ML IV SCH ×2 (06:09→15:46)
[2018-04-19 08:18] LABS: BASO # 0.1 K/uL (0.0-0.2); BASO % 0.6 % (0.0-2.0); EOS # 0.5 K/uL (0.0-0.7); EOS % 4.5 % (0.0-4.0); HEMOGLOBIN 11.1 g/dL (11.0-16.0); LYMPH # 2.2 K/uL (1.0-4.3); MEAN CELL VOLUME 85.9 fL (81.0-99.0); MEAN CORPUSCULAR HEMOGLOBIN 29.6 pg (27.0-31.0); MEAN CORPUSCULAR HGB CONC 34.4 g/dL (33.0-37.0); MEAN PLATELET VOLUME 8.6 fL (7.2-11.7); MONO # 1.1 K/uL (0.0-0.8); NEUT # 7.9 K/uL (1.8-7.0); NEUT % 66.9 % (50.0-75.0); RBC 3.74 Mil/uL (3.80-5.20); RED CELL DISTRIBUTION WIDTH 13.1 % (11.5-14.5); WHITE BLOOD COUNT 11.8 K/uL (4.8-10.8)
[2018-04-19 08:40] LABS: ALB/GLOB RATIO 1.1 (1.0-2.1); ALBUMIN 3.6 g/dL (3.5-5.0); ALT/SGPT 55 U/L (9-52); AST/SGOT 45 U/L (14-36); BLOOD UREA NITROGEN 7 mg/dL (7-17); CALCIUM 9.2 mg/dl (8.6-10.4); GFR NON-AFRICAN AMERICAN > 60
[2018-04-19] MEDS: (Novolog) Insulin Aspart, Recombinant 100 u/ml 10 ml vial SC SCH ×4 (08:47→21:36)
[2018-04-19 09:01] LABS: HEPATITIS B SURFACE AG Negative (NEGATIVE)
[2018-04-19 09:07] LABS: HEPATITIS A IGM NEGATIVE (NEGATIVE); HEPATITIS B CORE AB NEGATIVE (NEGATIVE)
[2018-04-19] MEDS: diltiaZEM 240 mg/24 Hours CD Cap PO SCH (09:10)
[2018-04-19] MEDS: Enoxaparin 30 mg Syringe SC SCH (09:11)
[2018-04-19 09:18] LABS: HEPATITIS C ANTIBODY NEGATIVE (NEGATIVE)
--- NOTE | 2018-04-19 10:26 | CP.PCM.PN ---
Subjective - Date & Time of Evaluation Date of Evaluation: 04/19/18 Time of Evaluation: 10:25 - Subjective Subjective: Medicine Progress Note - Dr Wu Patient seen and examined at bedside. Per nursing no acute events overnight. Patient reports having lower abdominal pain. Per the patients daughter, she reports not being able to urinate. Patient has been tolerating diet. No episodes of diarrhea today. Offers no other complaints. Objective - Vital Signs/Intake and Output Vital Signs (last 24 hours): Temp Pulse Resp BP Pulse Ox 98.5 F 82 20 150/61 96 04/19/18 07:00 04/19/18 07:00 04/19/18 07:00 04/19/18 07:00 04/19/18 07:00 Intake and Output: 04/19/18 04/19/18 06:59 18:59 Intake Total 800 Balance 800 - Medications Medications: Current Medications Acetaminophen (Tylenol 650 Mg Supp) 650 mg [place] Q6 PRN PRN Reason: Pain, moderate (4-7) Last Admin: 04/17/18 19:57 Dose: 650 mg Aspirin (Aspirin Chewable) 81 mg PO DAILY [facility] Last Admin: 04/19/18 09:10 Dose: 81 mg Carvedilol (Coreg) 3.125 mg PO BID [facility] Last Admin: 04/19/18 09:10 Dose: 3.125 mg Clopidogrel Bisulfate (Plavix) 75 mg PO DAILY [facility] Last Admin: 04/19/18 09:10 Dose: 75 mg Dextrose (Dextrose 50% Inj) 0 ml IV STAT PRN; Protocol PRN Reason: Hypoglycemia Protocol Dextrose (Glutose 15) 0 gm PO ONCE PRN; Protocol PRN Reason: Hypoglycemia Protocol Diltiazem HCl (Cardizem Cd) 240 mg PO DAILY [facility] Last Admin: 04/19/18 09:10 Dose: 240 mg Enoxaparin Sodium (Lovenox) 30 mg SC DAILY [facility] Last Admin: 04/19/18 09:11 Dose: 30 mg Famotidine (Pepcid) 20 mg PO BID [facility] Last Admin: 04/19/18 09:10 Dose: 20 mg Glucagon (Glucagen Diagnostic Kit) 0 mg IM STAT PRN; Protocol PRN Reason: Hypoglycemia Protocol Dextrose (Dextrose 5% In Water 1000 Ml) 1,000 mls @ 0 mls/hr IV .Q0M PRN; Protocol PRN Reason: Hypoglycemia Protocol Piperacillin Sod/Tazobactam (Sod 3.375 gm/ Sodium Chloride) 100 mls @ 200 mls/hr IVPB Q8H [facility]; Protocol Last Admin: 04/19/18 00:50 Dose: 200 mls/hr Vancomycin/Sodium Chloride (Vancomycin 1 Gm/Ns 200 Ml) 1 gm in 200 mls @ 133.333 mls/hr IVPB Q24H [facility]; Protocol Last Admin: 04/18/18 17:50 Dose: 133.333 mls/hr Sodium Chloride (Sodium Chloride 0.9%) 1,000 mls @ 100 mls/hr IV .Q10H [facility] Last Admin: 04/19/18 06:09 Dose: Not Given Insulin Aspart (Novolog) 0 unit SC ACHS [facility]; Protocol Last Admin: 04/19/18 08:47 Dose: Not Given Rosuvastatin Calcium (Crestor) 10 mg PO HS [facility] Last Admin: 04/18/18 21:14 Dose: 10 mg - Labs Labs: 04/19/18 08:09 04/19/18 08:09 PT 13.4 SECONDS (9.7-12.2) H 04/16/18 20:17 INR 1.2 04/16/18 20:17 APTT 32 SECONDS (21-34) 04/16/18 20:17 - Additional Findings Additional findings: - Constitutional Appears: No Acute Distress - Head Exam Head Exam: ATRAUMATIC - Eye Exam Eye Exam: EOMI - ENT Exam ENT Exam: Mucous Membranes Moist - Respiratory Exam Respiratory Exam: Clear to Ausculation Bilateral, NORMAL BREATHING PATTERN. absent: Prolonged Expiratory Phase, Rhonchi, Wheezes, Respiratory Distress - Cardiovascular Exam Cardiovascular Exam: REGULAR RHYTHM, +S1, +S2. absent: Murmur - GI/Abdominal Exam GI & Abdominal Exam: Soft, Normal Bowel Sounds, Rebound. absent: Distended, Guarding, Rigid Additional comments: Lower abdominal tenderness on palpation - Extremities Exam Extremities Exam: Normal Inspection. absent: Calf Tenderness, Pedal Edema - Back Exam Back Exam: absent: CVA tenderness (L), CVA tenderness (R) - Neurological Exam Neurological Exam: Alert, Awake, Oriented x3 - Psychiatric Exam Psychiatric exam: Normal Affect - Skin Skin Exam: Normal Color Assessment and Plan - Assessment and Plan (Free Text) Assessment: (1) Confusion and disorientation Assessment & Plan: Neurohospitalist and Neurology, Dr. Redmond on board * Management as per recommendation * EGG report pending R/O infection and CVA Febrile, Tmax: 100.6 Leukocytosis * Tylenol 325mg VA Q4H PRN for fever> 100.4 * UA is negative, Blood culture showing no growth x 48 hours, throat cultures negative * Prophylactic antibiotics; Vancomycin 1gm IV daily and Zosyn 3.375gm IV Q8H * NS @ 100mls/hr Lipid Panel: - TGL: 159, Chol:122, LDL:61 and HDL:42 Chest X-ray: No focal infiltrate or effusion. Calcification at the aortic knob. Right paratracheal prominence likely represents prominent vasculature. Tortuous aorta. Mild cardiomegaly. Degenerative changes in the spine. HEAD CT: No acute intracranial abnormality. Chronic areas of encephalomalacia as described above. Chronic microvascular ischemic change. Prominent ventricles. If symptoms persists, consider correlation with MRI. Head MRI: Chronic infarcts identified in the right frontal lobe as well as left parietal occipital lobe with a small chronic infarct reiterated at the right occipital lobe. Occluded right ICA identified. No definite acute or subacute brain infarction identified at this time. Chronic lacune left thalamus. Two chronic lacunae at the right cerebellum superiorly. 2. Reiterated age related neuro degenerative findings. 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 Right MARS and MCA at least partially collateralized by flow through the anterior communicating artery. Changes in collateralization can be correlated by repeat CTA head and neck if clinically warranted. 2. High-grade stenosis proximal basilar artery suggested this can also be correlated with CTA head and neck. 3. High-grade stenosis questioned at the mid cavernous left ICA, not previously shown. Echocardiogram (11/27/17): LV normal size, Mild concentric left ventricular hypertrophy and systolic function mildly impaired. Refer to the EMR for complete Neck MRA: Reiteration of occluded right cervical through intracranial ICA. Collateralization of right MARS is appreciated once again and mildly into the right MCA with comparison by follow-up CT angiogram available if clinically warranted. The left ICA remains patent with a mild stenosis questioned at the p roximal left ICA. 2. Question of interval occlusion proximal to mid left vertebral artery with mild flow identified at the distal cervical segment. Follow-up CT angiogram of the head and neck is advised for better characterization. Patent right vertebral artery. F/u repeat echo Status: Acute (2) History of coronary artery disease Assessment & Plan: [employer], Dr. Coley on board 2 stent placement; 2010 Plavix 75mg PO daily; Carvedilol 3.125mg PO BID; ASA 300mg VA daily Status: Acute (3) History of CVA (cerebrovascular accident) Assessment & Plan: Lipid Panel: - TGL: 159, Chol:122, LDL:61 and HDL:42 Plavix 75mg PO daily; Crestor 10mg PO HS; ASA 81mg PO daily Status: Acute (4) Diabetes mellitus Assessment & Plan: HgbA1C: 7.8 Accuchecks ACHS ISS-Low dose Hypoglycemia protocol Status: Chronic (5) Hypertension Assessment & Plan: Currently controlled Home medication: * Cardizem CD 240mg PO QD, * Coreg 3.125mg PO BID Status: Acute (6) Major depressive disorder with psychotic features Assessment & Plan: Home medications: * Risperidone 0.25mg PO HS * Mirtazapine 15mg PO HS Status: Chronic (7) Diarrhea Assessment & Plan: Leukocytosis is improving C diff is negative, fecal leukocytes negative F/U Stool culture, Ova and parasite, and stool occult Infectious disease on consult, help appreciated CT abd/pelvis ordered, unable to be done today due to contrast from barium swal low Status: Acute (8) Urinary symptoms Assessment & Plan: Monitor urinary output Repeat UA and Urine culture ordered (9) Prophylactic measure Assessment & Plan: GI: Pepcid 20mg PO BID DVT: SCDs, Lovenox 40mg SC daily All plans and management discussed with Dr. Jazmin Luke DO PGY-2
--- NOTE | 2018-04-19 11:08 | RAD ---
Date of service: 04/19/2018 HISTORY: abdominal pain COMPARISON: Abdomen obstructive series 03/03/2018. FINDINGS: BOWEL: Nonobstructive bowel gas pattern is identified. Significant retained oral contrast material seen throughout the large bowel precluding performing a CT exam as this would generate tremendous artifacts. Oral contrast is also seen retained mildly at the stomach. No prominent free intra peritoneal gas collection. Surgical clips in the right upper quadrant suggesting prior cholecystectomy. The presence of retained oral contrast precludes identification of potential abnormal intra-abdominal or intrapelvic calcifications. BONES: Limited multilevel lumbar spondylosis. Degenerative sacroiliac and hip changes are seen bilaterally. Diffuse osteopenia suggests osteoporosis. OTHER FINDINGS: None. IMPRESSION: Nonobstructive bowel gas pattern. Significant retention oral contrast material is seen throughout the large bowel as well as mildly at the stomach. Prior cholecystectomy suggested.
--- NOTE | 2018-04-19 11:52 | VASCLAB ---
Date of service: 04/18/2018 PROCEDURE: Carotid Duplex Exam. HISTORY: AMS COMPARISON: None available. TECHNIQUE: Grayscale and duplex Doppler evaluation of the cervical carotid and vertebral arteries were performed. The common carotid, carotid bifurcations and cervical Internal Carotid Artery (ICA) and proximal External Carotid Artery (ECA) were evaluated. The vertebral arteries were evaluated for gross patency and flow direction. Report prepared by Jorge Mcgee, BS, RVT FINDINGS: RIGHT CAROTID ARTERIES: 1. Common Carotid Artery: Minimal plaque formation of the right CCA which does not result in hemodynamically significant stenosis. Maximum Peak Systolic velocity: 64 cm/sec: End-diastolic velocity 0 cm/sec. 2. Carotid Bifurcation: Calcific plaque formation. Maximum Peak Systolic velocity: 90 cm/sec: End-diastolic velocity 6 cm/sec. 3. Internal Carotid Artery: Moderate plaque formation of the right proximal ICA which results in hemodynamically significant stenosis. Plaque description: Calcific 3.1. Proximal Segment: Peak systolic velocity 43 cm/sec: End-diastolic velocity 0 cm/sec - % stenosis 3.2. Middle Segment: Peak systolic velocity 24 cm/sec: End-diastolic velocity 0 cm/sec - % stenosis 3.3. Distal Segment: Peak systolic velocity 32 cm/sec: End-diastolic velocity 0 cm/sec - % stenosis 4. External Carotid Artery: No significant focal plaque formation. Peak systolic velocity 153 cm/sec 5. ICA/CCA Ratio: 1.4 LEFT CAROTID ARTERIES: 1. Common Carotid Artery: Minimal plaque formation of the left CCA which does not result in hemodynamically significant stenosis. Maximum Peak Systolic velocity: 76 cm/sec: End-diastolic velocity 18 cm/sec. 2. Carotid Bifurcation: Calcific plaque formation. Maximum Peak Systolic velocity: 105 cm/sec: End-diastolic velocity 25 cm/sec. 3. Internal Carotid Artery: Severe plaque formation of the left proximal ICA which results in a hemodynamically significant stenosis. Plaque description: Calcific 3.1. Proximal Segment: Peak systolic velocity 197 cm/sec: End-diastolic velocity 60 cm/sec - % stenosis 60-70% 3.2. Middle Segment: Peak systolic velocity 86 cm/sec: End-diastolic velocity 22 cm/sec - % stenosis 0-15% 3.3. Distal Segment: Peak systolic velocity 109 cm/sec: End-diastolic velocity 28 cm/sec - % stenosis 0-15% 4. External Carotid Artery: No significant focal plaque formation. Peak systolic velocity 161 cm/sec 5. ICA/CCA Ratio: 2.6 VERTEBRAL ARTERIES: 1. Right Vertebral Artery: The right vertebral artery flow direction is antegrade. 2. Left Vertebral Artery: The left vertebral artery flow direction is antegrade. OTHER FINDINGS: 1. Right Brachial Blood pressure: mmHg. 2. Left Brachial Blood pressure: mmHg. IMPRESSION: RIGHT: The right internal carotid artery absent end-diastolic duplex waveforms are suggestive of more distal arterial occlusion. Clinical correlation recommended. LEFT: 60-70% stenosis of the left proximal ICA with moderate hemodynamic significance.
--- NOTE | 2018-04-19 18:00 | CP.PCM.PN ---
Subjective - Date & Time of Evaluation Date of Evaluation: 04/19/18 Time of Evaluation: 08:00 - Subjective Subjective: admitted with AMS and stroke like presentation No meningeal signs Neuro on board cultures pending empiric IV antibiotics started Objective - Vital Signs/Intake and Output Vital Signs (last 24 hours): Temp Pulse Resp BP Pulse Ox 98.5 F 67 20 129/69 97 04/19/18 15:05 04/19/18 16:00 04/19/18 15:05 04/19/18 15:05 04/19/18 15:05 Intake and Output: 04/19/18 04/19/18 06:59 18:59 Intake Total 800 1180 Balance 800 1180 - Medications Medications: Current Medications Acetaminophen (Tylenol 650 Mg Supp) 650 mg [place] Q6 PRN PRN Reason: Pain, moderate (4-7) Last Admin: 04/17/18 19:57 Dose: 650 mg Aspirin (Aspirin Chewable) 81 mg PO DAILY [facility] Last Admin: 04/19/18 09:10 Dose: 81 mg Carvedilol (Coreg) 3.125 mg PO BID [facility] Last Admin: 04/19/18 09:10 Dose: 3.125 mg Clopidogrel Bisulfate (Plavix) 75 mg PO DAILY [facility] Last Admin: 04/19/18 09:10 Dose: 75 mg Dextrose (Dextrose 50% Inj) 0 ml IV STAT PRN; Protocol PRN Reason: Hypoglycemia Protocol Dextrose (Glutose 15) 0 gm PO ONCE PRN; Protocol PRN Reason: Hypoglycemia Protocol Diltiazem HCl (Cardizem Cd) 240 mg PO DAILY [facility] Last Admin: 04/19/18 09:10 Dose: 240 mg Enoxaparin Sodium (Lovenox) 30 mg SC DAILY [facility] Last Admin: 04/19/18 09:11 Dose: 30 mg Famotidine (Pepcid) 20 mg PO BID [facility] Last Admin: 04/19/18 09:10 Dose: 20 mg Glucagon (Glucagen Diagnostic Kit) 0 mg IM STAT PRN; Protocol PRN Reason: Hypoglycemia Protocol Dextrose (Dextrose 5% In Water 1000 Ml) 1,000 mls @ 0 mls/hr IV .Q0M PRN; Protocol PRN Reason: Hypoglycemia Protocol Piperacillin Sod/Tazobactam (Sod 3.375 gm/ Sodium Chloride) 100 mls @ 200 mls/hr IVPB Q8H [facility]; Protocol Last Admin: 04/19/18 12:10 Dose: 200 mls/hr Vancomycin/Sodium Chloride (Vancomycin 1 Gm/Ns 200 Ml) 1 gm in 200 mls @ 133.333 mls/hr IVPB Q24H [facility]; Protocol Last Admin: 04/18/18 17:50 Dose: 133.333 mls/hr Sodium Chloride (Sodium Chloride 0.9%) 1,000 mls @ 100 mls/hr IV .Q10H [facility] Last Admin: 04/19/18 06:09 Dose: Not Given Insulin Aspart (Novolog) 0 unit SC ACHS [facility]; Protocol Last Admin: 04/19/18 13:04 Dose: 1 u Rosuvastatin Calcium (Crestor) 10 mg PO HS [facility] Last Admin: 04/18/18 21:14 Dose: 10 mg - Labs Labs: 04/19/18 08:09 04/19/18 08:09 PT 13.4 SECONDS (9.7-12.2) H 04/16/18 20:17 INR 1.2 04/16/18 20:17 APTT 32 SECONDS (21-34) 04/16/18 20:17 - Constitutional Appears: Non-toxic, Chronically Ill - Head Exam Head Exam: NORMOCEPHALIC - Eye Exam Eye Exam: absent: Scleral icterus - ENT Exam ENT Exam: Mucous Membranes Dry - Neck Exam Neck Exam: absent: Lymphadenopathy - Respiratory Exam Respiratory Exam: Decreased Breath Sounds - Cardiovascular Exam Cardiovascular Exam: REGULAR RHYTHM - GI/Abdominal Exam GI & Abdominal Exam: Distended Assessment and Plan (1) Confusion and disorientation Status: Acute (2) Diarrhea Status: Acute (3) History of CVA (cerebrovascular accident) Status: Acute (4) History of coronary artery disease Status: Acute (5) Hypertension Status: Acute (6) Major depressive disorder Status: Acute (7) Diabetes mellitus Status: Chronic (8) History of CVA (cerebrovascular accident) Status: Chronic - Assessment and Plan (Free Text) Assessment: admitted with AMS and stroke like presentation No meningeal signs Neuro on board cultures pending empiric IV antibiotics started
[2018-04-19] MEDS: Vancomycin 1 gm/NS 200 ml 1 GM/200 ML BAG IVPB SCH (18:36)
--- NOTE | 2018-04-19 22:41 | CP.PCM.PN ---
Subjective - Date & Time of Evaluation Date of Evaluation: 04/19/18 Time of Evaluation: 16:20 - Subjective Subjective: Patient seen and examined at bedside. Denies chest pain and dyspnea Physical Examination - Additional Findings Additional findings: - Constitutional Appears: No Acute Distress - Head Exam Head Exam: ATRAUMATIC - Eye Exam Eye Exam: EOMI - ENT Exam ENT Exam: Mucous Membranes Moist - Respiratory Exam Respiratory Exam: Clear to Ausculation Bilateral, NORMAL BREATHING PATTERN. absent: Prolonged Expiratory Phase, Rhonchi, Wheezes, Respiratory Distress - Cardiovascular Exam Cardiovascular Exam: REGULAR RHYTHM, +S1, +S2. absent: Murmur - GI/Abdominal Exam GI & Abdominal Exam: Soft, Normal Bowel Sounds, Rebound. absent: Distended, Guarding, Rigid Additional comments: Lower abdominal tenderness on palpation - Extremities Exam Extremities Exam: Normal Inspection. absent: Calf Tenderness, Pedal Edema - Back Exam Back Exam: absent: CVA tenderness (L), CVA tenderness (R) - Neurological Exam Neurological Exam: Alert, Awake, Oriented x3 - Psychiatric Exam Psychiatric exam: Normal Affect - Skin Skin Exam: Normal Color Assessment and Plan - Assessment and Plan (Free Text) Assessment: (1) Confusion and disorientation Assessment & Plan: Neurohospitalist and Neurology, Dr. Redmond on board * Management as per recommendation * EGG report pending R/O infection and CVA Febrile, Tmax: 100.6 Leukocytosis * Tylenol 325mg ID Q4H PRN for fever> 100.4 * UA is negative, Blood culture showing no growth x 48 hours, throat cultures negative * Prophylactic antibiotics; Vancomycin 1gm IV daily and Zosyn 3.375gm IV Q8H * NS @ 100mls/hr Lipid Panel: - TGL: 159, Chol:122, LDL:61 and HDL:42 Chest X-ray: No focal infiltrate or effusion. Calcification at the aortic knob. Right paratracheal prominence likely represents prominent vasculature. Tortuous aorta. Mild cardiomegaly. Degenerative changes in the spine. HEAD CT: No acute intracranial abnormality. Chronic areas of encephalomalacia as described above. Chronic microvascular ischemic change. Prominent ventricles. If symptoms persists, consider correlation with MRI. Head MRI: Chronic infarcts identified in the right frontal lobe as well as left parietal occipital lobe with a small chronic infarct reiterated at the right occipital lobe. Occluded right ICA identified. No definite acute or subacute brain infarction identified at this time. Chronic lacune left thalamus. Two chronic lacunae at the right cerebellum superiorly. 2. Reiterated age related neuro degenerative findings. 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 Right MARS and MCA at least partially collateralized by flow through the anterior communicating artery. Changes in collateralization can be correlated by repeat CTA head and neck if clinically warranted. 2. High-grade stenosis proximal basilar artery suggested this can also be correlated with CTA head and neck. 3. High-grade stenosis questioned at the mid cavernous left ICA, not previously shown. Echocardiogram (11/27/17): LV normal size, Mild concentric left ventricular hypertrophy and systolic function mildly impaired. Refer to the EMR for complete Neck MRA: Reiteration of occluded right cervical through intracranial ICA. Collateralization of right MARS is appreciated once again and mildly into the right MCA with comparison by follow-up CT angiogram available if clinically warranted. The left ICA remains patent with a mild stenosis questioned at the proximal left ICA. 2. Question of interval occlusion proximal to mid left vertebral artery with mild flow identified at the distal cervical segment. Follow-up CT angiogram of the head and neck is advised for better characterization. Patent right vertebral artery. F/u repeat echo Status: Acute (2) History of coronary artery disease Assessment & Plan: 2 stent placement; 2010 Plavix 75mg PO daily; Carvedilol 3.125mg PO BID; ASA 300mg ID daily Status: Acute (3) History of CVA (cerebrovascular accident) Assessment & Plan: Lipid Panel: - TGL: 159, Chol:122, LDL:61 and HDL:42 Plavix 75mg PO daily; Crestor 10mg PO HS; ASA 81mg PO daily Status: Acute (4) Diabetes mellitus Assessment & Plan: HgbA1C: 7.8 Accuchecks ACHS ISS-Low dose Hypoglycemia protocol Status: Chronic (5) Hypertension Assessment & Plan: Currently controlled Home medication: * Cardizem CD 240mg PO QD, * Coreg 3.125mg PO BID Status: Acute (6) Major depressive disorder with psychotic features Assessment & Plan: Home medications: * Risperidone 0.25mg PO HS * Mirtazapine 15mg PO HS Status: Chronic (7) Diarrhea Assessment & Plan: Leukocytosis is improving C diff is negative, fecal leukocytes negative F/U Stool culture, Ova and parasite, and stool occult Infectious disease on consult, help appreciated CT abd/pelvis ordered, unable to be done today due to contrast from barium s wallow Status: Acute (8) Urinary symptoms Assessment & Plan: Monitor urinary output Repeat UA and Urine culture ordered (9) Prophylactic measure Assessment & Plan: GI: Pepcid 20mg PO BID DVT: SCDs, Lovenox 40mg SC daily No further cardiac work up at this time Objective - Vital Signs/Intake and Output Vital Signs (last 24 hours): Temp Pulse Resp BP Pulse Ox 98.5 F 67 20 129/69 97 04/19/18 15:05 04/19/18 16:00 04/19/18 15:05 04/19/18 15:05 04/19/18 15:05 Intake and Output: 04/19/18 04/20/18 18:59 06:59 Intake Total 1180 Balance 1180 - Medications Medications: Current Medications Acetaminophen (Tylenol 650 Mg Supp) 650 mg [place] Q6 PRN PRN Reason: Pain, moderate (4-7) Last Admin: 04/17/18 19:57 Dose: 650 mg Aspirin (Aspirin Chewable) 81 mg PO DAILY [facility] Last Admin: 04/19/18 09:10 Dose: 81 mg Carvedilol (Coreg) 3.125 mg PO BID [facility] Last Admin: 04/19/18 18:28 Dose: 3.125 mg Clopidogrel Bisulfate (Plavix) 75 mg PO DAILY [facility] Last Admin: 04/19/18 09:10 Dose: 75 mg Dextrose (Dextrose 50% Inj) 0 ml IV STAT PRN; Protocol PRN Reason: Hypoglycemia Protocol Dextrose (Glutose 15) 0 gm PO ONCE PRN; Protocol PRN Reason: Hypoglycemia Protocol Diltiazem HCl (Cardizem Cd) 240 mg PO DAILY [facility] Last Admin: 04/19/18 09:10 Dose: 240 mg Enoxaparin Sodium (Lovenox) 30 mg SC DAILY [facility] Last Admin: 04/19/18 09:11 Dose: 30 mg Famotidine (Pepcid) 20 mg PO BID [facility] Last Admin: 04/19/18 18:28 Dose: 20 mg Glucagon (Glucagen Diagnostic Kit) 0 mg IM STAT PRN; Protocol PRN Reason: Hypoglycemia Protocol Dextrose (Dextrose 5% In Water 1000 Ml) 1,000 mls @ 0 mls/hr IV .Q0M PRN; Protocol PRN Reason: Hypoglycemia Protocol Piperacillin Sod/Tazobactam (Sod 3.375 gm/ Sodium Chloride) 100 mls @ 200 mls/hr IVPB Q8H [facility]; Protocol Last Admin: 04/19/18 17:28 Dose: 200 mls/hr Vancomycin/Sodium Chloride (Vancomycin 1 Gm/Ns 200 Ml) 1 gm in 200 mls @ 133.333 mls/hr IVPB Q24H [facility]; Protocol Last Admin: 04/19/18 18:36 Dose: 133.333 mls/hr Sodium Chloride (Sodium Chloride 0.9%) 1,000 mls @ 100 mls/hr IV .Q10H [facility] Last Admin: 04/19/18 15:46 Dose: Not Given Insulin Aspart (Novolog) 0 unit SC ACHS [facility]; Protocol Last Admin: 04/19/18 21:36 Dose: Not Given Rosuvastatin Calcium (Crestor) 10 mg PO HS [facility] Last Admin: 04/18/18 21:14 Dose: 10 mg - Labs Labs: 04/19/18 08:09 04/19/18 08:09 PT 13.4 SECONDS (9.7-12.2) H 04/16/18 20:17 INR 1.2 04/16/18 20:17 APTT 32 SECONDS (21-34) 04/16/18 20:17
[2018-04-20] MEDS: Piperacillin/Tazobact 3.375 GM in Sodium Chloride 100 ML IVPB SCH ×2 (00:37→09:32)
[2018-04-20] MEDS: Sodium Chloride 0.9% 1,000 ML IV SCH ×3 (04:09→21:00)
[2018-04-20 07:13] LABS: BASO # 0.1 K/uL (0.0-0.2); BASO % 0.7 % (0.0-2.0); EOS # 0.5 K/uL (0.0-0.7); EOS % 5.2 % (0.0-4.0); HEMOGLOBIN 10.9 g/dL (11.0-16.0); LYMPH # 2.6 K/uL (1.0-4.3); LYMPH % 26.6 % (20.0-40.0); MEAN CELL VOLUME 85.5 fL (81.0-99.0); MEAN CORPUSCULAR HEMOGLOBIN 29.6 pg (27.0-31.0); MEAN CORPUSCULAR HGB CONC 34.6 g/dL (33.0-37.0); MEAN PLATELET VOLUME 8.5 fL (7.2-11.7); MONO # 1.2 K/uL (0.0-0.8); MONO % 12.4 % (0.0-10.0); NEUT # 5.4 K/uL (1.8-7.0); NEUT % 55.1 % (50.0-75.0); NRBC % 0.1 % (0.0-2.0); RBC 3.68 Mil/uL (3.80-5.20); RED CELL DISTRIBUTION WIDTH 13.1 % (11.5-14.5); WHITE BLOOD COUNT 9.9 K/uL (4.8-10.8)
[2018-04-20 07:35] LABS: ALB/GLOB RATIO 1.1 (1.0-2.1); ALBUMIN 3.4 g/dL (3.5-5.0); ALT/SGPT 72 U/L (9-52); AST/SGOT 48 U/L (14-36); BLOOD UREA NITROGEN 7 mg/dL (7-17); CALCIUM 9.1 mg/dl (8.6-10.4); GFR NON-AFRICAN AMERICAN > 60
[2018-04-20] MEDS: (Novolog) Insulin Aspart, Recombinant 100 u/ml 10 ml vial SC SCH ×4 (08:07→22:00)
[2018-04-20] MEDS ORDERED: Iohexol 240 (50 ml) PO ONE ×2 (09:00→10:45)
[2018-04-20] MEDS ORDERED: Magnesium Sulfate 1 gm in D5W 1 GM/100 ML BAG IVPB ONE (10:01)
--- NOTE | 2018-04-20 10:02 | CP.PCM.PN ---
Subjective - Date & Time of Evaluation Date of Evaluation: 04/20/18 Time of Evaluation: 09:45 - Subjective Subjective: PGY 2 Medicine progress note ( Dr. Wu's service) Patient was seen and examined at bedside, with one of her daughters present. As per daughter, patient is with improved symptoms. Patient is tolerating modified diet. Patient is more awake, alert and with clear speech. Patient denies fever, chills, nausea, vomiting, abdominal pain but patient is still with loose stool. Objective - Vital Signs/Intake and Output Vital Signs (last 24 hours): Temp Pulse Resp BP Pulse Ox 98.5 F 66 20 167/71 H 98 04/20/18 07:40 04/20/18 07:40 04/20/18 07:40 04/20/18 07:40 04/20/18 07:40 Intake and Output: 04/20/18 04/20/18 06:59 18:59 Intake Total 2180 Balance 2180 - Medications Medications: Current Medications Acetaminophen (Tylenol 650 Mg Supp) 650 mg [place] Q6 PRN PRN Reason: Pain, moderate (4-7) Last Admin: 04/17/18 19:57 Dose: 650 mg Aspirin (Aspirin Chewable) 81 mg PO DAILY [facility] Last Admin: 04/19/18 09:10 Dose: 81 mg Carvedilol (Coreg) 3.125 mg PO BID [facility] Last Admin: 04/19/18 18:28 Dose: 3.125 mg Clopidogrel Bisulfate (Plavix) 75 mg PO DAILY [facility] Last Admin: 04/19/18 09:10 Dose: 75 mg Dextrose (Dextrose 50% Inj) 0 ml IV STAT PRN; Protocol PRN Reason: Hypoglycemia Protocol Dextrose (Glutose 15) 0 gm PO ONCE PRN; Protocol PRN Reason: Hypoglycemia Protocol Diltiazem HCl (Cardizem Cd) 240 mg PO DAILY [facility] Last Admin: 04/19/18 09:10 Dose: 240 mg Enoxaparin Sodium (Lovenox) 30 mg SC DAILY [facility] Last Admin: 04/19/18 09:11 Dose: 30 mg Famotidine (Pepcid) 20 mg PO BID [facility] Last Admin: 04/19/18 18:28 Dose: 20 mg Glucagon (Glucagen Diagnostic Kit) 0 mg IM STAT PRN; Protocol PRN Reason: Hypoglycemia Protocol Dextrose (Dextrose 5% In Water 1000 Ml) 1,000 mls @ 0 mls/hr IV .Q0M PRN; Protocol PRN Reason: Hypoglycemia Protocol Piperacillin Sod/Tazobactam (Sod 3.375 gm/ Sodium Chloride) 100 mls @ 200 mls/hr IVPB Q8H [facility]; Protocol Last Admin: 04/20/18 09:32 Dose: 200 mls/hr Vancomycin/Sodium Chloride (Vancomycin 1 Gm/Ns 200 Ml) 1 gm in 200 mls @ 133.333 mls/hr IVPB Q24H [facility]; Protocol Last Admin: 04/19/18 18:36 Dose: 133.333 mls/hr Sodium Chloride (Sodium Chloride 0.9%) 1,000 mls @ 100 mls/hr IV .Q10H [facility] Last Admin: 04/20/18 04:09 Dose: 100 mls/hr Magnesium Sulfate/Dextrose (Magnesium Sulfate 1 Gm/100 Ml D5w) 1 gm in 100 mls @ 200 mls/hr IVPB ONCE ONE Stop: 04/20/18 10:30 Insulin Aspart (Novolog) 0 unit SC ACHS [facility]; Protocol Last Admin: 04/20/18 08:07 Dose: Not Given Rosuvastatin Calcium (Crestor) 10 mg PO HS [facility] Last Admin: 04/19/18 22:08 Dose: Not Given - Labs Labs: 04/20/18 06:54 04/20/18 06:54 PT 13.4 SECONDS (9.7-12.2) H 04/16/18 20:17 INR 1.2 04/16/18 20:17 APTT 32 SECONDS (21-34) 04/16/18 20:17 - Constitutional Appears: No Acute Distress - Head Exam Head Exam: ATRAUMATIC, NORMAL INSPECTION - Eye Exam Eye Exam: EOMI - ENT Exam ENT Exam: Mucous Membranes Moist - Respiratory Exam Respiratory Exam: Clear to Ausculation Bilateral, NORMAL BREATHING PATTERN. absent: Rhonchi, Wheezes - Cardiovascular Exam Cardiovascular Exam: REGULAR RHYTHM, +S1, +S2 - GI/Abdominal Exam GI & Abdominal Exam: Soft, Normal Bowel Sounds. absent: Distended, Firm, Guarding, Rigid, Tenderness - Extremities Exam Extremities Exam: Normal Inspection. absent: Calf Tenderness, Full ROM, Pedal Edema - Neurological Exam Neurological Exam: Alert, Awake, Oriented x3 - Psychiatric Exam Psychiatric exam: Normal Affect, Normal Mood - Skin Skin Exam: Normal Color Assessment and Plan (1) Confusion and disorientation Assessment & Plan: Neurohospitalist and Neurology, Dr. Redmond on board * Management as per recommendation * EGG report pending R/O infection and CVA Febrile, Tmax: 100.6; Afebrile> 24 hours Leukocytosis - Resolved * Tylenol 325mg RI Q4H PRN for fever> 100.4 * UA is negative, Blood culture showing no growth x 48 hours, throat cultures negative * Prophylactic antibiotics; Vancomycin 1gm IV daily ( D/C 04/20/18) and Zosyn 3.375gm IV Q8H * Florastor 250mg PO BID * NS @ 100mls/hr Lipid Panel: - TGL: 159, Chol:122, LDL:61 and HDL:42 Chest X-ray: No focal infiltrate or effusion. Calcification at the aortic knob. Right paratracheal prominence likely represents prominent vasculature. Tortuous aorta. Mild cardiomegaly. Degenerative changes in the spine. HEAD CT: No acute intracranial abnormality. Chronic areas of encephalomalacia as described above. Chronic microvascular ischemic change. Prominent ventricles. If symptoms persists, consider correlation with MRI. Head MRI: Chronic infarcts identified in the right frontal lobe as well as left parietal occipital lobe with a small chronic infarct reiterated at the right occipital lobe. Occluded right ICA identified. No definite acute or subacute brain infarction identified at this time. Chronic lacune left thalamus. Two chronic lacunae at the right cerebellum superiorly. 2. Reiterated age related neuro degenerative findings. 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 Right MARS and MCA at least partially collateralized by flow through the anterior communicating artery. Changes in collateralization can be correlated by repeat CTA head and neck if clinically warranted. 2. High-grade stenosis proximal basilar artery suggested this can also be correlated with CTA head and neck. 3. High-grade stenosis questioned at the mid cavernous left ICA, not previously shown. Echocardiogram (11/27/17): LV normal size, Mild concentric left ventricular hypertrophy and systolic function mildly impaired. Refer to the EMR for complete Neck MRA: Reiteration of occluded right cervical through intracranial ICA. Collateralization of right MARS is appreciated once again and mildly into the right MCA with comparison by follow-up CT angiogram available if clinically warranted. The left ICA remains patent with a mild stenosis questioned at the proximal left ICA. 2. Question of interval occlusion proximal to mid left vertebral artery with mild flow identified at the distal cervical segment. Follow-up CT angiogram of the head and neck is advised for better characterizati on. Patent right vertebral artery. F/u repeat echo Status: Acute (2) History of coronary artery disease Assessment & Plan: [employer], Dr. Coley on board 2 stent placement; 2010 Plavix 75mg PO daily; Carvedilol 3.125mg PO BID; ASA 81mg PO daily Status: Acute (3) History of CVA (cerebrovascular accident) Assessment & Plan: Lipid Panel: - TGL: 159, Chol:122, LDL:61 and HDL:42 Plavix 75mg PO daily; Crestor 10mg PO HS; ASA 81mg PO daily Status: Acute (4) Diabetes mellitus Assessment & Plan: HgbA1C: 7.8 Accuchecks ACHS ISS-Low dose Hypoglycemia protocol Status: Chronic (5) Hypertension Assessment & Plan: Home medication: * Cardizem CD 240mg PO QD, * Coreg 3.125mg PO BID Status: Acute (6) Major depressive disorder with psychotic features Assessment & Plan: Home medications: * Risperidone 0.25mg PO HS * Mirtazapine 15mg PO HS Status: Chronic (7) Diarrhea Assessment & Plan: Infectious disease on consult, Dr. Quiroz--> help appreciated Leukocytosis is improving C diff is negative x2, fecal leukocytes negative, stool culture negative, stool occult negative Hepatitis and HIV negative F/U Ova and parasite CT abd/pelvis ordered, unable to be done today due to contrast from barium swallow, however, pt is still open for a CT abd/Pelvis Status: Acute (8) Prophylactic measure Assessment & Plan: GI: Pepcid 20mg PO BID DVT: SCDs, Lovenox 40mg SC daily Disposition: Patient will need home services upon discharge All plans and management discussed with Dr. Wu Status: Acute
[2018-04-20] MEDS: diltiaZEM 240 mg/24 Hours CD Cap PO SCH (10:31)
[2018-04-20] MEDS: Enoxaparin 30 mg Syringe SC SCH (10:31)
--- NOTE | 2018-04-20 11:26 | CARD ---
APPROVED REPORT Date of service: 04/16/2018 EKG Measurement Heart [id number] <Conclusion> Normal sinus rhythm ST & T wave abnormality, consider lateral ischemia Abnormal ECG
[2018-04-20] MEDS ORDERED: Acetaminophen 650mg/20.3ml solution UD PO STA (12:00)
--- NOTE | 2018-04-20 15:45 | CP.PCM.PN ---
Subjective - Date & Time of Evaluation Date of Evaluation: 04/20/18 Time of Evaluation: 08:00 - Subjective Subjective: admitted for AMS and found to have leukocytosis patient was cultured up and staarted on antibiotics improving all cultures neg thus far c/o LBM Objective - Vital Signs/Intake and Output Vital Signs (last 24 hours): Temp Pulse Resp BP Pulse Ox 98.5 F 74 20 167/71 H 98 04/20/18 07:40 04/20/18 08:47 04/20/18 07:40 04/20/18 07:40 04/20/18 08:00 Intake and Output: 04/20/18 04/20/18 06:59 18:59 Intake Total 2180 Balance 2180 - Medications Medications: Current Medications Acetaminophen (Tylenol 650 Mg Supp) 650 mg [place] Q6 PRN PRN Reason: Pain, moderate (4-7) Last Admin: 04/17/18 19:57 Dose: 650 mg Aspirin (Aspirin Chewable) 81 mg PO DAILY [facility] Last Admin: 04/20/18 10:32 Dose: 81 mg Carvedilol (Coreg) 3.125 mg PO BID [facility] Last Admin: 04/20/18 10:32 Dose: 3.125 mg Clopidogrel Bisulfate (Plavix) 75 mg PO DAILY [facility] Last Admin: 04/20/18 10:32 Dose: 75 mg Dextrose (Dextrose 50% Inj) 0 ml IV STAT PRN; Protocol PRN Reason: Hypoglycemia Protocol Dextrose (Glutose 15) 0 gm PO ONCE PRN; Protocol PRN Reason: Hypoglycemia Protocol Diltiazem HCl (Cardizem Cd) 240 mg PO DAILY [facility] Last Admin: 04/20/18 10:31 Dose: 240 mg Enoxaparin Sodium (Lovenox) 30 mg SC DAILY [facility] Last Admin: 04/20/18 10:31 Dose: 30 mg Famotidine (Pepcid) 20 mg PO BID [facility] Last Admin: 04/20/18 10:32 Dose: 20 mg Glucagon (Glucagen Diagnostic Kit) 0 mg IM STAT PRN; Protocol PRN Reason: Hypoglycemia Protocol Dextrose (Dextrose 5% In Water 1000 Ml) 1,000 mls @ 0 mls/hr IV .Q0M PRN; Protocol PRN Reason: Hypoglycemia Protocol Vancomycin/Sodium Chloride (Vancomycin 1 Gm/Ns 200 Ml) 1 gm in 200 mls @ 133.333 mls/hr IVPB Q24H [facility]; Protocol Last Admin: 04/19/18 18:36 Dose: 133.333 mls/hr Sodium Chloride (Sodium Chloride 0.9%) 1,000 mls @ 100 mls/hr IV .Q10H [facility] Last Admin: 04/20/18 04:09 Dose: 100 mls/hr Ceftriaxone Sodium 1 gm/ (Sodium Chloride) 100 mls @ 100 mls/hr IVPB DAILY [facility]; Protocol Insulin Aspart (Novolog) 0 unit SC ACHS [facility]; Protocol Last Admin: 04/20/18 12:24 Dose: 3 u Rosuvastatin Calcium (Crestor) 10 mg PO HS [facility] Last Admin: 04/19/18 22:08 Dose: Not Given Saccharomyces Boulardii (Florastor) 250 mg PO BID [facility] - Labs Labs: 04/20/18 06:54 04/20/18 06:54 PT 13.4 SECONDS (9.7-12.2) H 04/16/18 20:17 INR 1.2 04/16/18 20:17 APTT 32 SECONDS (21-34) 04/16/18 20:17 - Constitutional Appears: Non-toxic, Chronically Ill - Head Exam Head Exam: NORMOCEPHALIC - Eye Exam Eye Exam: PERRL - ENT Exam ENT Exam: Mucous Membranes Dry - Neck Exam Neck Exam: absent: Lymphadenopathy - Respiratory Exam Respiratory Exam: Decreased Breath Sounds - Cardiovascular Exam Cardiovascular Exam: REGULAR RHYTHM - GI/Abdominal Exam GI & Abdominal Exam: Distended - Rectal Exam Rectal Exam: Deferred - Exam Exam: NORMAL INSPECTION Assessment and Plan (1) Confusion and disorientation Status: Acute (2) Diarrhea Status: Acute (3) History of CVA (cerebrovascular accident) Status: Acute (4) History of coronary artery disease Status: Acute (5) Hypertension Status: Acute (6) Major depressive disorder Status: Acute (7) Diabetes mellitus Status: Chronic (8) History of CVA (cerebrovascular accident) Status: Chronic - Assessment and Plan (Free Text) Assessment: improving on antibiotics switch to rocephin vanco/ zosyn d/c 'd
[2018-04-20] MEDS: Saccharomyces Boulardi 250 mg Cap PO SCH (18:17)
[2018-04-20 23:01] LABS: SQUAMOUS EPITHIAL < 1 /hpf (0-5); URINE BACTERIA RARE (<OCC); URINE BILIRUBIN NEGATIVE (NEGATIVE); URINE CLARITY Clear (Clear); URINE COLOR Straw (YELLOW); URINE GLUCOSE (UA) 2+ mg/dL (Normal); URINE LEUKOCYTE ESTERASE TRACE Leu/uL (Negative); URINE PROTEIN NEGATIVE (NEGATIVE); URINE UROBILINOGEN NORMAL mg/dL (0.2-1.0)
[2018-04-20 23:09] LABS: URINE BLOOD TRACE (NEGATIVE)
[2018-04-21] MEDS: Acetaminophen 650mg/20.3ml solution UD PO PRN (01:16)
[2018-04-21] MEDS: Piperacillin/Tazobact 3.375 GM in Sodium Chloride 100 ML IVPB SCH ×4 (01:46→18:34)
[2018-04-21] MEDS: Vancomycin 1 GM in Sodium Chloride 0.9% 200 ML IVPB SCH (01:47)
[2018-04-21] MEDS: Sodium Chloride 0.9% 1,000 ML IV SCH ×3 (05:12→18:33)
[2018-04-21 06:46] LABS: BASO # 0.1 K/uL (0.0-0.2); BASO % 0.7 % (0.0-2.0); EOS # 0.5 K/uL (0.0-0.7); EOS % 6.2 % (0.0-4.0); HEMOGLOBIN 10.5 g/dL (11.0-16.0); LYMPH # 2.7 K/uL (1.0-4.3); LYMPH % 33.7 % (20.0-40.0); MEAN CELL VOLUME 85.1 fL (81.0-99.0); MEAN CORPUSCULAR HEMOGLOBIN 29.2 pg (27.0-31.0); MEAN CORPUSCULAR HGB CONC 34.3 g/dL (33.0-37.0); MEAN PLATELET VOLUME 8.2 fL (7.2-11.7); MONO % 12.5 % (0.0-10.0); NEUT # 3.8 K/uL (1.8-7.0); NEUT % 46.9 % (50.0-75.0); RBC 3.61 Mil/uL (3.80-5.20); RED CELL DISTRIBUTION WIDTH 12.8 % (11.5-14.5); WHITE BLOOD COUNT 8.1 K/uL (4.8-10.8)
[2018-04-21 06:57] LABS: ALB/GLOB RATIO 1.1 (1.0-2.1); ALBUMIN 3.3 g/dL (3.5-5.0); ALT/SGPT 52 U/L (9-52); AST/SGOT 33 U/L (14-36); BLOOD UREA NITROGEN 7 mg/dL (7-17); CALCIUM 8.7 mg/dl (8.6-10.4); GFR NON-AFRICAN AMERICAN > 60
--- NOTE | 2018-04-21 07:11 | RAD ---
Date of service: 04/21/2018 HISTORY: Fever. COMPARISON: 04/16/2018 FINDINGS: LUNGS: Mild venous congestion. Biapical pleural thickening. Scattered granulomatous changes in the upper lung price. PLEURA: No significant pleural effusion identified, no pneumothorax apparent. CARDIOVASCULAR: Aortic atherosclerotic calcification present Bilateral paratracheal prominence may represent prominent vasculature. Normal. OSSEOUS STRUCTURES: No significant abnormalities. VISUALIZED UPPER ABDOMEN: Surgical clips in the upper abdomen. OTHER FINDINGS: None. IMPRESSION: Mild venous congestion. Biapical pleural thickening. Scattered granulomatous changes in the upper lung price.
--- NOTE | 2018-04-21 07:20 | CP.PCM.PN ---
Subjective - Date & Time of Evaluation Date of Evaluation: 04/20/18 Time of Evaluation: 17:25 - Subjective Subjective: Patient was seen and examined. Denies chest pain and dyspnea Physical examination - Constitutional Appears: No Acute Distress - Head Exam Head Exam: ATRAUMATIC, NORMAL INSPECTION - Eye Exam Eye Exam: EOMI - ENT Exam ENT Exam: Mucous Membranes Moist - Respiratory Exam Respiratory Exam: Clear to Ausculation Bilateral, NORMAL BREATHING PATTERN. absent: Rhonchi, Wheezes - Cardiovascular Exam Cardiovascular Exam: REGULAR RHYTHM, +S1, +S2 - GI/Abdominal Exam GI & Abdominal Exam: Soft, Normal Bowel Sounds. absent: Distended, Firm, Guar ding, Rigid, Tenderness - Extremities Exam Extremities Exam: Normal Inspection. absent: Calf Tenderness, Full ROM, Pedal Edema - Neurological Exam Neurological Exam: Alert, Awake, Oriented x3 - Psychiatric Exam Psychiatric exam: Normal Affect, Normal Mood - Skin Skin Exam: Normal Color Assessment and Plan (1) Confusion and disorientation Assessment & Plan: Neurohospitalist and Neurology, Dr. Redmond on board * Management as per recommendation * EGG report pending R/O infection and CVA Febrile, Tmax: 100.6; Afebrile> 24 hours Leukocytosis - Resolved * Tylenol 325mg NH Q4H PRN for fever> 100.4 * UA is negative, Blood culture showing no growth x 48 hours, throat cultures negative * Prophylactic antibiotics; Vancomycin 1gm IV daily ( D/C 04/20/18) and Zosyn 3.375gm IV Q8H * Florastor 250mg PO BID * NS @ 100mls/hr Lipid Panel: - TGL: 159, Chol:122, LDL:61 and HDL:42 Chest X-ray: No focal infiltrate or effusion. Calcification at the aortic knob. Right paratracheal prominence likely represents prominent vasculature. Tortuous aorta. Mild cardiomegaly. Degenerative changes in the spine. HEAD CT: No acute intracranial abnormality. Chronic areas of encephalomalacia as described above. Chronic microvascular ischemic change. Prominent ventricles. If symptoms persists, consider correlation with MRI. Head MRI: Chronic infarcts identified in the right frontal lobe as well as left parietal occipital lobe with a small chronic infarct reiterated at the right occipital lobe. Occluded right ICA identified. No definite acute or subacute brain infarction identified at this time. Chronic lacune left thalamus. Two chronic lacunae at the right cerebellum superiorly. 2. Reiterated age related neuro degenerative findings. 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 Right MARS and MCA at least partially collateralized by flow through the anterior communicating artery. Changes in collateralization can be correlated by repeat CTA head and neck if clinically warranted. 2. High-grade stenosis proximal basilar artery suggested this can also be correlated with CTA head and neck. 3. High-grade stenosis questioned at the mid cavernous left ICA, not previously shown. Echocardiogram (11/27/17): LV normal size, Mild concentric left ventricular hypertrophy and systolic function mildly impaired. Refer to the EMR for complete Neck MRA: Reiteration of occluded right cervical through intracranial ICA. Collateralization of right MARS is appreciated once again and mildly into the right MCA with comparison by follow-up CT angiogram available if clinically warranted. The left ICA remains patent with a mild stenosis questioned at the proximal left ICA. 2. Question of interval occlusion proximal to mid left vertebral artery with mild flow identified at the distal cervical segment. Follow-up CT angiogram of the head and neck is advised for better characterization. Patent right vertebral artery. F/u repeat echo Status: Acute (2) History of coronary artery disease Assessment & Plan: 2 stent placement; 2010 Plavix 75mg PO daily; Carvedilol 3.125mg PO BID; ASA 81mg PO daily Status: Acute No further cardiac plan at this time (3) History of CVA (cerebrovascular accident) Assessment & Plan: Lipid Panel: - TGL: 159, Chol:122, LDL:61 and HDL:42 Plavix 75mg PO daily; Crestor 10mg PO HS; ASA 81mg PO daily Status: Acute (4) Diabetes mellitus Assessment & Plan: HgbA1C: 7.8 Accuchecks ACHS ISS-Low dose Hypoglycemia protocol Status: Chronic (5) Hypertension Assessment & Plan: Home medication: * Cardizem CD 240mg PO QD, * Coreg 3.125mg PO BID Status: Acute (6) Major depressive disorder with psychotic features Assessment & Plan: Home medications: * Risperidone 0.25mg PO HS * Mirtazapine 15mg PO HS Status: Chronic (7) Diarrhea Assessment & Plan: Infectious disease on consult, Dr. Quiroz--> help appreciated Leukocytosis is improving C diff is negative x2, fecal leukocytes negative, stool culture negative, stool occult negative Hepatitis and HIV negative F/U Ova and parasite CT abd/pelvis ordered, unable to be done today due to contrast from barium swallow, however, pt is still open for a CT abd/Pelvis Status: Acute (8) Prophylactic measure Assessment & Plan: GI: Pepcid 20mg PO BID DVT: SCDs, Lovenox 40mg SC daily Objective - Vital Signs/Intake and Output Vital Signs (last 24 hours): Temp Pulse Resp BP Pulse Ox 98.5 F 62 20 127/49 L 98 04/21/18 04:30 04/21/18 04:30 04/21/18 04:30 04/21/18 04:30 04/20/18 23:00 Intake and Output: 04/21/18 04/21/18 06:59 18:59 Intake Total 950 Balance 950 - Medications Medications: Current Medications Acetaminophen (Tylenol 650 Mg Supp) 650 mg [place] Q6 PRN PRN Reason: Pain, moderate (4-7) Last Admin: 04/17/18 19:57 Dose: 650 mg Acetaminophen (Tylenol 650mg/20.3ml Solution Ud) 650 mg PO Q6 PRN PRN Reason: Temperature Last Admin: 04/21/18 01:16 Dose: 650 mg Aspirin (Aspirin Chewable) 81 mg PO DAILY [facility] Last Admin: 04/20/18 10:32 Dose: 81 mg Carvedilol (Coreg) 3.125 mg PO BID [facility] Last Admin: 04/20/18 18:18 Dose: 3.125 mg Clopidogrel Bisulfate (Plavix) 75 mg PO DAILY [facility] Last Admin: 04/20/18 10:32 Dose: 75 mg Dextrose (Dextrose 50% Inj) 0 ml IV STAT PRN; Protocol PRN Reason: Hypoglycemia Protocol Dextrose (Glutose 15) 0 gm PO ONCE PRN; Protocol PRN Reason: Hypoglycemia Protocol Diltiazem HCl (Cardizem Cd) 240 mg PO DAILY [facility] Last Admin: 04/20/18 10:31 Dose: 240 mg Enoxaparin Sodium (Lovenox) 30 mg SC DAILY [facility] Last Admin: 04/20/18 10:31 Dose: 30 mg Famotidine (Pepcid) 20 mg PO BID [facility] Last Admin: 04/20/18 18:15 Dose: 20 mg Glucagon (Glucagen Diagnostic Kit) 0 mg IM STAT PRN; Protocol PRN Reason: Hypoglycemia Protocol Dextrose (Dextrose 5% In Water 1000 Ml) 1,000 mls @ 0 mls/hr IV .Q0M PRN; Protocol PRN Reason: Hypoglycemia Protocol Sodium Chloride (Sodium Chloride 0.9%) 1,000 mls @ 100 mls/hr IV .Q10H [facility] Last Admin: 04/21/18 05:12 Dose: 100 mls/hr Ceftriaxone Sodium 1 gm/ (Sodium Chloride) 100 mls @ 100 mls/hr IVPB DAILY [facility]; Protocol Last Admin: 04/20/18 18:14 Dose: 100 mls/hr Vancomycin HCl 1 gm/ Sodium (Chloride) 200 mls @ 133.333 mls/hr IVPB Q24H [facility]; Protocol Last Admin: 04/21/18 01:47 Dose: 133.333 mls/hr Piperacillin Sod/Tazobactam (Sod 3.375 gm/ Sodium Chloride) 100 mls @ 200 mls/hr IVPB Q8H [facility]; Protocol Last Admin: 04/21/18 01:46 Dose: 200 mls/hr Insulin Aspart (Novolog) 0 unit SC ACHS [facility]; Protocol Last Admin: 04/20/18 22:00 Dose: Not Given Rosuvastatin Calcium (Crestor) 10 mg PO HS [facility] Last Admin: 04/20/18 22:28 Dose: 10 mg Saccharomyces Boulardii (Florastor) 250 mg PO BID [facility] Last Admin: 04/20/18 18:17 Dose: 250 mg - Labs Labs: 04/21/18 06:35 04/21/18 06:35 PT 13.4 SECONDS (9.7-12.2) H 04/16/18 20:17 INR 1.2 04/16/18 20:17 APTT 32 SECONDS (21-34) 04/16/18 20:17
[2018-04-21] MEDS: (Novolog) Insulin Aspart, Recombinant 100 u/ml 10 ml vial SC SCH ×4 (08:00→22:13)
[2018-04-21] MEDS: Saccharomyces Boulardi 250 mg Cap PO SCH ×2 (10:38→18:35)
[2018-04-21] MEDS: Enoxaparin 30 mg Syringe SC SCH (10:38)
[2018-04-21] MEDS: diltiaZEM 240 mg/24 Hours CD Cap PO SCH (10:38)
[2018-04-22] MEDS: Vancomycin 1 GM in Sodium Chloride 0.9% 200 ML IVPB SCH (00:37)
[2018-04-22 01:57] LABS: SQUAMOUS EPITHIAL < 1 /hpf (0-5); URINE BACTERIA RARE (<OCC); URINE BILIRUBIN NEGATIVE (NEGATIVE); URINE BLOOD 2+ (NEGATIVE); URINE CLARITY Hazy (Clear); URINE COLOR Yellow (YELLOW); URINE GLUCOSE (UA) NORMAL (Normal); URINE HYALINE CAST 0-2 /lpf (0-2); URINE LEUKOCYTE ESTERASE 1+ Leu/uL (Negative); URINE PROTEIN NEGATIVE (NEGATIVE); URINE UROBILINOGEN NORMAL mg/dL (0.2-1.0)
[2018-04-22] MEDS: Piperacillin/Tazobact 3.375 GM in Sodium Chloride 100 ML IVPB SCH ×2 (02:42→10:33)
[2018-04-22] MEDS: (Novolog) Insulin Aspart, Recombinant 100 u/ml 10 ml vial SC SCH ×3 (08:00→17:11)
[2018-04-22] MEDS: diltiaZEM 240 mg/24 Hours CD Cap PO SCH (10:42)
[2018-04-22] MEDS: Enoxaparin 30 mg Syringe SC SCH (10:43)
[2018-04-22] MEDS: Saccharomyces Boulardi 250 mg Cap PO SCH ×2 (10:43→17:11)
[2018-04-22] MEDS: Acetaminophen 650mg/20.3ml solution UD PO PRN (12:34)
--- NOTE | 2018-04-22 15:11 | CP.PCM.PN ---
Subjective - Date & Time of Evaluation Date of Evaluation: 04/22/18 Time of Evaluation: 08:00 - Subjective Subjective: spiked again over weekend- recultured and vanco added back may need JAXON all cultures blood negative thus far awake alert NAD Objective - Vital Signs/Intake and Output Vital Signs (last 24 hours): Temp Pulse Resp BP Pulse Ox 98.2 F 80 20 179/60 H 94 L 04/22/18 09:09 04/22/18 09:09 04/22/18 09:09 04/22/18 09:09 04/22/18 09:09 Intake and Output: 04/22/18 04/22/18 06:59 18:59 Intake Total 1600 Output Total 250 Balance 1350 - Medications Medications: Current Medications Acetaminophen (Tylenol 650 Mg Supp) 650 mg HI Q6 PRN PRN Reason: Pain, moderate (4-7) Last Admin: 04/17/18 19:57 Dose: 650 mg Acetaminophen (Tylenol 650mg/20.3ml Solution Ud) 650 mg PO Q6 PRN PRN Reason: Temperature Last Admin: 04/22/18 12:34 Dose: 650 mg Aspirin (Aspirin Chewable) 81 mg PO DAILY [facility] Last Admin: 04/22/18 10:42 Dose: 81 mg Carvedilol (Coreg) 3.125 mg PO BID [facility] Last Admin: 04/22/18 10:42 Dose: 3.125 mg Clopidogrel Bisulfate (Plavix) 75 mg PO DAILY [facility] Last Admin: 04/22/18 10:41 Dose: 75 mg Dextrose (Dextrose 50% Inj) 0 ml IV STAT PRN; Protocol PRN Reason: Hypoglycemia Protocol Dextrose (Glutose 15) 0 gm PO ONCE PRN; Protocol PRN Reason: Hypoglycemia Protocol Diltiazem HCl (Cardizem Cd) 240 mg PO DAILY [facility] Last Admin: 04/22/18 10:42 Dose: 240 mg Enoxaparin Sodium (Lovenox) 30 mg SC DAILY [facility] Last Admin: 04/22/18 10:43 Dose: 30 mg Famotidine (Pepcid) 20 mg PO BID [facility] Last Admin: 04/22/18 10:42 Dose: 20 mg Glucagon (Glucagen Diagnostic Kit) 0 mg IM STAT PRN; Protocol PRN Reason: Hypoglycemia Protocol Ceftriaxone Sodium 1 gm/ (Sodium Chloride) 100 mls @ 100 mls/hr IVPB DAILY [facility]; Protocol Last Admin: 04/22/18 10:35 Dose: 100 mls/hr Vancomycin HCl 1 gm/ Sodium (Chloride) 200 mls @ 133.333 mls/hr IVPB Q24H [facility]; Protocol Last Admin: 04/22/18 00:37 Dose: 133.333 mls/hr Piperacillin Sod/Tazobactam (Sod 3.375 gm/ Sodium Chloride) 100 mls @ 200 mls/hr IVPB Q8H [facility]; Protocol Last Admin: 04/22/18 10:33 Dose: 200 mls/hr Insulin Aspart (Novolog) 0 unit SC ACHS [facility]; Protocol Last Admin: 04/22/18 12:02 Dose: Not Given Rosuvastatin Calcium (Crestor) 10 mg PO HS [facility] Last Admin: 04/21/18 22:13 Dose: 10 mg Saccharomyces Boulardii (Florastor) 250 mg PO BID [facility] Last Admin: 04/22/18 10:43 Dose: 250 mg - Labs Labs: 04/21/18 06:35 04/21/18 06:35 PT 13.4 SECONDS (9.7-12.2) H 04/16/18 20:17 INR 1.2 04/16/18 20:17 APTT 32 SECONDS (21-34) 04/16/18 20:17 - Constitutional Appears: Confused, Chronically Ill - Head Exam Head Exam: NORMOCEPHALIC - Eye Exam Eye Exam: PERRL - ENT Exam ENT Exam: Mucous Membranes Dry - Neck Exam Neck Exam: absent: Lymphadenopathy - Respiratory Exam Respiratory Exam: Decreased Breath Sounds - Cardiovascular Exam Cardiovascular Exam: Clicks - GI/Abdominal Exam GI & Abdominal Exam: Distended, Soft - Rectal Exam Rectal Exam: Deferred - Exam Exam: NORMAL INSPECTION - Extremities Exam Extremities Exam: absent: Pedal Edema - Back Exam Back Exam: absent: CVA tenderness (L), CVA tenderness (R) - Neurological Exam Neurological Exam: Alert, Altered, Awake - Psychiatric Exam Psychiatric exam: Depressed - Skin Skin Exam: Dry Assessment and Plan (1) Confusion and disorientation Status: Acute (2) Diarrhea Status: Acute (3) History of CVA (cerebrovascular accident) Status: Acute (4) History of coronary artery disease Status: Acute (5) Hypertension Status: Acute (6) Major depressive disorder Status: Acute (7) Diabetes mellitus Status: Chronic (8) History of CVA (cerebrovascular accident) Status: Chronic - Assessment and Plan (Free Text) Assessment: Chest X-ray: No focal infiltrate or effusion. Calcification at the aortic knob. Right paratracheal prominence likely represents prominent vasculature. Tortuous aorta. Mild cardiomegaly. Degenerative changes in the spine. HEAD CT: No acute intracranial abnormality. Chronic areas of encephalomalacia as described above. Chronic microvascular ischemic change. Prominent ventricles. If symptoms persists, consider correlation with MRI. Head MRI: Chronic infarcts identified in the right frontal lobe as well as left parietal occipital lobe with a small chronic infarct reiterated at the right occipital lobe. Occluded right ICA identified. No definite acute or subacute brain infarction identified at this time. Chronic lacune left thalamus. Two chronic lacunae at the right cerebellum superiorly. 2. Reiterated age related neuro degenerative findings. 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 Right MARS and MCA at least partially collateralized by flow through the anterior communicating artery. Changes in collateralization can be correlated by repeat CTA head and neck if clinically warranted. 2. High-grade stenosis proximal basilar artery suggested this can also be correlated with CTA head and neck. 3. High-grade stenosis questioned at the mid cavernous left ICA, not previously shown. Echocardiogram (11/27/17): LV normal size, Mild concentric left ventricular hypertrophy and systolic function mildly impaired. Refer to the EMR for complete Neck MRA: Reiteration of occluded right cervical through intracranial ICA. Collateralization of right MARS is appreciated once again and mildly into the right MCA with comparison by follow-up CT angiogram available if clinically warranted. The left ICA remains patent with a mild stenosis questioned at the proximal left ICA. 2. Question of interval occlusion proximal to mid left vertebral artery with mild flow identified at the distal cervical segment. Follow-up CT angiogram of the head and neck is advised for better characterization. Patent right vertebral artery. recurrent fevers improving on Vanco no positive blood cultures consider JAXON
[2018-04-22] MEDS: Sodium Chloride 0.9% 1,000 ML IV SCH (17:00)
[2018-04-23] MEDS: Acetaminophen 650mg/20.3ml solution UD PO PRN (00:06)
[2018-04-23] MEDS: Vancomycin 1 GM in Sodium Chloride 0.9% 200 ML IVPB SCH (01:03)
[2018-04-23] MEDS: Sodium Chloride 0.9% 1,000 ML IV SCH (05:14)
[2018-04-23 06:32] LABS: ALB/GLOB RATIO 1.1 (1.0-2.1); ALBUMIN 3.5 g/dL (3.5-5.0); ALT/SGPT 43 U/L (9-52); AST/SGOT 21 U/L (14-36); BLOOD UREA NITROGEN 6 mg/dL (7-17); CALCIUM 9.2 mg/dl (8.6-10.4); GFR NON-AFRICAN AMERICAN > 60
[2018-04-23 06:37] LABS: BASO # 0.1 K/uL (0.0-0.2); BASO % 0.8 % (0.0-2.0); EOS # 0.6 K/uL (0.0-0.7); EOS % 6.6 % (0.0-4.0); HEMOGLOBIN 10.8 g/dL (11.0-16.0); LYMPH # 2.7 K/uL (1.0-4.3); MEAN CELL VOLUME 83.9 fL (81.0-99.0); MEAN CORPUSCULAR HEMOGLOBIN 29.5 pg (27.0-31.0); MEAN CORPUSCULAR HGB CONC 35.1 g/dL (33.0-37.0); MEAN PLATELET VOLUME 7.9 fL (7.2-11.7); MONO % 10.5 % (0.0-10.0); NEUT # 4.9 K/uL (1.8-7.0); NEUT % 53.1 % (50.0-75.0); RBC 3.66 Mil/uL (3.80-5.20); WHITE BLOOD COUNT 9.3 K/uL (4.8-10.8)
[2018-04-23] MEDS: (Novolog) Insulin Aspart, Recombinant 100 u/ml 10 ml vial SC SCH ×2 (07:25→12:43)
[2018-04-23 07:52] VITALS: PULSE 56
[2018-04-23 08:48] VITALS: BP 161/71; TEMP 98.7; O2SAT 94
[2018-04-23] MEDS: diltiaZEM 240 mg/24 Hours CD Cap PO SCH (10:56)
[2018-04-23] MEDS: Enoxaparin 30 mg Syringe SC SCH (10:56)
[2018-04-23] MEDS: Saccharomyces Boulardi 250 mg Cap PO SCH (10:56)
--- NOTE | 2018-04-23 11:33 | CP.PCM.PN ---
Subjective - Date & Time of Evaluation Date of Evaluation: 04/23/18 Time of Evaluation: 11:30 - Subjective Subjective: PROGRESS NOTE. DR. EDWARDS Pt seen and examined at bedside. No acute distress. No fevers, chills, vomiting, diarrhea. Plan for DC today. Objective - Vital Signs/Intake and Output Vital Signs (last 24 hours): Temp Pulse Resp BP Pulse Ox 98.7 F 56 L 20 161/71 H 94 L 04/23/18 07:00 04/23/18 07:06 04/23/18 07:00 04/23/18 07:00 04/23/18 07:00 Intake and Output: 04/23/18 04/23/18 06:59 18:59 Intake Total 800 Output Total 400 Balance 400 - Medications Medications: Current Medications Acetaminophen (Tylenol 650 Mg Supp) 650 mg [place] Q6 PRN PRN Reason: Pain, moderate (4-7) Last Admin: 04/17/18 19:57 Dose: 650 mg Acetaminophen (Tylenol 650mg/20.3ml Solution Ud) 650 mg PO Q6 PRN PRN Reason: Temperature Last Admin: 04/23/18 00:06 Dose: 650 mg Aspirin (Aspirin Chewable) 81 mg PO DAILY [facility] Last Admin: 04/23/18 10:56 Dose: 81 mg Carvedilol (Coreg) 3.125 mg PO BID [facility] Last Admin: 04/23/18 10:57 Dose: 3.125 mg Clopidogrel Bisulfate (Plavix) 75 mg PO DAILY [facility] Last Admin: 04/23/18 10:56 Dose: 75 mg Dextrose (Dextrose 50% Inj) 0 ml IV STAT PRN; Protocol PRN Reason: Hypoglycemia Protocol Dextrose (Glutose 15) 0 gm PO ONCE PRN; Protocol PRN Reason: Hypoglycemia Protocol Diltiazem HCl (Cardizem Cd) 240 mg PO DAILY [facility] Last Admin: 04/23/18 10:56 Dose: 240 mg Enoxaparin Sodium (Lovenox) 30 mg SC DAILY [facility] Last Admin: 04/23/18 10:56 Dose: 30 mg Famotidine (Pepcid) 20 mg PO BID [facility] Last Admin: 04/23/18 10:56 Dose: 20 mg Glucagon (Glucagen Diagnostic Kit) 0 mg IM STAT PRN; Protocol PRN Reason: Hypoglycemia Protocol Ceftriaxone Sodium 1 gm/ (Sodium Chloride) 100 mls @ 100 mls/hr IVPB DAILY [facility]; Protocol Last Admin: 04/23/18 10:56 Dose: 100 mls/hr Vancomycin HCl 1 gm/ Sodium (Chloride) 200 mls @ 133.333 mls/hr IVPB Q24H [facility]; Protocol Last Admin: 04/23/18 01:03 Dose: 133.333 mls/hr Sodium Chloride (Sodium Chloride 0.9%) 1,000 mls @ 100 mls/hr IV .Q10H [facility] Last Admin: 04/23/18 05:14 Dose: 100 mls/hr Insulin Aspart (Novolog) 0 unit SC ACHS [facility]; Protocol Last Admin: 04/23/18 07:25 Dose: Not Given Rosuvastatin Calcium (Crestor) 10 mg PO HS [facility] Last Admin: 04/22/18 21:28 Dose: 10 mg Saccharomyces Boulardii (Florastor) 250 mg PO BID [facility] Last Admin: 04/23/18 10:56 Dose: 250 mg - Labs Labs: 04/23/18 06:07 04/23/18 06:07 PT 13.4 SECONDS (9.7-12.2) H 04/16/18 20:17 INR 1.2 04/16/18 20:17 APTT 32 SECONDS (21-34) 04/16/18 20:17 - Constitutional Appears: Non-toxic, No Acute Distress, Chronically Ill - Head Exam Head Exam: ATRAUMATIC, NORMAL INSPECTION, NORMOCEPHALIC - Eye Exam Eye Exam: EOMI - ENT Exam ENT Exam: Mucous Membranes Moist - Neck Exam Neck Exam: Full ROM, Normal Inspection - Respiratory Exam Respiratory Exam: absent: Respiratory Distress - Cardiovascular Exam Cardiovascular Exam: +S1, +S2 - GI/Abdominal Exam GI & Abdominal Exam: Soft, Normal Bowel Sounds. absent: Tenderness - Extremities Exam Extremities Exam: Full ROM, Normal Inspection - Neurological Exam Neurological Exam: Alert, Awake - Psychiatric Exam Psychiatric exam: Normal Affect, Normal Mood - Skin Skin Exam: Dry, Intact, Normal Color, Warm Assessment and Plan - Assessment and Plan (Free Text) Assessment: This is a 77 yo female with 1. Altered mental status -neurology consult. Dr. Lenard Redmond. recs appreciated. -NS 100 cc/hr -tylenol PRN -asa 81 mg po daily -plavix 75 mg po daily -crestor 10 mg po hs -abnormal eeg- bihemispheric cerebral dx 2. hx of CAD, s/p 2 stents -asa 81 mg po daily -plavix 75 mg po daily -coreg 3.125 mg po bid -cardiology consult. Dr. Coley. recloan appreciated. 3. hx of a fib -coreg 3.125 bid -cardizem 240 mg po daily 4. hx of DM -ISS 5. hx of HTN -continue coreg -continue cardizem 6. hx of depression -continue to monitor 7. hx of diarrhea -bm more solid this morning 8. Positive urine culture -positive for yeast -will dc on diflucan 8. GI/DVT ppx -lovenox 30 mg sc daily -famotidine 20 mg po bid discussed with Dr. Edwards.
--- NOTE | 2018-04-23 11:46 | CP.PCM.PN ---
Subjective - Date & Time of Evaluation Date of Evaluation: 04/23/18 Time of Evaluation: 09:00 - Subjective Subjective: afeb on Vanco cultures neg consider JAXON Objective - Vital Signs/Intake and Output Vital Signs (last 24 hours): Temp Pulse Resp BP Pulse Ox 98.7 F 56 L 20 161/71 H 94 L 04/23/18 07:00 04/23/18 07:06 04/23/18 07:00 04/23/18 07:00 04/23/18 07:00 Intake and Output: 04/23/18 04/23/18 06:59 18:59 Intake Total 800 Output Total 400 Balance 400 - Medications Medications: Current Medications Acetaminophen (Tylenol 650 Mg Supp) 650 mg [place] Q6 PRN PRN Reason: Pain, moderate (4-7) Last Admin: 04/17/18 19:57 Dose: 650 mg Acetaminophen (Tylenol 650mg/20.3ml Solution Ud) 650 mg PO Q6 PRN PRN Reason: Temperature Last Admin: 04/23/18 00:06 Dose: 650 mg Aspirin (Aspirin Chewable) 81 mg PO DAILY [facility] Last Admin: 04/23/18 10:56 Dose: 81 mg Carvedilol (Coreg) 3.125 mg PO BID [facility] Last Admin: 04/23/18 10:57 Dose: 3.125 mg Clopidogrel Bisulfate (Plavix) 75 mg PO DAILY [facility] Last Admin: 04/23/18 10:56 Dose: 75 mg Dextrose (Dextrose 50% Inj) 0 ml IV STAT PRN; Protocol PRN Reason: Hypoglycemia Protocol Dextrose (Glutose 15) 0 gm PO ONCE PRN; Protocol PRN Reason: Hypoglycemia Protocol Diltiazem HCl (Cardizem Cd) 240 mg PO DAILY [facility] Last Admin: 04/23/18 10:56 Dose: 240 mg Enoxaparin Sodium (Lovenox) 30 mg SC DAILY [facility] Last Admin: 04/23/18 10:56 Dose: 30 mg Famotidine (Pepcid) 20 mg PO BID [facility] Last Admin: 04/23/18 10:56 Dose: 20 mg Glucagon (Glucagen Diagnostic Kit) 0 mg IM STAT PRN; Protocol PRN Reason: Hypoglycemia Protocol Ceftriaxone Sodium 1 gm/ (Sodium Chloride) 100 mls @ 100 mls/hr IVPB DAILY [facility]; Protocol Last Admin: 04/23/18 10:56 Dose: 100 mls/hr Vancomycin HCl 1 gm/ Sodium (Chloride) 200 mls @ 133.333 mls/hr IVPB Q24H [facility]; Protocol Last Admin: 04/23/18 01:03 Dose: 133.333 mls/hr Sodium Chloride (Sodium Chloride 0.9%) 1,000 mls @ 100 mls/hr IV .Q10H [facility] Last Admin: 04/23/18 05:14 Dose: 100 mls/hr Insulin Aspart (Novolog) 0 unit SC ACHS [facility]; Protocol Last Admin: 04/23/18 07:25 Dose: Not Given Rosuvastatin Calcium (Crestor) 10 mg PO HS [facility] Last Admin: 04/22/18 21:28 Dose: 10 mg Saccharomyces Boulardii (Florastor) 250 mg PO BID [facility] Last Admin: 04/23/18 10:56 Dose: 250 mg - Labs Labs: 04/23/18 06:07 04/23/18 06:07 PT 13.4 SECONDS (9.7-12.2) H 04/16/18 20:17 INR 1.2 04/16/18 20:17 APTT 32 SECONDS (21-34) 04/16/18 20:17 Assessment and Plan (1) Confusion and disorientation Status: Acute (2) Diarrhea Status: Acute (3) History of CVA (cerebrovascular accident) Status: Acute (4) History of coronary artery disease Status: Acute (5) Hypertension Status: Acute (6) Major depressive disorder Status: Acute (7) Diabetes mellitus Status: Chronic (8) History of CVA (cerebrovascular accident) Status: Chronic
--- NOTE | 2018-04-24 18:53 | CARD ---
APPROVED REPORT Date of service: 04/23/2018 EXAM: Two-dimensional and M-mode echocardiogram with Doppler and color Doppler. Other Information Quality : GoodRhythm : INDICATION CVA/TIA Cardiac Disease: CAD Infection:Rule out subacute bacterial endocarditis Chest Pain 2D DIMENSIONS IVSd1.4 (0.7-1.1cm)LVDd3.4 (3.9-5.9cm) PWd1.1 (0.7-1.1cm)LA [id number] (18-58mL) LVDs1.9 (2.5-4.0cm)FS (%) 45.5 % LVEF (%)77.9 (>50%)LVEF (Schreiber's)74.69 % IVC0.00 cm M-Mode DIMENSIONS RVDd0.86 (2.1-3.2cm)Left Atrium (MM)2.52 (2.5-4.0cm) IVSd1.46 (0.7-1.1cm)Aortic Root2.88 (2.2-3.7cm) LVDd3.72 (4.0-5.6cm)Aortic Cusp Exc.1.61 (1.5-2.0cm) PWd1.22 (0.7-1.1cm)FS (%) 48 % LVDs1.93 (2.0-3.8cm)LVEF (%)80 (>50%) Aortic Valve AI P 1/2 [id number] Mitral Valve MV E Xlthhscx20.2cm/sMV A Tyrcuidx481.5cm/sE/A ratio0.7 TDI Lateral E' Peak V3.71cm/sMedial E' Peak V3.06cm/sE/Lateral E'26.5 E/Medial E'32.1 Tricuspid Valve TR Peak [id number]/sTR Peak Gr.[id number] LEFT VENTRICLE The left ventricle is normal size. There is mild concentric left ventricular hypertrophy. The Ejection Fraction is >70%. There is normal LV segmental wall motion. Transmitral Doppler flow pattern is Grade I-abnormal relaxation pattern. RIGHT VENTRICLE The right ventricle is normal size. The right ventricular systolic function is normal. ATRIA The left atrium size is normal. The right atrium size is normal. The interatrial septum is intact with no evidence for an atrial septal defect. AORTIC VALVE The aortic valve is trileaflet. The aortic valve is moderately calcified. There is mild aortic regurgitation. MITRAL VALVE Mitral annular calcification is mild. There is no mitral valve regurgitation noted. TRICUSPID VALVE The tricuspid valve is normal in structure. There is mild to moderate tricuspid regurgitation. Right ventricular systolic pressure is estimated at 33 mmHg. There is no pulmonary hypertension. PULMONIC VALVE The pulmonary valve is normal in structure. There is mild pulmonic valvular regurgitation. GREAT VESSELS The aortic root is normal in size. The IVC is normal in size and collapses >50% with inspiration. PERICARDIAL EFFUSION There is no pericardial effusion. <Conclusion> The left ventricle is normal size. There is mild concentric left ventricular hypertrophy. The Ejection Fraction is >70%. Transmitral Doppler flow pattern is Grade I-abnormal relaxation pattern. There is mild aortic regurgitation. There is mild to moderate tricuspid regurgitation. Right ventricular systolic pressure is estimated at 33 mmHg. There is no pulmonary hypertension. The aortic root is normal in size. There is no pericardial effusion.
--- NOTE | 2018-04-29 08:31 | DS ---
HISTORY OF PRESENT ILLNESS: The patient was admitted to the hospital with chief complaint of elevated blood sugar and slightly altered mental status. The patient was placed on bedrest, IV fluid, insulin, diabetic education discussed with the family, uncontrolled diabetes and dementia. Emely Wu MD
== END 2018-04-23 15:23 | disposition home or self-care (01) | DRG 92 ==
LOC: C.ER 20:09 → SUPCPDRO 20:09 → C.9E 22:57 → UNDOADMOB 22:57 → C.9E 23:14 → C.6T 04-17 12:24 → OBSVTOIN 04-20 14:08 → C.ER 04-20 20:09 → C.9E 04-20 23:14
PROVIDERS: ADMIT Internal Medicine Pulmonary Disease; ATTEND Internal Medicine Pulmonary Disease
DX: G92 Toxic encephalopathy (principal); I69.354 Hemiplegia and hemiparesis following cerebral infarction affecting left non-dominant side; I69.319 Unspecified symptoms and signs involving cognitive functions following cerebral infarction; F01.50 Vascular dementia, unspecified severity, without behavioral disturbance, psychotic disturbance, mood disturbance, and anxiety; E78.00 Pure hypercholesterolemia, unspecified; E11.65 Type 2 diabetes mellitus with hyperglycemia

== ENCOUNTER 2018-04-24 16:20 | Observation (INO) | payer MEDICARE, MEDICAID ==
[2018-04-24] MEDS ORDERED: Sodium Chloride 0.9% 1,000 ML IV STA (17:02)
--- NOTE | 2018-04-24 17:13 | C.PDOC ---
History Of Present Illness 77 y/o female with PMHx of DM, HTN, CVA, with residual left-sided weakness, presents to the ED with hyperglycemia. Patient was just discharged home yesterday from admission for TIA (facial droop and disoriented). She then went to follow up today with Dr. Lang, and was found to have finger stick of 500. Ambulance called to bring patient directly to ED. Family also reports patient is wanting to lie down frequently and seems slow to respond. Of note, patient was also discharged with antibiotics, which she has not started yet. Time Seen by Provider: 04/24/18 16:41 Chief Complaint (Nursing): High Blood Sugar History Per: Patient History/Exam Limitations: no limitations Onset/Duration Of Symptoms: Hrs Current Symptoms Are (Timing): Still Present Treatment Prior To Provider Evaluation: Accucheck Additional History Per: EMS, Family, Prior Records Past Medical History Reviewed: Historical Data, Nursing Documentation, Vital Signs Vital Signs: Last Vital Signs Temp 98.6 F 04/24/18 16:28 Pulse 64 04/24/18 16:28 Resp 16 04/24/18 16:28 BP 164/45 H 04/24/18 16:28 Pulse Ox 95 04/24/18 16:28 - Medical History PMH: Alzheimer's Disease, Atrial Fibrillation, CAD, CVA, Depression, Diabetes, HTN, Hypercholesterolemia, TIA (Apr 2018) Surgical History: CABG, Coronary Stent - [facility] Procedures GROUP PSYCHOTHERAPY (12/12/17) INDIVIDUAL PSYCHOTHERAPY, BEHAVIORAL (12/12/17) Family History: States: Unknown Family Hx - Social History Hx Tobacco Use: No Hx Alcohol Use: Yes Hx Substance Use: No - Immunization History Hx Tetanus Toxoid Vaccination: No Hx Influenza Vaccination: Yes Hx Pneumococcal Vaccination: Yes Review Of Systems Constitutional: Positive for: Other (Hyperglycemia). Negative for: Fever Respiratory: Negative for: Shortness of Breath Gastrointestinal: Negative for: Vomiting, Diarrhea Neurological: Positive for: Weakness (left-sided weakness, residual since CVA) Physical Exam - Physical Exam Additional Physical Exam Comments: Constitutional: No acute distress. Head: Normocephalic. Atraumatic. Eyes: PERRL. ENT: Moist mucous membranes. Neck: Supple. Cardiovascular: Regular rate. Radial pulse 2+ bilaterally. Chest: No tenderness. Respiratory: Clear to auscultation bilaterally. GI: Soft. Nontender. Nondistended. Back: No CVA tenderness. Musculoskeletal: No tenderness or swelling of extremities. Skin: No rash. Neurologic: Oriented x2 (time). Left-sided weakness (baseline). ED Course And Treatment - Laboratory Results Result Diagrams: 04/24/18 17:21 04/24/18 17:21 O2 Sat by Pulse Oximetry: 95 (RA) Pulse Ox Interpretation: Normal Medical Decision Making Medical Decision Making: Plan: --Blood work --UA --CXR --EKG --IV fluids administered Patient with undifferentiated hyperglycemia with general weakness. Dr. Wu accepts patient to his service. Insulin administered. Disposition Discussed With : Emely Wu Doctor Will See Patient In The: Hospital - Disposition Disposition: HOSPITALIZED Disposition Time: 18:47 Condition: FAIR - Clinical Impression Clinical Impression: Hyperglycemia - Scribe Statement The provider has reviewed the documentation as recorded by the Scribe (Catarina Becerra) Provider Attestation: All medical record entries made by the Scribe were at my direction and personally dictated by me. I have reviewed the chart and agree that the record accurately reflects my personal performance of the history, physical exam, medical decision making, and the department course for this patient. I have also personally directed, reviewed, and agree with the discharge instructions and disposition.
[2018-04-24 17:28] LABS: BASO # 0.1 K/uL (0.0-0.2); BASO % 1.2 % (0.0-2.0); EOS # 0.3 K/uL (0.0-0.7); EOS % 3.2 % (0.0-4.0); HEMOGLOBIN 11.5 g/dL (11.0-16.0); LYMPH # 2.5 K/uL (1.0-4.3); LYMPH % 27.7 % (20.0-40.0); MEAN CELL VOLUME 84.5 fL (81.0-99.0); MEAN CORPUSCULAR HEMOGLOBIN 28.7 pg (27.0-31.0); MEAN CORPUSCULAR HGB CONC 33.9 g/dL (33.0-37.0); MEAN PLATELET VOLUME 7.8 fL (7.2-11.7); MONO # 0.7 K/uL (0.0-0.8); MONO % 7.8 % (0.0-10.0); NEUT # 5.5 K/uL (1.8-7.0); NEUT % 60.1 % (50.0-75.0); NRBC % 0.1 % (0.0-2.0); RED CELL DISTRIBUTION WIDTH 13.2 % (11.5-14.5); WHITE BLOOD COUNT 9.1 K/uL (4.8-10.8)
--- NOTE | 2018-04-24 17:35 | RAD ---
HISTORY: hyperglycemia COMPARISON: Chest x-ray performed 04/21/18 TECHNIQUE: Chest, one view. FINDINGS: LUNGS: Mild biapical pleural thickening. No focal consolidation. Please note that chest x-ray has limited sensitivity for the detection of pulmonary masses. PLEURA: No significant pleural effusion identified. No definite pneumothorax . CARDIOVASCULAR: Heart size appears within normal limits. Atherosclerotic calcifications present. OSSEOUS STRUCTURES: Degenerative changes. VISUALIZED UPPER ABDOMEN: Elevation of the right hemidiaphragm. OTHER FINDINGS: None. IMPRESSION: Mild biapical pleural thickening.
[2018-04-24 17:36] LABS: INR 1.1; PROTHROMBIN TIME 11.9 SECONDS (9.7-12.2)
[2018-04-24] MEDS ORDERED: Sodium Chloride 0.9% 1,000 ML ONE (17:46)
[2018-04-24 17:51] LABS: SQUAMOUS EPITHIAL < 1 /hpf (0-5); URINE BILIRUBIN NEGATIVE (NEGATIVE); URINE BLOOD NEGATIVE (NEGATIVE); URINE CLARITY Clear (Clear); URINE COLOR Yellow (YELLOW); URINE GLUCOSE (UA) 3+ mg/dL (Normal); URINE LEUKOCYTE ESTERASE NEG Leu/uL (Negative); URINE PROTEIN NEGATIVE (NEGATIVE); URINE UROBILINOGEN NORMAL mg/dL (0.2-1.0)
[2018-04-24 17:54] LABS: CK-MB 0.59 ng/mL (0.0-3.38)
[2018-04-24 18:21] LABS: ALB/GLOB RATIO 1.2 (1.0-2.1); ALT/SGPT 36 U/L (9-52); AST/SGOT 19 U/L (14-36); BLOOD UREA NITROGEN 12 mg/dL (7-17); CALCIUM 9.6 mg/dl (8.6-10.4); GFR NON-AFRICAN AMERICAN > 60; LIPASE 159 U/L (23-300)
[2018-04-24] MEDS ORDERED: (Novolin R) Insulin Human Regular 100 units/ml vial SC ONE (18:49)
[2018-04-24] MEDS ORDERED: (Novolin R) Insulin Human Regular 100 units/ml vial ONE (19:01)
[2018-04-24 20:35] VITALS: RESP 20
[2018-04-24] MEDS ORDERED: diltiaZEM 240 mg/24 Hours CD Cap PO STA (21:58)
[2018-04-24] MEDS: Amoxicillin-Clav 500-125 mg Tab PO SCH (22:22)
[2018-04-24] MEDS: (Novolog) Insulin Aspart, Recombinant 100 u/ml 10 ml vial SC SCH (22:23)
[2018-04-25] MEDS: (Novolog) Insulin Aspart, Recombinant 100 u/ml 10 ml vial SC SCH ×2 (08:30→12:14)
--- NOTE | 2018-04-25 09:52 | CP.PCM.PN ---
Subjective - Date & Time of Evaluation Date of Evaluation: 04/25/18 Time of Evaluation: 08:00 - Subjective Subjective: PGY 3 medical progress note for Dr. Wu: Patient was seen and examined at bedside this morning. She has no acute complaints. She was sent for admission due to hyperglycemia. She denies headaches, changes in vision, polyuria or polydipsia. Objective - Vital Signs/Intake and Output Vital Signs (last 24 hours): Temp Pulse Resp BP Pulse Ox 98.2 F 61 20 157/68 H 95 04/25/18 08:00 04/25/18 08:00 04/25/18 08:00 04/25/18 08:00 04/25/18 08:00 Intake and Output: 04/25/18 04/25/18 06:59 18:59 Intake Total 420 Balance 420 - Medications Medications: Current Medications Amoxicillin/Clavulanate Potassium (Augmentin 500 Mg-125 Mg Tab) 1 tab PO Q12 [facility]; Protocol Last Admin: 04/24/18 22:22 Dose: 1 tab Aspirin (Aspirin Chewable) 81 mg PO DAILY [facility] Carvedilol (Coreg) 3.125 mg PO BID [facility] Last Admin: 04/24/18 22:23 Dose: 3.125 mg Clopidogrel Bisulfate (Plavix) 75 mg PO DAILY [facility] Diltiazem HCl (Cardizem Cd) 240 mg PO DAILY [facility] Enoxaparin Sodium (Lovenox) 40 mg SC DAILY [facility] Insulin Aspart (Novolog) 0 unit SC [facility]; Protocol Last Admin: 04/25/18 08:30 Dose: Not Given Mirtazapine (Remeron) 15 mg PO HS [facility] Last Admin: 04/24/18 22:24 Dose: 15 mg Risperidone (Risperdal Tab) 0.25 mg PO HS [facility] Last Admin: 04/24/18 22:25 Dose: 0.25 mg Rosuvastatin Calcium (Crestor) 10 mg PO [facility] Last Admin: 04/24/18 22:23 Dose: 10 mg - Labs Labs: 04/24/18 17:21 04/24/18 17:21 PT 11.9 SECONDS (9.7-12.2) 04/24/18 17:21 INR 1.1 04/24/18 17:21 APTT 35 SECONDS (21-34) H 04/24/18 17:21 - Constitutional Appears: Non-toxic, No Acute Distress - Head Exam Head Exam: ATRAUMATIC, NORMAL INSPECTION Additional comments: left facial droop - Eye Exam Eye Exam: EOMI, Normal appearance, PERRL - ENT Exam ENT Exam: Mucous Membranes Moist - Respiratory Exam Respiratory Exam: Clear to Ausculation Bilateral, NORMAL BREATHING PATTERN. absent: Accessory Muscle Use, Rales, Wheezes, Respiratory Distress - Cardiovascular Exam Cardiovascular Exam: REGULAR RHYTHM, +S1, +S2 - GI/Abdominal Exam GI & Abdominal Exam: Soft, Normal Bowel Sounds. absent: Distended, Firm, Guarding, Tenderness - Extremities Exam Extremities Exam: Normal Inspection - Back Exam Back Exam: NORMAL INSPECTION - Neurological Exam Neurological Exam: Alert, Awake. absent: Normal Gait Neuro motor strength exam: Left Upper Extremity: 0, Right Upper Extremity: 4, Left Lower Extremity: 0, Right Lower Extremity: 4 - Psychiatric Exam Psychiatric exam: Normal Affect, Normal Mood - Skin Skin Exam: Normal Color Assessment and Plan - Assessment and Plan (Free Text) Assessment: Diabetes - hyperglycemia Accuchecks ACHS ISS-Low dose Hypoglycemia protocol f/u HbA1c Metformin 500mg PO BID to be followed up outpatient Coronary artery disease 2 stent placement; 2010, Hx CABG Plavix 75mg PO daily Carvedilol 3.125mg PO BID ASA 81mg PO daily Crestor 10mg PO HS History of CVA With left sided facial droop and deficits Was recently hospitalized for TIA Meds as listed above Hypertension Cardizem CD 240mg PO QD, Coreg 3.125mg PO BID Hx. 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 Patient is to follow up with her primary care physician within one week of discharge for post hospital care. she is to r esume all of her home medications. she is to take Metformin 500mg one by mouth twice a day for sugar control. She will need to follow up with her primary care doctor regarding medications for diabetic management. Patient is to return to the ER if symptoms return.
[2018-04-25] MEDS ORDERED: diltiaZEM 240 mg/24 Hours CD Cap PO SCH (10:00)
[2018-04-25] MEDS ORDERED: Enoxaparin 40 mg Syringe SC SCH (10:00)
[2018-04-25 10:35] VITALS: BP 157/68; PULSE 61; TEMP 98.2; O2SAT 95
[2018-04-25] MEDS: Amoxicillin-Clav 500-125 mg Tab PO SCH (11:09)
[2018-04-25 11:24] LABS: BASO # 0.1 K/uL (0.0-0.2); BASO % 0.6 % (0.0-2.0); EOS # 0.3 K/uL (0.0-0.7); EOS % 3.3 % (0.0-4.0); HEMOGLOBIN 11.4 g/dL (11.0-16.0); LYMPH # 2.5 K/uL (1.0-4.3); LYMPH % 26.1 % (20.0-40.0); MEAN CELL VOLUME 84.3 fL (81.0-99.0); MEAN CORPUSCULAR HEMOGLOBIN 29.6 pg (27.0-31.0); MEAN CORPUSCULAR HGB CONC 35.1 g/dL (33.0-37.0); MEAN PLATELET VOLUME 7.6 fL (7.2-11.7); MONO # 0.5 K/uL (0.0-0.8); MONO % 5.5 % (0.0-10.0); NEUT # 6.1 K/uL (1.8-7.0); NEUT % 64.5 % (50.0-75.0); RBC 3.84 Mil/uL (3.80-5.20); RED CELL DISTRIBUTION WIDTH 13.1 % (11.5-14.5); WHITE BLOOD COUNT 9.4 K/uL (4.8-10.8)
[2018-04-25 11:57] LABS: ALB/GLOB RATIO 1.1 (1.0-2.1); ALBUMIN 3.5 g/dL (3.5-5.0); ALT/SGPT 43 U/L (9-52); AST/SGOT 30 U/L (14-36); BLOOD UREA NITROGEN 9 mg/dL (7-17); CALCIUM 9.4 mg/dl (8.6-10.4); GFR NON-AFRICAN AMERICAN > 60
[2018-04-25] MEDS ORDERED: Influenza Vaccine 60 MCG/0.5 ML SYR (3 yr & up) IM ONE (14:15)
[2018-04-25] MEDS ORDERED: Pneumococcal 23-Valent Vaccine SC ONE (14:15)
--- NOTE | 2018-04-25 19:39 | CARD ---
APPROVED REPORT Date of service: 04/24/2018 EKG Measurement Heart [id number] <Conclusion> Normal sinus rhythm ST & T wave abnormality, consider lateral ischemia Abnormal ECG
== END 2018-04-25 14:30 | disposition home or self-care (01) ==
LOC: C.ER 16:20 → C.9E 19:13 → C.3T 19:33
PROVIDERS: ADMIT Internal Medicine Pulmonary Disease; ATTEND Internal Medicine Pulmonary Disease
DX: E11.65 Type 2 diabetes mellitus with hyperglycemia (principal); I10 Essential (primary) hypertension; I25.10 Atherosclerotic heart disease of native coronary artery without angina pectoris; I48.91 Unspecified atrial fibrillation; I69.354 Hemiplegia and hemiparesis following cerebral infarction affecting left non-dominant side; F02.80 Dementia in other diseases classified elsewhere, unspecified severity, without behavioral disturbance, psychotic disturbance, mood disturbance, and anxiety; G30.9 Alzheimer's disease, unspecified; F32.3 Major depressive disorder, single episode, severe with psychotic features; E78.00 Pure hypercholesterolemia, unspecified; Z79.84 Long term (current) use of oral hypoglycemic drugs; Z95.5 Presence of coronary angioplasty implant and graft; Z95.1 Presence of aortocoronary bypass graft
CPT/HCPCS: 36415; 71045; 80053; 81001; 82009; 82550; 82553; 82948; 83036; 83690; 83735; 84100; 84484; 85025; 85610; 85730; 87086; 93005; 96360; 96372; 99285; G0378; J1650; J7030

== ENCOUNTER 2018-06-28 16:58 | Observation (INO) | payer MEDICARE, MEDICAID ==
--- NOTE | 2018-06-28 17:31 | C.PDOC ---
History Of Present Illness As per sister, 77 years old female with PMHx of x2 Strokes(Abi), cardiac stents (x2) presents to ED for complaints of chest pain associated with SOB that began this morning. Denies nausea, vomiting. As per sister, patient is normally non-ambulatory. Time Seen by Provider: 06/28/18 17:01 Chief Complaint (Nursing): Chest Pain History Per: Patient History/Exam Limitations: no limitations Onset/Duration Of Symptoms: Hrs Current Symptoms Are (Timing): Still Present Modifying Factors: None Exacerbating Factors: None Alleviating Factors: None Recent travel outside of the [place]: No Past Medical History Reviewed: Historical Data, Nursing Documentation, Vital Signs Vital Signs: Last Vital Signs Temp 98.3 F 06/28/18 17:09 Pulse 64 06/28/18 17:09 Resp 16 06/28/18 17:09 BP 139/70 06/28/18 17:09 Pulse Ox 98 06/28/18 17:09 - Medical History PMH: Alzheimer's Disease, Atrial Fibrillation, CAD, CVA, Depression, Diabetes, HTN, Hypercholesterolemia, TIA (Apr 2018) Surgical History: CABG, Coronary Stent - [facility] Procedures GROUP PSYCHOTHERAPY (12/12/17) INDIVIDUAL PSYCHOTHERAPY, BEHAVIORAL (12/12/17) Family History: States: Unknown Family Hx - Social History Hx Tobacco Use: No Hx Alcohol Use: Yes Hx Substance Use: No - Immunization History Hx Tetanus Toxoid Vaccination: No Hx Influenza Vaccination: Yes Hx Pneumococcal Vaccination: Yes Review Of Systems Except As Marked, All Systems Reviewed And Found Negative. Cardiovascular: Positive for: Chest Pain Respiratory: Positive for: Shortness of Breath Physical Exam - Physical Exam Appears: Non-toxic, No Acute Distress Skin: Warm, Dry, No Rash Head: Atraumatic, Normacephalic Eye(s): bilateral: Normal Inspection, PERRL, EOMI Oral Mucosa: Moist Neck: Normal ROM, Supple Chest: Symmetrical, No Tenderness Cardiovascular: Rhythm Regular, No Murmur Respiratory: Normal Breath Sounds, No Rales, No Rhonchi, No Wheezing Gastrointestinal/Abdominal: Soft, No Tenderness Extremity: Other (Left sided weakness secondary to previous CVA. Normal left sided weakness. ) Pulses: Left Radial: Normal, Right Radial: Normal Neurological/Psych: Oriented x3 Gait: With Assistance ED Course And Treatment - Laboratory Results Result Diagrams: 06/28/18 17:30 06/28/18 17:30 O2 Sat by Pulse Oximetry: 98 (RA) Pulse Ox Interpretation: Normal Medical Decision Making Medical Decision Making: Assessment: Chest Pain. Plan: * EKG * Blood work * CXR EKG: * Normal sinus rhythm at 60 bpm * Normal axis and intervals * T-wave inversions of 1 and AVL * T-Wave flat V2,V5,V6 18:[address]Elamir LEWIS and states will admit patient under observation. RE-Evaluation: Patient now complaining of left shoulder and arm pain w/ reproducible tenderness of that shoulder and left humerus. No infectious process. Will ordered xray of shoulder and humerus. Disposition Discussed With .: Emely Wu Counseled Patient/Family Regarding: Studies Performed, Diagnosis - Disposition Disposition: HOSPITALIZED Disposition Time: 18:20 Condition: FAIR - Clinical Impression Clinical Impression: Chest pain - Scribe Statement The provider has reviewed the documentation as recorded by the Kathiiblit Louise All medical record entries made by the Kathiiblit were at my direction and personally dictated by me. I have reviewed the chart and agree that the record accurately reflects my personal performance of the history, physical exam, medical decision making, and the department course for this patient. I have also personally directed, reviewed, and agree with the discharge instructions and disposition.
[2018-06-28 17:37] LABS: BASO # 0.1 K/uL (0.0-0.2); BASO % 0.9 % (0.0-2.0); EOS # 0.4 K/uL (0.0-0.7); EOS % 3.5 % (0.0-4.0); HEMOGLOBIN 13.8 g/dL (11.0-16.0); LYMPH # 3.6 K/uL (1.0-4.3); LYMPH % 35.7 % (20.0-40.0); MEAN CELL VOLUME 86.8 fL (81.0-99.0); MEAN CORPUSCULAR HEMOGLOBIN 29.1 pg (27.0-31.0); MEAN CORPUSCULAR HGB CONC 33.6 g/dL (33.0-37.0); MEAN PLATELET VOLUME 8.6 fL (7.2-11.7); MONO # 0.7 K/uL (0.0-0.8); MONO % 6.6 % (0.0-10.0); NEUT # 5.4 K/uL (1.8-7.0); NEUT % 53.3 % (50.0-75.0); NRBC % 0.1 % (0.0-2.0); RBC 4.72 Mil/uL (3.80-5.20); RED CELL DISTRIBUTION WIDTH 13.5 % (11.5-14.5); WHITE BLOOD COUNT 10.1 K/uL (4.8-10.8)
[2018-06-28 17:54] LABS: ALB/GLOB RATIO 1.3 (1.0-2.1); ALBUMIN 4.4 g/dL (3.5-5.0); ALT/SGPT 19 U/L (9-52); AST/SGOT 20 U/L (14-36); BLOOD UREA NITROGEN 21 mg/dL (7-17); CALCIUM 9.6 mg/dl (8.6-10.4); GFR NON-AFRICAN AMERICAN > 60
[2018-06-28 18:05] LABS: B-TYPE NATRIURETIC PEPTIDE 76.5 pg/mL (0-900)
[2018-06-28 18:15] VITALS: RESP 20
[2018-06-28] MEDS ORDERED: Aspirin 325 mg EC Tablets PO STA (18:19)
--- NOTE | 2018-06-28 18:22 | RAD ---
Date of service: 06/28/2018 PROCEDURE: CHEST RADIOGRAPH, 1 VIEW HISTORY: SOB COMPARISON: 04/24/2018 FINDINGS: LUNGS: Clear. PLEURA: No pneumothorax or pleural fluid seen. CARDIOVASCULAR: Atherosclerotic calcifications identified primarily aortic arch. No radiographic findings to suggest acute or significant cardiovascular disease. OSSEOUS STRUCTURES: No significant abnormalities. VISUALIZED UPPER ABDOMEN: Normal. OTHER FINDINGS: None. IMPRESSION: No active disease. No acute/significant interval changes.
--- NOTE | 2018-06-29 02:42 | CP.PCM.HP ---
History of Present Illness - History of Present Illness History of Present Illness: CC chest pain HPI: Patient is a 77 year old female with history of DM, CAD, CABG with stents, CVA (last in October) with residual left sided weakness, HTN, A fib, depression with psychotic features who presents with daughter for chest pain midsternal described as sharp pain that takes her breath away that comes every 30 minutes and lasts about a minute before it resolves. She states that when she experiences this chest pain, it takes her breath away. She states that she has had issues with acid reflux in the past few days and states that sometimes her chest pain is associated with the pain she feels in her chest. She also states she has had left arm and left shoulder pain for the past 3 to 4 days after she recently started receiving physical therapy for it about 1-2 weeks ago. She was reportedly not on physical therapy for a few weeks and recently restarted with physical therapy. She denies fevers, chills, sick contacts, nasal congestion, cough, sore throat, abdominal pain, nausea, vomiting, diarrhea, urinary frequency or dysuria. Patient is typically bedbound or in wheel chair, uses a diaper, attends daycare during the day. PMH: DM, CAD, CABG with stents, CVA (last in October) with residual left sided weakness, HTN, A fib, depression with psychotic features PSH: CABG with stents Social hx: no history of smoking, alcohol or drug use. Home meds: Coreg 3.125mg PO BID, Cardizem ER 240mg PO, Atorvastatin 80mg PO, ASA 81mg PO, Risperidone 0.25mg, Remeron 15mg PO HS, DM meds unknown Allergies: Lactose PMD: Dr. Wu Present on Admission - Present on Admission Any Indicators Present on Admission: No Review of Systems - Constitutional Constitutional: absent: Chills, Fever, Headache - EENT Eyes: absent: Change in Vision Nose/Mouth/Throat: absent: Nasal Congestion, Nasal Discharge, Sore Throat, Neck Pain - Cardiovascular Cardiovascular: Chest Pain, Dyspnea. absent: Palpitations, Syncope - Respiratory Respiratory: Dyspnea. absent: Cough - Gastrointestinal Gastrointestinal: absent: Abdominal Pain, Nausea, Vomiting - Genitourinary Additional comments: Wears a diaper - Musculoskeletal Musculoskeletal: Limited Range of Motion, Muscle Weakness (Left sided weakness of upper and lower extremity ) - Neurological Neurological: Weakness. absent: Confusion, Headaches - Psychiatric Psychiatric: absent: Anxiety, Depression Past Patient History - Infectious Disease Hx of Infectious Diseases: None - Past Medical History & Family History Past Medical History?: Yes - Past Social History Smoking Status: Never Smoked - CARDIAC Hx Atrial Fibrillation: Yes Hx Hypercholesterolemia: Yes Hx Hypertension: Yes - NEUROLOGICAL Hx Alzheimer's Disease: Yes Hx Transient Ischemic Attacks (TIA): Yes (Apr 2018) - ENDOCRINE/METABOLIC Hx Diabetes Mellitus Type 2: Yes - MUSCULOSKELETAL/RHEUMATOLOGICAL Hx Falls: Yes - PSYCHIATRIC Hx Depression: Yes Hx Substance Use: No - SURGICAL HISTORY Hx Coronary Artery Bypass Graft: Yes Hx Coronary Stent: Yes - ANESTHESIA Hx Anesthesia: Yes Hx Anesthesia Reactions: No Hx Malignant Hyperthermia: No Meds Allergies/Adverse Reactions: Allergies Allergy/AdvReac Type Severity Reaction Status Date / Time lactose Allergy Mild DIARRHEA Verified 04/24/18 16:29 Physical Exam - Constitutional Appears: Well, Non-toxic, No Acute Distress - Head Exam Head Exam: ATRAUMATIC, NORMOCEPHALIC - Eye Exam Eye Exam: EOMI, PERRL. absent: Conjunctival injection, Periorbital swelling - ENT Exam ENT Exam: Mucous Membranes Moist, Normal Oropharynx - Neck Exam Neck exam: Positive for: Full Rom. Negative for: Lymphadenopathy, Tenderness, Thyromegaly - Respiratory Exam Respiratory Exam: Clear to Auscultation Bilateral, NORMAL BREATHING PATTERN. absent: Rales, Rhonchi, Wheezes, Respiratory Distress, Stridor - Cardiovascular Exam Cardiovascular Exam: REGULAR RHYTHM, +S1, +S2. absent: Gallop, Rubs, Systolic Murmur - GI/Abdominal Exam GI & Abdominal Exam: Normal Bowel Sounds, Soft. absent: Distended, Firm, Guarding, Rigid, Tenderness - Extremities Exam Extremities exam: Positive for: normal capillary refill, pedal pulses present. Negative for: calf tenderness - Neurological Exam Additional comments: Lower extremity: Left weaker than right, but able to lift LLE up slightly. Upper extremity: Poor knife setter strength on left, unable to lift left arm. Right arm good strength, wax pourer 2-12 intact. No slurred speech noted. Results - Vital Signs Recent Vital Signs: Last Vital Signs Temp 97.8 F 06/28/18 23:15 Pulse 58 L 06/28/18 23:55 Resp 20 06/28/18 23:15 BP 128/64 06/28/18 23:15 Pulse Ox 95 06/28/18 23:15 - Labs Result Diagrams: 06/29/18 05:00 06/29/18 05:00 Labs: Laboratory Results - last 24 hr 06/28/18 06/28/18 06/28/18 17:26 17:30 17:30 WBC 10.1 RBC 4.72 Hgb 13.8 D Hct 41.0 MCV 86.8 D MCH 29.1 MCHC 33.6 RDW 13.5 Plt Count 274 MPV 8.6 Neut % (Auto) 53.3 Lymph % (Auto) 35.7 [place] % (Auto) 6.6 Eos % (Auto) 3.5 Baso % (Auto) 0.9 Neut # (Auto) 5.4 Lymph # (Auto) 3.6 [place] # (Auto) 0.7 Eos # (Auto) 0.4 Baso # (Auto) 0.1 Sodium 140 Potassium 4.3 Chloride 105 Carbon Dioxide 26 Anion Gap 14 BUN 21 H Creatinine 0.7 Est GFR ( Amer) > 60 Est GFR (Non-Af Amer) > 60 POC Glucose (mg/dL) 134 H Random Glucose 162 H D Calcium 9.6 Total Bilirubin 0.4 AST 20 ALT 19 Alkaline Phosphatase 85 Troponin I < 0.0120 NT-Pro-B Natriuret Pep 76.5 Total Protein 7.9 Albumin 4.4 Globulin 3.5 Albumin/Globulin Ratio 1.3 Assessment & Plan - Assessment and Plan (Free Text) Assessment: 77 year old female with history of DM, CAD, CABG with stents, CVA (last in October ) with residual left sided weakness, HTN, A fib, depression with psychotic features who presents for sharp chest pain. Plan: Atypical Chest pain, r/o ACS ASA 81mg Coreg 3.125mg PO Plavix 75mg PO Crestor 40mg PO HS Trops x2 neg, f/u Trop EKG: SR at 60 CXR negative Hx of CABG with stent placement Unclear of when stent placed as per recent note, 2010 Continue ASA, Plavix Hx of A fib Rate controlled Cardizem 60mg QID Coreg 3.125mg PO BID HTN Cardizem 240mg PO Coreg 3.125mg PO BID Hx of DM Low dose ISS hypoglycemia protocol Left shoulder pain Likely secondary to decreased strength of left upper extremity Continue PT/OT Xrays of left shoulder and left humerus: f/u official report Hx of CVA/TIA with chronic left sided weakness Weakness since stroke in October 2017 as per daughter No change in weakness Hx of MDD with psychotic features Risperidone 0.25mg PO HS Remeron 15mg PO HS PPX: scds, heparin protonix 40mg IV Case discussed with Dr. Jason Blackburn, PGY1
[2018-06-29] MEDS ORDERED: Dextrose 50% SYRINGE Inj (50 ml) IV PRN (02:57)
[2018-06-29] MEDS ORDERED: Glucagon Recombinant 1 mg Inj IM PRN (02:57)
[2018-06-29 05:02] LABS: BASO # 0.1 K/uL (0.0-0.2); BASO % 0.7 % (0.0-2.0); EOS # 0.4 K/uL (0.0-0.7); EOS % 4.4 % (0.0-4.0); HEMOGLOBIN 12.6 g/dL (11.0-16.0); LYMPH # 3.2 K/uL (1.0-4.3); LYMPH % 36.2 % (20.0-40.0); MEAN CELL VOLUME 85.7 fL (81.0-99.0); MEAN CORPUSCULAR HEMOGLOBIN 29.5 pg (27.0-31.0); MEAN CORPUSCULAR HGB CONC 34.4 g/dL (33.0-37.0); MEAN PLATELET VOLUME 8.6 fL (7.2-11.7); MONO # 0.7 K/uL (0.0-0.8); MONO % 8.3 % (0.0-10.0); NEUT # 4.5 K/uL (1.8-7.0); NEUT % 50.4 % (50.0-75.0); RBC 4.27 Mil/uL (3.80-5.20); RED CELL DISTRIBUTION WIDTH 13.7 % (11.5-14.5); WHITE BLOOD COUNT 8.9 K/uL (4.8-10.8)
[2018-06-29 06:25] LABS: ALB/GLOB RATIO 1.2 (1.0-2.1); ALBUMIN 3.8 g/dL (3.5-5.0); ALT/SGPT 18 U/L (9-52); AST/SGOT 15 U/L (14-36); BLOOD UREA NITROGEN 23 mg/dL (7-17); CALCIUM 9.3 mg/dl (8.6-10.4); GFR NON-AFRICAN AMERICAN > 60
[2018-06-29] MEDS: (Novolin R) Insulin Human Regular 100 units/ml vial SC SCH ×3 (08:09→17:00)
--- NOTE | 2018-06-29 12:23 | RAD ---
PROCEDURE: Radiographs of the Left Shoulder HISTORY: fall COMPARISON: Left shoulder radiographs performed 10/12/12 FINDINGS: BONES: Osseous demineralization limits evaluation for acute fracture lines. No acute displaced fracture. The distal clavicle and underlying ribs appear intact. JOINTS: No acute dislocation. Glenohumeral joint space narrowing. Acromioclavicular arthropathy. SOFT TISSUES: Soft tissues appear unremarkable. No evidence of radiopaque foreign body. Limited visualization of the chest: Hypoinflation. Probable coronary artery calcifications. IMPRESSION: Osseous demineralization. Degenerative changes. No acute displaced fracture or dislocation evident. If symptoms persist or if there is continued clinical concern, x-ray follow-up in 7-10 days should be considered.
--- NOTE | 2018-06-29 14:11 | MRI ---
Date of service: 06/29/2018 PROCEDURE: MRI BRAIN WITHOUT CONTRAST HISTORY: weakness COMPARISON: 04/17/2018. TECHNIQUE: Multiplanar, multisequence MR images of the brain were obtained without intravenous contrast enhancement. FINDINGS: HEMORRHAGE: None DWI: No evidence of an acute or early subacute infarction. BRAIN PARENCHYMA: There is redemonstration of cystic encephalomalacia and gliosis in the right frontal and parietal lobes, and parieto-occipital watershed territory with volume loss and ex vacuo dilatation of the right lateral ventricle. There is also cystic encephalomalacia and gliosis in the left occipital lobe with volume loss and ex vacuo dilatation of the left occipital horn. Again seen are chronic small lacunar infarctions in bilateral thalami and right basal ganglia. There are prominent perivascular spaces in bilateral basal ganglia. There is an empty sella, otherwise the midline sagittal structures are normal. Again seen are moderate chronic microangiopathic changes. VENTRICLES: There is moderate age-related global parenchymal volume loss and proportionate enlargement of the ventricles and cortical sulci. CRANIUM: Again seen heterogeneous predominantly hypo intense signal in the calvarium. There is normal signal in the visualized cervical vertebral bodies. ORBITS: Grossly unremarkable. PARANASAL SINUSES/MASTOIDS: Predominantly clear. VASCULAR SYSTEM: There is redemonstration of absent flow related signal void in the right cavernous carotid artery consistent with chronic occlusion. There are normal signal voids in the remaining larger intracranial arteries. OTHER FINDINGS: None. IMPRESSION: 1. No acute intracranial abnormality. 2. Cystic encephalomalacia and gliosis in the right frontal and parietal lobes, right parieto-occipital watershed territory and left occipital lobe, sequela of remote right MCA and MCA MUSIC AUTOGRAPHER watershed territory and left MUSIC AUTOGRAPHER territory infarctions. 3. Mild chronic microangiopathic changes and moderate age-related global parenchymal volume loss. 4. 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 4. Redemonstration of heterogeneous predominantly low signal in the calvarium could be related to marrow reconversion or anemia of chronic disease.
--- NOTE | 2018-06-29 15:16 | RAD ---
PROCEDURE: Radiographs of the left humerus. HISTORY: pain COMPARISON: None. FINDINGS: BONES: There is diffuse bone demineralization. No acute displaced fracture or bone destruction. Bone alignment is normal. The joint spaces are preserved. SOFT TISSUES: Normal. OTHER FINDINGS: None. IMPRESSION: No acute displaced fracture or dislocation.
[2018-06-29 15:37] VITALS: TEMP 97.7; O2SAT 95
[2018-06-29] MEDS ORDERED: Tramadol 25 mg PO ONE (17:35)
[2018-06-29 17:54] VITALS: BP 159/87; PULSE 79
--- NOTE | 2018-06-29 18:13 | CARD ---
APPROVED REPORT Date of service: 06/29/2018 EKG Measurement Heart [id number] MI 168P65 [id number] <Conclusion> Normal sinus rhythm ST & T wave abnormality, consider lateral ischemia Abnormal ECG
--- NOTE | 2018-06-29 18:22 | CARD ---
APPROVED REPORT Date of service: 06/29/2018 EKG Measurement Heart [id number] TN 148P72 [id number] <Conclusion> Normal sinus rhythm T wave abnormality, consider lateral ischemia Abnormal ECG
--- NOTE | 2018-06-29 18:32 | CARD ---
APPROVED REPORT Date of service: 06/28/2018 EKG Measurement Heart [id number] WA 160P54 [id number] <Conclusion> Sinus rhythm with premature atrial complexes ST & T wave abnormality, consider lateral ischemia Abnormal ECG
[2018-07-01] MEDS ORDERED: Pneumococcal 23-Valent Vaccine IM ONE (10:00)
[2018-07-01] MEDS ORDERED: Influenza Vaccine 60 MCG/0.5 ML SYR (3 yr & up) IM ONE (11:00)
== END 2018-06-29 18:07 | disposition home or self-care (01) ==
LOC: C.ER 16:58 → C.9E 18:19 → C.6T 22:15
PROVIDERS: ADMIT Internal Medicine Pulmonary Disease; ATTEND Internal Medicine Pulmonary Disease
DX: R07.9 Chest pain, unspecified (principal); G30.9 Alzheimer's disease, unspecified; I48.91 Unspecified atrial fibrillation; E11.9 Type 2 diabetes mellitus without complications; E78.00 Pure hypercholesterolemia, unspecified; I25.10 Atherosclerotic heart disease of native coronary artery without angina pectoris; K21.9 Gastro-esophageal reflux disease without esophagitis; Z74.01 Bed confinement status; Z95.1 Presence of aortocoronary bypass graft; I10 Essential (primary) hypertension; Z95.5 Presence of coronary angioplasty implant and graft
CPT/HCPCS: 36415; 70551; 71045; 73030; 73060; 80053; 82948; 83735; 83880; 84100; 84484; 85025; 93005; 96372; 96374; 97162; 97166; 97530; 99285; G0378; G8978; G8979; G8987; G8988; J1644; J1885

== ENCOUNTER 2018-08-25 13:11 | Emergency (ER) | payer MEDICARE, MEDICAID ==
[2018-08-25] MEDS ORDERED: Sodium Chloride 0.9% 1,000 ML IV ONE (13:55)
[2018-08-25 14:02] VITALS: RESP 20
--- NOTE | 2018-08-25 14:05 | C.PDOC ---
History Of Present Illness 77 year old female with a history of HTN, stroke, left-sided weakness (baseline), high cholesterol, and cardiac stent presents to the emergency department with complaints of intemittent chest pain and watery diarrhea since last night. As per family, the chest pain comes and goes. Family reports that the patient attends an adult daycare, and is suicidal, stating that "she doesn't want to be a burden." Patient is threatening to strangle herself Patient denies sob, cough, fever, chills, vomiting, or recent travel. Family is translating Croatian. Time Seen by Provider: 08/25/18 13:26 Chief Complaint (Nursing): Chest Pain History Per: Family History/Exam Limitations: no limitations Onset/Duration Of Symptoms: Days (1) Current Symptoms Are (Timing): Still Present Quality: "Pain" Past Medical History Reviewed: Historical Data, Nursing Documentation, Vital Signs Vital Signs: Last Vital Signs Temp 97.6 F 08/25/18 13:25 Pulse 92 H 08/25/18 13:25 Resp 20 08/25/18 13:25 BP 149/75 08/25/18 13:25 Pulse Ox 98 08/25/18 13:25 - Medical History PMH: Alzheimer's Disease, Atrial Fibrillation, CAD, CVA, Depression, Diabetes, HTN, Hypercholesterolemia, TIA (Apr 2018) Surgical History: CABG, Coronary Stent - [facility] GROUP PSYCHOTHERAPY (12/12/17) INDIVIDUAL PSYCHOTHERAPY, BEHAVIORAL (12/12/17) Family History: States: No Known Family Hx - Social History Hx Tobacco Use: No Hx Alcohol Use: No Hx Substance Use: No - Immunization History Hx Tetanus Toxoid Vaccination: No Hx Influenza Vaccination: Yes Hx Pneumococcal Vaccination: Yes Review Of Systems Except As Marked, All Systems Reviewed And Found Negative. Constitutional: Negative for: Fever, Chills Cardiovascular: Positive for: Chest Pain Respiratory: Negative for: Cough Gastrointestinal: Positive for: Diarrhea. Negative for: Vomiting Neurological: Positive for: Weakness Psych: Positive for: Suicidal ideation Physical Exam - Physical Exam Appears: Non-toxic, In Acute Distress Skin: Normal Color, Warm, Dry Head: Atraumatic, Normacephalic Eye(s): bilateral: Normal Inspection, PERRL, EOMI Oral Mucosa: Dry, Other (pink) Neck: Normal, Supple Chest: Symmetrical, No Tenderness Cardiovascular: Rhythm Regular, No Murmur Respiratory: Decreased Breath Sounds, No Rales, No Rhonchi, No Wheezing Gastrointestinal/Abdominal: Bowel Sounds (increased), Soft, No Tenderness, No Guarding, No Rebound Extremity: Normal ROM, No Tenderness, No Pedal Edema, No Swelling Neurological/Psych: Oriented x3, Other (left upper and lower extremity weakness per baseline) ED Course And Treatment - Laboratory Results Result Diagrams: 08/25/18 14:39 08/25/18 14:39 Interpretation Of ECG: Normal sinus rhythm at 89bpm, T-wave inversion 1AVL, no ST elevation. EKG unchanged from prior on 06-19-18. O2 Sat by Pulse Oximetry: 98 (RA) Pulse Ox Interpretation: Normal - Radiology CXR: Viewed By Me, Read By Radiologist CXR Interpretation: Yes: No Acute Disease Medical Decision Making Medical Decision Making: Plan: EKG Chemistry CBC CXR NaCl IV Fluids Urinalysis Upon re-eval, patient is medically clear for psychiatric admission. 19:05 Upon crisis evaluation, patient is to be transferred to [place], for geriatric psych, accepted by Dr. Miller. Patient being treated for UTI with Bactrim. Spoke to Dr. Gomez, accepted the patient to observation telemetry. Disposition Counseled Patient/Family Regarding: Studies Performed, Diagnosis - Disposition Disposition: Trans to Other Acute Care Hosp Disposition Time: 19:05 Condition: STABLE Forms: [facility] (Frisian) - POA Present On Arrival: None - Clinical Impression Clinical Impression: Chest discomfort, UTI (urinary tract infection), Hyperglycemia, Suicidal ideation - Scribe Statement The provider has reviewed the documentation as recorded by the Scribe (Vik Lui) Provider Attestation: All medical record entries made by the Scribe were at my direction and personally dictated by me. I have reviewed the chart and agree that the record accurately reflects my personal performance of the history, physical exam, medical decision making, and the department course for this patient. I have also personally directed, reviewed, and agree with the discharge instructions and d isposition.
--- NOTE | 2018-08-25 14:24 | RAD ---
Date of service: 08/25/2018 PROCEDURE: CHEST RADIOGRAPH, 1 VIEW HISTORY: chest pain COMPARISON: 06/28/2018 FINDINGS: LUNGS: Clear. PLEURA: No pneumothorax or pleural fluid seen. CARDIOVASCULAR: No aortic atherosclerotic calcification present. Normal. OSSEOUS STRUCTURES: No significant abnormalities. VISUALIZED UPPER ABDOMEN: Normal. OTHER FINDINGS: None. IMPRESSION: No active disease.
[2018-08-25 14:42] LABS: BASO # 0.1 K/uL (0.0-0.2); BASO % 0.8 % (0.0-2.0); EOS # 0.3 K/uL (0.0-0.7); EOS % 2.5 % (0.0-4.0); HEMOGLOBIN 13.9 g/dL (11.0-16.0); LYMPH # 2.8 K/uL (1.0-4.3); LYMPH % 26.3 % (20.0-40.0); MEAN CELL VOLUME 86.9 fL (81.0-99.0); MEAN CORPUSCULAR HEMOGLOBIN 28.8 pg (27.0-31.0); MEAN CORPUSCULAR HGB CONC 33.1 g/dL (33.0-37.0); MEAN PLATELET VOLUME 8.5 fL (7.2-11.7); MONO # 0.8 K/uL (0.0-0.8); MONO % 7.7 % (0.0-10.0); NEUT # 6.7 K/uL (1.8-7.0); NEUT % 62.7 % (50.0-75.0); RBC 4.84 Mil/uL (3.80-5.20); RED CELL DISTRIBUTION WIDTH 13.5 % (11.5-14.5); WHITE BLOOD COUNT 10.7 K/uL (4.8-10.8)
[2018-08-25 14:53] LABS: ALB/GLOB RATIO 1.2 (1.0-2.1); ALBUMIN 4.4 g/dL (3.5-5.0); ALT/SGPT 22 U/L (9-52); AST/SGOT 18 U/L (14-36); BLOOD UREA NITROGEN 15 mg/dL (7-17); CALCIUM 9.9 mg/dl (8.6-10.4); GFR NON-AFRICAN AMERICAN > 60; LIPASE 32 U/L (23-300)
[2018-08-25 15:05] LABS: B-TYPE NATRIURETIC PEPTIDE 111 pg/mL (0-900)
[2018-08-25 16:18] LABS: BARBITURATES, UR NEGATIVE (NEGATIVE); BENZODIAZEPINES, UR NEGATIVE (NEGATIVE); OPIATES, UR NEGATIVE (NEGATIVE); PHENCYCLIDINE, UR NEGATIVE (NEGATIVE)
[2018-08-25 16:37] LABS: SQUAMOUS EPITHIAL < 1 /hpf (0-5); URINE BACTERIA FEW (<OCC); URINE BILIRUBIN NEGATIVE (NEGATIVE); URINE BLOOD 1+ (NEGATIVE); URINE CLARITY Hazy (Clear); URINE COLOR Yellow (YELLOW); URINE GLUCOSE (UA) NORMAL (Normal); URINE LEUKOCYTE ESTERASE 1+ Leu/uL (Negative); URINE PROTEIN NEGATIVE (NEGATIVE); URINE UROBILINOGEN NORMAL mg/dL (0.2-1.0)
[2018-08-25] MEDS ORDERED: Tmp-Smz 800 mg-160 mg DS Tab PO STA (18:23)
[2018-08-25] MEDS ORDERED: Tmp-Smz 800 mg-160 mg DS Tab ONE (18:34)
[2018-08-25 20:47] VITALS: BP 133/60; PULSE 85; TEMP 98.3
[2018-08-25 20:50] VITALS: O2SAT 98
--- NOTE | 2018-08-28 19:53 | CARD ---
APPROVED REPORT Date of service: 08/25/2018 EKG Measurement Heart [id number] PA 140P78 [id number] <Conclusion> Normal sinus rhythm ST & T wave abnormality, consider lateral ischemia Abnormal ECG
== END 2018-08-25 20:49 | disposition short-term general hospital (02) ==
LOC: C.ER 13:11
DX: E11.65 Type 2 diabetes mellitus with hyperglycemia (principal); R07.9 Chest pain, unspecified; N39.0 Urinary tract infection, site not specified; R45.851 Suicidal ideations; I25.10 Atherosclerotic heart disease of native coronary artery without angina pectoris; I48.91 Unspecified atrial fibrillation; I10 Essential (primary) hypertension; E78.00 Pure hypercholesterolemia, unspecified; G30.9 Alzheimer's disease, unspecified; Z86.73 Personal history of transient ischemic attack (TIA), and cerebral infarction without residual deficits; Z95.1 Presence of aortocoronary bypass graft; Z95.5 Presence of coronary angioplasty implant and graft
CPT/HCPCS: 71045; 80053; 81001; 83690; 83880; 84484; 85025; 93005; 99285; G0480; J7030